=== PATIENT | female | born 1940 | race Caucasian/White ===

== ENCOUNTER 2019-06-17 09:17 | Outpatient (CLI) | payer MEDICARE, OTHER, SELFPAY ==
--- NOTE | 2019-06-17 09:37 | XR_ITS ---
WS: [id number] Mandible 4 views. HISTORY: Localized pain and swelling. Left-sided abscess. No soft tissue mass or air is identified adjacent to the LEFT mandible. No destruction of the cortex. No osteomyelitis is appreciated. No calcifications. XR/XR mandible min 4V [id number] IMPRESSION: No air collection or osteomyelitis.
[2019-06-17 10:10] LABS: Basophils % 0.6 %; Eosinophils # 0.4 10^3/uL (0.0-0.8); Eosinophils % 5.6 %; Hematocrit 41.9 % (37.0-47.0); Hemoglobin 13.8 g/dL (11.5-15.3); Lymphocytes # 0.9 10^3/uL (0.8-4.8); Lymphocytes % 12.4 %; Mean Corpuscular HGB Conc 32.9 g/dL (30.0-36.0); Mean Corpuscular Hemoglobin 28.7 pg (28.0-34.0); Mean Corpuscular Volume 87.1 fL (81-99); Mean Platelet Volume 9.2 fL (7.4-10.4); Monocytes # 0.7 10^3/uL (0.2-0.9); Neutrophils # 5.2 10^3/uL (1.8-7.7); Neutrophils % 72.1 %; Nucleated Red Blood Cells % 0 %; Platelet Count 313 10^3/cmm (130-400); Red Blood Count 4.81 10^6/uL (4.1-5.3); Red Cell Distribution Width 12.7 % (12.1-15.1); White Blood Count 7.2 10^3/uL (4.0-10.0)
[2019-06-17 10:57] LABS: Erythrocyte Sedimentation Rate 25 mm/hr (0-15)
== END 2019-06-17 09:18 | disposition home or self-care (01) ==
PROVIDERS: Family Provider Family Medicine; PCP Family Medicine; Visit Provider Specialist
DX: R68.84 Jaw pain (principal)
CPT/HCPCS: 36415; 70110; 85025; 85651; 87040

== ENCOUNTER 2019-06-22 08:48 | Outpatient (CLI) | payer MEDICARE, OTHER, SELFPAY ==
--- NOTE | 2019-06-22 08:55 | CT_ITS ---
WS: [id number] CT NECK TECHNIQUE: Contrast-enhanced CT of the neck with coronal and sagittal reformatted images. CLINICAL INFORMATION: LOCALIZED SWELLING, MASS, LUMP,NECK COMPARISON: None. DLP: 578.[address] scans at [facility] use at least one of these dose optimization techniques: automat ed exposure control; mA and/or kV adjustment per patient size (includes targeted exams where dose is matched to clinical indication); or iterative reconstruction. FINDINGS: Parotid glands are normal in appearance. Heterogeneously enhancing mass in the submandibular space ab utting the anterior aspect of the left submandibular gland. Submandibular space mass measures 2.2 x 2 .4 x 2.5 CM. This corresponds to the palpable marker. Associated mass effect on the anterior submandi bular gland. Findings are most consistent with malignancy. Consider primary salivary gland neoplasm v ersus metastatic disease. No evidence of supraglottic or glottic mass. Normal epiglottis. Subglottic airway is patent. Normal t hyroid gland. No other evidence of cervical lymphadenopathy. Right submandibular space is normal. Par anasal sinuses and mastoid air cells are well aerated. Advanced spondylitic changes cervical spine wi th grade 1 anterolisthesis C4 on C5 and C7 on T1. CT/CT neck w con* [id number] IMPRESSION: 1. Heterogeneously enhancing mass with central necrosis low-attenuation change corresponds to the palpable marker. This involves the left submandibular space with mass effect on the anterior aspect of the submandibular gland. Findings a re most consistent with neoplasm and consider primary salivary gland neoplasm v ersus metastatic disease. 2. Right submandibular gland and parotid glands are normal in appearance. 3. No evidence of supraglottic or glottic mass. 4. Tongue base appears normal. 5. Advanced spondylitic changes cervical spine. 6. Moderate calcified atheromatous disease both carotid bulbs left [place] right. Carotid arteries could be further evaluated with CTA or ultrasound.
[2019-06-22 09:59] LABS: Blood Urea Nitrogen 14 mg/dL (8-23)
[2019-06-22] MEDS: iohexol 300 mg/mL 100 mL Btl IV (10:09)
== END 2019-06-22 08:49 | disposition home or self-care (01) ==
LOC: CT 08:50
PROVIDERS: Family Provider Family Medicine; PCP Family Medicine; Visit Provider Specialist
DX: R22.1 Localized swelling, mass and lump, neck (principal); I67.2 Cerebral atherosclerosis
CPT/HCPCS: 36415; 70491; 82565; 84520

== ENCOUNTER 2019-11-13 11:39 | Inpatient (IN) | payer MEDICARE, OTHER, SELFPAY ==
[2019-11-13] VITALS (20 sets, daily range): BP systolic 103–122; BP diastolic 48–70; PULSE 64–83; RESP 14–20; TEMP 36.6–37; O2SAT 90–99; BMI 20.6
--- NOTE | 2019-11-13 11:48 | ECG_ITS ---
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 Measurements Intervals [place] Rate: 75 P: 38 [place]: 194 QRS: 15 QRSD: 94 T: 53 QT: 382 QTc: 428 Interpretive Statements SINUS RHYTHM WITH SINUS ARRHYTHMIA No previous ECG available for comparison Electronically Signed On 11-13-2019 13:55:25 CDT by Jg Morgan M.D. [id number]
--- NOTE | 2019-11-13 11:48 | XRR_ITS ---
PROCEDURE INFORMATION: Exam: XR Right Hip with Pelvis when Performed Exam date and time: 11/13/2019 11:49 AM Age: 78 years old Clinical indication: Injury or trauma; Fall; Initial encounter; Blunt trauma (contusions or hematomas); Right; Hip TECHNIQUE: Imaging protocol: XR Right hip with pelvis when performed. Views: 1 view. COMPARISON: CT Chest/Abdomen/Pelvis o 07/26/2014 2:52 PM FINDINGS: Bones/joints: There is a fracture of the right femoral neck. There is also a fracture of the right inferior pubic ramus. There is osteopenia. No dislocation. Soft tissues: Unremarkable. XR/XR hip RT 2-3V wo/w pel* [id number] IMPRESSION: There is a fracture of the right femoral neck and right inferior pubic ramus. If there is desire for further evaluation, a CT scan could be performed.
--- NOTE | 2019-11-13 12:13 | PC.NURSE ---
Lab at bedside to draw blood
[2019-11-13 12:19] LABS: Basophils % 0.3 %; Eosinophils # 0.2 10^3/uL (0.0-0.8); Eosinophils % 2.1 %; Hemoglobin 7.1 g/dL (11.5-15.3); Lymphocytes # 0.9 10^3/uL (0.8-4.8); Lymphocytes % 9.8 %; Mean Corpuscular HGB Conc 30.9 g/dL (30.0-36.0); Mean Corpuscular Hemoglobin 30.3 pg (28.0-34.0); Mean Corpuscular Volume 98.3 fL (81-99); Mean Platelet Volume 9.3 fL (7.4-10.4); Monocytes # 0.8 10^3/uL (0.2-0.9); Monocytes % 9.2 %; Neutrophils # 6.7 10^3/uL (1.8-7.7); Neutrophils % 77.2 %; Nucleated Red Blood Cells % 0 %; Platelet Count 348 10^3/cmm (130-400); Red Blood Count 2.34 10^6/uL (4.1-5.3); Red Cell Distribution Width 15.7 % (12.1-15.1); White Blood Count 8.7 10^3/uL (4.0-10.0)
[2019-11-13 12:27] LABS: INR 0.96 (0.8-1.2)
[2019-11-13] MEDS: ondansetron 2 mg/ML SDV 2 mL 4 MG IVP (12:28)
[2019-11-13] MEDS: fentaNYL 50 mcg/mL INJ 2mL 25 MCG IVP ×2 (12:28→13:51)
[2019-11-13 12:33] LABS: Alanine Aminotransferase 21 U/L (0-33); Albumin Level 3.5 g/dL (3.5-5.2); Alkaline Phosphatase 93 IU/L (35-105); Aspartate Amino Transferase 25 U/L (0-32); Blood Urea Nitrogen 16 mg/dL (8-23); Calcium 9.3 mg/dL (8.5-10.5); Carbon Dioxide 30 mmol/L (22-29); Chloride 98 mmol/L (98-107); Globulin 3.1 g/dL (1.3-4.6); Glucose 142 mg/dL (65-115); Osmolality Calculated 279 mOsm/kg (285-295); Sodium 135 mmol/L (136-145); Total Bilirubin 0.3 mg/dL (0.15-1.2); Total Protein 6.6 g/dL (6.6-8.7)
--- NOTE | 2019-11-13 12:41 | PC.NURSE ---
XR performed at bedside
--- NOTE | 2019-11-13 12:51 | PC.NURSE ---
Pt provided with warm blanket, no other needs at this time. Call light in reach, visitor at bedside. Pt placed on mitering machine operator
--- NOTE | 2019-11-13 13:01 | XRR_ITS ---
PROCEDURE INFORMATION: Exam: XR Chest, 1 View Exam date and time: 11/13/2019 1:03 PM Age: 78 years old Clinical indication: Pain; Patient HX: Pro op for hip SX; Additional info: Dyspnea/cough TECHNIQUE: Imaging protocol: XR of the chest Views: 1 view. COMPARISON: CR Chest 2 views* [id number] 03/10/2019 1:11 PM FINDINGS: Lungs: There is chronic lung change. No acute pneumonia or edema. Pleural space: Unremarkable. No pleural effusion. No pneumothorax. Heart/Mediastinum: Unremarkable. No cardiomegaly. Bones/joints: Unremarkable. XR/XR chest 1V portable [id number] IMPRESSION: There are no acute concerning abnormalities.
--- NOTE | 2019-11-13 13:02 | ECG_ITS ---
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 Measurements Intervals [place] Rate: 81 P: 258 ND: 170 QRS: 17 QRSD: 101 T: 58 QT: 412 QTc: 479 Interpretive Statements SINUS RHYTHM NONSPECIFIC T-WAVE ABNORMALITY Compared to ECG 11/13/2019 12:23:23 T-wave abnormality now present Sinus arrhythmia no longer present Electronically Signed On 11-14-2019 19:56:27 CDT by Jg Morgan M.D. [id number]
--- NOTE | 2019-11-13 13:08 | W.ED.FALL ---
HPI - Fall General: Chief Complaint: Fall Stated Complaint: RIGHT HIP AND FEMUR PAIN /P FALL Time Seen by Provider: 11/13/19 11:42 History of Present Illness: HPI Narrative: 78-year-old female brought in by EMS after a fall at home she tripped over a patch she has right hip pain holding in a flexed position unable to express extended she also has an abrasion on her right hand. 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 She is also become profoundly anemic she has been being worked up by Dr. Murphy for that and is still anemic today. She denies any other injuries when she fell today and she is not denies any respiratory illness or exposure to anyone with COVID that she is aware of. MD complaint: fall Onset (ago): minute(s) Fall from: standing Fall witnessed: yes, by family Place fall occurred: home Loss of consciousness: None Prolonged down time: no Symptoms prior to fall: none Context: tripped/slipped Location of injury: pelvis Severity: severe Quality: sharp Associated symptoms-after fall: Reports no associated symptoms; Denies abdominal pain or chest pain Review of Systems Const: Denies: fever(s), chills, body aches, change in appetite, fatigue or malaise ENMT: Denies: throat pain, ear or mastoid pain, nasal discharge or nasal congestion Card: Denies: chest pain, edema, dyspnea on exertion or orthopnea Resp: Denies: dyspnea, productive cough or non-productive cough GI: Denies: abdominal pain, nausea, vomiting, hematemesis, coffee ground emesis, diarrhea, constipation, bloating, hematochezia or melena : Denies: flank pain, difficulty voiding, dysuria, urinary frequency or urinary urgency Musc: Reports: extremity pain (Right hip pain held in a flexed position. She also has some abrasions on the knuckles of her right hand) Skin/Breast: Denies: rash or pruritus PFSH ED PFSH: Medical History (Updated 11/13/19 @ 14:52 by Papito Laureano DO) CAD (coronary artery disease) DVT (deep venous thrombosis) History of atrial fibrillation History of cancer Hypertension Squamous cell carcinoma of pharynx Surgical History (Updated 11/13/19 @ 13:12 by Papito Laureano DO) History of mandibular surgery S/P percutaneous endoscopic gastrostomy (PEG) tube placement Physical Exam Const: COMMON NORMALS: no acute distress GENERAL APPEARANCE: cooperative and comfortable ORIENTATION/CONSCIOUSNESS: Yes awake, Yes oriented to person, Yes oriented to place and Yes oriented to time HENMT: COMMON NORMALS: hearing grossly normal bilaterally, external ears normal, EAC's normal, TM's normal bilaterally, Normal nasal mucous membranes and turbinates present, moist oral mucous membranes and oropharynx normal NOSE: Normal nasal mucous membranes and turbinates present EXTERNAL EAR: Yes external ears normal EXTERNAL AUDITORY CANAL: EAC's normal TYMPANIC MEMBRANE: TM's normal bilaterally OTHER: Obvious deformity of the mandible with portions missing on the right side. There is also deformity of the tongue secondary to resection. Eye: COMMON NORMALS: Equal, round and reactive pupils present, EOMs intact bilaterally, conjunctivae normal and no scleral icterus CONJUNCTIVA: Yes conjunctivae normal PUPIL: Yes Equal, round and reactive pupils present Neck/C-Spine: COMMON NORMALS: full ROM, no lymphadenopathy, supple and no JVD Lymph: LYMPHATIC: no lymphadenopathy noted and no lymphedema noted Resp: COMMON NORMALS: normal respiratory effort, No retractions, No use of accessory muscles and clear to auscultation bilaterally AUSCULTATION: clear to auscultation bilaterally Cardio: COMMON NORMALS: no JVD, regular rate, regular rhythm and No murmurs present (Cardio) RATE: regular rate RHYTHM: regular rhythm GI: COMMON NORMALS: Soft to palpation and No hepatosplenomegaly present AUSCULTATION: Yes normoactive bowel sounds PALPATION: Yes Soft to palpation, No Tenderness to palpation present (GI), No Guarding due to palpation present (GI) and Yes No hepatosplenomegaly present Extremity: NARRATIVE EXTREMITY EXAM: Hip held in the flexed position on the right due to pain. When she was able to extend it after a time there is some shortening and external rotation Neuro: SENSORIUM/ORIENTATION: Yes oriented to person, Yes oriented to place and Yes oriented to time Skin: COMMON NORMALS: no rashes or lesions noted GENERAL SKIN EXAM: no rashes or lesions noted Course Vital Signs: Vital signs: Vital Signs Temperature 97.8 F 11/13/19 12:08 Pulse Rate 80 11/13/19 14:48 Respiratory Rate 14 11/13/19 14:48 Blood Pressure 115/56 11/13/19 14:48 Pulse Oximetry 98 11/13/19 14:48 MDM - Fall MDM Narrative: Medical decision making narrative: Impacted femoral neck fracture looks like she also has inferior pubic ramus fracture as well. Her hemoglobin is low she will need to be transfused prior to going to the operating room to units packed red blood cells have been ordered discussed Dr. Levine waiting on a call back from Dr. Dale. Lab Data: Labs: Lab Results 11/13/19 11/13/19 11/13/19 Range/Units 12:12 12:12 12:12 WBC 8.7 (4.0-10.0) 10^3/ uL RBC 2.34 L (4.1-5.3) 10^6/u L Hgb 7.1 L (11.5-15.3) g/dL Hct 23.0 L (37.0-47.0) % MCV 98.3 (81-99) fL MCH 30.3 (28.0-34.0) pg MCHC 30.9 (30.0-36.0) g/dL RDW 15.7 H (12.1-15.1) % Plt Count 348 (130-400) 10^3/c mm MPV 9.3 (7.4-10.4) fL Neut % (Auto) 77.2 % Lymph % (Auto) 9.8 % Prentiss % (Auto) 9.2 % Eos % (Auto) 2.1 % Baso % (Auto) 0.3 % Neut # (Auto) 6.7 (1.8-7.7) 10^3/u L Lymph # (Auto) 0.9 (0.8-4.8) 10^3/u L Prentiss # (Auto) 0.8 (0.2-0.9) 10^3/u L Eos # (Auto) 0.2 (0.0-0.8) 10^3/u L Baso # (Auto) 0.0 (0.0-0.1) 10^3/u L Nucleated RBC % (a uto) 0 % Nucleated RBCs # 0.0 /100WBC PT 13.10 (10.5-13.3) SECO NDS INR 0.96 (0.8-1.2) Sodium 135 L (136-145) mmol/L Potassium 4.0 (3.5-5.1) mmol/L Chloride 98 (98-107) mmol/L Carbon Dioxide 30 H (22-29) mmol/L Anion Gap 11.0 (5-19) BUN 16 (8-23) mg/dL Creatinine 0.5 (0.5-0.9) mg/dL Glucose 142 H (65-115) mg/dL Calculated Osmolal ity 279 L (285-295) mOsm/k g Calcium 9.3 (8.5-10.5) mg/dL Total Bilirubin 0.3 (0.15-1.2) mg/dL AST 25 (0-32) U/L ALT 21 (0-33) U/L Alkaline Phosphata se 93 (35-105) IU/L Total Protein 6.6 (6.6-8.7) g/dL Albumin 3.5 (3.5-5.2) g/dL Globulin 3.1 (1.3-4.6) g/dL Urine Color (Yellow) Urine Appearance (CLEAR) Urine pH (5-7) Ur Specific Gravit y (1.005-1.030) Urine Protein (Negative) Urine Glucose (UA) (Normal) Urine Ketones (Negative) Urine Blood (Negative) Urine Nitrate (Negative) Urine Bilirubin (NEGATIVE) Prot Sulfosalicyli c Acd (Negative) Urine Urobilinogen (Negative) mg/dL Ur Leukocyte Melvi ase (Negative) Urine RBC (0-2) /hpf Urine WBC (0-5) /hpf Ur Squamous Epith Cells (0-5) Amorphous Sediment Urine Bacteria (NONE) Urine Mucus Blood Type Rho(D) Type Crossmatch 11/13/19 11/13/19 Range/Units 13:23 13:31 WBC (4.0-10.0) 10^3/ uL RBC (4.1-5.3) 10^6/u L Hgb (11.5-15.3) g/dL Hct (37.0-47.0) % MCV (81-99) fL MCH (28.0-34.0) pg MCHC (30.0-36.0) g/dL RDW (12.1-15.1) % Plt Count (130-400) 10^3/c mm MPV (7.4-10.4) fL Neut % (Auto) % Lymph % (Auto) % Prentiss % (Auto) % Eos % (Auto) % Baso % (Auto) % Neut # (Auto) (1.8-7.7) 10^3/u L Lymph # (Auto) (0.8-4.8) 10^3/u L Prentiss # (Auto) (0.2-0.9) 10^3/u L Eos # (Auto) (0.0-0.8) 10^3/u L Baso # (Auto) (0.0-0.1) 10^3/u L Nucleated RBC % (a uto) % Nucleated RBCs # /100WBC PT (10.5-13.3) SECO NDS INR (0.8-1.2) Sodium (136-145) mmol/L Potassium (3.5-5.1) mmol/L Chloride (98-107) mmol/L Carbon Dioxide (22-29) mmol/L Anion Gap (5-19) BUN (8-23) mg/dL Creatinine (0.5-0.9) mg/dL Glucose (65-115) mg/dL Calculated Osmolal ity (285-295) mOsm/k g Calcium (8.5-10.5) mg/dL Total Bilirubin (0.15-1.2) mg/dL AST (0-32) U/L ALT (0-33) U/L Alkaline Phosphata se (35-105) IU/L Total Protein (6.6-8.7) g/dL Albumin (3.5-5.2) g/dL Globulin (1.3-4.6) g/dL Urine Color Yellow (Yellow) Urine Appearance Sl hazy (CLEAR) Urine pH 8 H (5-7) Ur Specific Gravit y 1.010 (1.005-1.030) Urine Protein Neg (Negative) Urine Glucose (UA) Norm (Normal) Urine Ketones Negative (Negative) Urine Blood Neg (Negative) Urine Nitrate Negative (Negative) Urine Bilirubin Neg (NEGATIVE) Prot Sulfosalicyli c Acd Negative (Negative) Urine Urobilinogen Norm (Negative) mg/dL Ur Leukocyte Melvi ase Negative (Negative) Urine RBC None (0-2) /hpf Urine WBC Rare (0-5) /hpf Ur Squamous Epith Cells Rare (0-5) Amorphous Sediment Trace Urine Bacteria Trace (NONE) Urine Mucus Trace Blood Type O Positive Rho(D) Type Positive Crossmatch See Detail Discharge Plan Discharge Patient Disposition: Admitted As Inpatient Admit Provider: Sneha Levine Clinical Impression: Closed fracture of neck of right femur, Squamous cell carcinoma of pharynx, Hypertension, DVT (deep venous thrombosis), Closed fracture of inferior pubic ramus Condition: Stable Interventions: ED Discharge Assessment Last Done: 11/13/19 14:48 ED Charges Last Done: 11/13/19 14:48 Coding Level of Care Code ED Armored Car Messenger for Chg Fwd Exam Comprehensive
--- NOTE | 2019-11-13 13:09 | XRR_ITS ---
PROCEDURE INFORMATION: Exam: XR Right Hand Exam date and time: 11/13/2019 1:20 PM Age: 78 years old Clinical indication: Injury or trauma; Fall; Initial encounter; Blunt trauma (contusions or hematomas; Hand; Right; Injury date: Today; Additional info: Fall pain TECHNIQUE: Imaging protocol: XR Right hand. Views: 3 or more views. COMPARISON: No relevant prior studies available. FINDINGS: Bones/joints: There is osteopenia. There is deformity of the right 4th proximal phalanx which appears old. No acute fracture. Soft tissues: There is soft tissue swelling of the right 2nd and 3rd digits. Positioning of the right hand is suboptimal. XR/XR hand RT min 3V* [id number] IMPRESSION: There is no evidence for acute fracture or malalignment.
[2019-11-13 13:48] LABS: Add Urine Microscopic? YES; Bilirubin Urine Neg (NEGATIVE); Blood Urine Neg (Negative); Glucose Urine UA Norm (Normal); Ketones Urine Negative (Negative); Leukocyte Esterase Urine Negative (Negative); Nitrate Urine Negative (Negative); Protein Urine Neg (Negative); Urine Appearance SL Hazy (CLEAR); Urine Color Yellow (Yellow); Urobilinogen Urine Norm (Negative); pH Urine 8 (5-7)
--- NOTE | 2019-11-13 13:57 | PC.NURSE ---
Pt given pain meds per dr order. Pt repositioned for comfort. Call light in reach, updated on pending admission.
[2019-11-13 14:15] LABS: Sulfosalicylic Acid Urine Negative (Negative)
[2019-11-13 14:16] LABS: Add Urine Culture? No; Amorphous Sediment Urine TRACE; Bacteria Urine TRACE; Mucus Urine TRACE; Squamous Epithelial Cell Urine RARE (0-5); WBC Urine RARE /hpf (0-5)
--- NOTE | 2019-11-13 15:25 | XRR_ITS ---
PROCEDURE INFORMATION: Exam: XR Right Hip with Pelvis when Performed Exam date and time: 11/13/2019 4:36 PM Age: 78 years old Clinical indication: Injury or trauma; Fall; Initial encounter; Blunt trauma (contusions or hematomas); Right; Injury details: Repeat hip xray; Additional info: Fall/fx TECHNIQUE: Imaging protocol: XR Right hip with pelvis when performed. Views: 1 view. COMPARISON: CR (PELVIS, ) 11/13/2019 12:36 PM FINDINGS: Bones/joints: There is a minimally displaced fracture of the right femoral neck. No dislocation. There is osteopenia. Soft tissues: Unremarkable. XR/XR hip RT 2-3V wo/w pel* [id number] IMPRESSION: There is a minimally displaced fracture of the right femoral neck.
[2019-11-13] MEDS: D5-NS 0.45% + KCL 20 mEq 20 MEQ/1,000 ML BAG 100 MEQ IV (16:00)
[2019-11-13] MEDS: sodium chloride 0.9% (100 ml) 100 ML 50 ML ×2 (17:33→22:38)
--- NOTE | 2019-11-13 18:24 | PM.HP ---
Providers/Chief Complaint Admitting Physician: Sneha Levine MD Primary Care Provider: Richy Murphy MD Chief Complaint: RIGHT HIP AND FEMUR PAIN /P FALL History of Present Illness Lian Posada is a 78 year old female with PMH what appears to be oropharyngeal ca s/p mandibular resection and flap reconstruction, did well post operatively, just returned to her home from son's home after extended rehab stay two days ago. She was bending over to pet her dog, lost balance and tripped over to fall on her concrete patio resulting in minimally displaced fractur of right femoral neck. C/o pain at site currently. Hb incidentally noted to be 7. Two units blood transfusion has been ordered from [facility] ER. Orthopedics has been consulted Review of Systems General: Reports: 10 or more systems reviewed and unremarkable except in HPI and below Const: Denies: fever(s), chills or body aches Eyes: Denies: change in vision, blurry vision or photophobia ENMT: Denies: throat pain, enlarged tonsils, odynophagia or nasal congestion Card: Denies: chest pain, palpitations, irregular heart rhythm, edema, swelling of feet/ankles, lightheadedness, pre-syncope, dyspnea on exertion or orthopnea Resp: Denies: dyspnea, productive cough, non-productive cough, wheezing, stridor, pain on inspiration, change in phlegm color, hemoptysis or chest congestion GI: Denies: abdominal pain, nausea, vomiting, hematemesis, coffee ground emesis, dysphagia, heartburn, diarrhea, constipation, GI cramping, change in stool character, hematochezia or melena : Denies: flank pain, difficulty voiding, dysuria, urinary frequency, urinary urgency, urinary hesitancy or hematuria Musc: Denies: neck pain, back pain, extremity pain, joint swelling, joint warmth or deformity Neuro: Denies: headache(s), numbness in extremities, weakness in extremities, sensory changes, difficulty walking, frequent falls, dizziness, vertigo, behavioral changes, Slurred speech present or seizure-like activity Psych: Denies: anxiety, depression, suicidal ideation or homicidal ideation Endo: Denies: polyuria, polydipsia, tired all the time, cold intolerance or hot flashes Donte/Lymph: Denies: easy bruising or easy bleeding Medications/Allergies Home Medications Medication Instructions Recorded Confirmed Last Taken Type carvedilol 6.25 mg PO BID 11/13/19 11/13/19 11/13/19 History clindamycin HCl 300 mg PO QID 11/13/19 11/13/19 11/13/19 History clopidogrel 75 mg PO DAILY 11/13/19 11/13/19 11/13/19 History diltiazem HCl 60 mg PO TID 11/13/19 11/13/19 11/13/19 History diphenhydramine HCl [Benadryl] 50 mg PO BEDTIME 11/13/19 11/13/19 11/12/19 History hydrochlorothiazide 12.5 mg PO DAILY 11/13/19 11/13/19 11/13/19 History sertraline 100 mg PO DAILY 11/13/19 11/13/19 11/13/19 History Allergies Allergy/AdvReac Type Severity Reaction Status Date / Time Penicillins Allergy Unknown Verified 11/13/19 12:09 Sulfa (Sulfonamide Allergy Unknown Verified 11/13/19 12:09 Antibiotics) PFSH Acute PFSH: Medical History CAD (coronary artery disease) DVT (deep venous thrombosis) History of atrial fibrillation History of cancer Hypertension Squamous cell carcinoma of pharynx Surgical History History of mandibular surgery S/P percutaneous endoscopic gastrostomy (PEG) tube placement Vitals/I&O/Wt Last Vital Signs Temp 98.4 F 11/13/19 17:42 Pulse 75 11/13/19 17:42 Resp 18 11/13/19 17:42 BP 118/62 11/13/19 17:42 Pulse Ox 93 11/13/19 17:42 11/13/19 11/13/19 11/13/19 06:59 14:59 22:59 Intake Total 337 / 337 Balance 337 / 337 Weight last 48 hrs Weight 56.245 kg Physical Exam Narrative: EXAM NARRATIVE: GEN: Awake, alert and oriented, no acute distress , chronically ill frail appearing lady HEENT: pallor+ Chest: small area of open incision over her left chest wall flap, patient states this is chronic CVS: S1S2 N RS: CTA B/L Abd: Soft, nt/nd , bs+ , Peg in place , no surrounding cellulitis DATABASE DBA: no focal neuro deficits Urinary Catheter Management^: : Cath Placed During This Visit: yes Urinary Catheter Date of Insertion: 11/13/19 Urinary Catheter Time of Insertion: 13:31 Data : 11/13/19 12:12 11/13/19 12:12 A&P Assessment and plan (1) Closed fracture of neck of right femur: Consult placed from ER with Dr. Dale, awaiting surgical plan Status: Acute (2) Closed fracture of inferior pubic ramus: Status: Acute (3) Squamous cell carcinoma of pharynx: s/p mandibular resection with flap surgery and PEG placement. Status: Acute (4) Hypertension: continue carvedilol Status: Acute (5) Anemia: transfuse 2 units of PRBC today Fe panle, b12 aand folate levels Status: Acute (6) H/O coronary atherosclerosis: Patient only on plavix , hole for now in anticiptaion of surgery Status: Acute (7) Atrial fibrillation: currently rate controlled on coreg and ca channel blockers at home, continue for now Status: Acute Attestations Medical Necessity Statement*: > 2 midnight anticiated for femur fracture and surgical repaair Coding Level of Care Code Acute Farm Planner for Chg Fwd Diagnoses Closed fracture of neck of right femur S72.001A Closed fracture of inferior pubic ramus S32.599A Squamous cell carcinoma of pharynx C14.0 Hypertension I10 Anemia D64.9 H/O coronary atherosclerosis Z86.79 Atrial fibrillation I48.91
[2019-11-13] MEDS: HYDROcodone-acetaminophen 5-325 mg Tablet 1 TAB PO (19:02)
[2019-11-13] MEDS: clindamycin 150 mg Capsule 300 MG PO (21:26)
[2019-11-13] MEDS: dilTIAZem 60 mg Tablet PO (21:27)
[2019-11-13] MEDS: morphine 4 mg/mL SDV 1 mL 2 MG IVP (22:37)
[2019-11-14] VITALS (12 sets, daily range): BP systolic 99–122; BP diastolic 51–63; PULSE 67–78; RESP 16–18; TEMP 36.4–37.2; O2SAT 91–95
[2019-11-14 00:45] LABS: Folate Level 14.2 ng/mL (4.8-37.3)
[2019-11-14] MEDS: HYDROcodone-acetaminophen 5-325 mg Tablet 1 TAB PO ×3 (01:19→21:20)
--- NOTE | 2019-11-14 01:27 | PC.NURSE ---
Pain med This nurse unable to scan Hydrocodone 5-325mg tab d/t barcode being torn. Medication double-checked and verified by Chicho Holguin LPN and witnessed administration.
[2019-11-14 01:37] LABS: Iron 53 ug/dL (37-145); Vitamin B12 920 pg/mL (232-1245)
--- NOTE | 2019-11-14 02:07 | PC.NURSE ---
Blood Transfusion 2nd unit prbc's ended at 0200. Transfusion was ran at 100mL/hr the first 2 hours after the first 15m at 50mL/hr and then at 125mL/hr for the remaining time.
[2019-11-14 05:21] LABS: Basophils % 0.4 %; Eosinophils # 0.2 10^3/uL (0.0-0.8); Eosinophils % 2.2 %; Hemoglobin 8.7 g/dL (11.5-15.3); Lymphocytes % 13.7 %; Mean Corpuscular HGB Conc 31.1 g/dL (30.0-36.0); Mean Corpuscular Hemoglobin 29.2 pg (28.0-34.0); Mean Platelet Volume 10.1 fL (7.4-10.4); Monocytes # 0.9 10^3/uL (0.2-0.9); Monocytes % 12.5 %; Neutrophils # 4.9 10^3/uL (1.8-7.7); Neutrophils % 70.8 %; Nucleated Red Blood Cells % 0 %; Platelet Count 292 10^3/cmm (130-400); Red Blood Count 2.98 10^6/uL (4.1-5.3); White Blood Count 6.9 10^3/uL (4.0-10.0)
[2019-11-14 05:45] LABS: Alanine Aminotransferase 15 U/L (0-33); Albumin Level 3.1 g/dL (3.5-5.2); Alkaline Phosphatase 86 IU/L (35-105); Anion Gap 14.8 (5-19); Aspartate Amino Transferase 21 U/L (0-32); Blood Urea Nitrogen 11 mg/dL (8-23); Calcium 8.6 mg/dL (8.5-10.5); Carbon Dioxide 27 mmol/L (22-29); Chloride 99 mmol/L (98-107); Globulin 3.1 g/dL (1.3-4.6); Glucose 105 mg/dL (65-115); Osmolality Calculated 280 mOsm/kg (285-295); Potassium 3.8 mmol/L (3.5-5.1); Sodium 137 mmol/L (136-145); Total Bilirubin 0.6 mg/dL (0.15-1.2); Total Protein 6.2 g/dL (6.6-8.7)
[2019-11-14] MEDS: D5-NS 0.45% + KCL 20 mEq 20 MEQ/1,000 ML BAG 100 MEQ IV ×2 (08:11→17:51)
[2019-11-14] MEDS: morphine 4 mg/mL SDV 1 mL 2 MG IVP ×2 (08:25→16:00)
[2019-11-14] MEDS: dilTIAZem 60 mg Tablet PO ×3 (09:54→21:20)
[2019-11-14] MEDS: sertraline 100 mg Tablet PO (09:54)
[2019-11-14] MEDS: clindamycin 150 mg Capsule 300 MG PO ×4 (09:54→21:20)
[2019-11-14] MEDS: carvedilol 6.25 mg Tablet PO ×2 (09:54→17:51)
--- NOTE | 2019-11-14 13:02 | PM.CONSULT ---
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 She did well and she states had approximately a 4-month stay in [place]. He apparently returned home and was staying with her daughters. Yesterday she bent over to pet her dog when she lost her balance falling injuring her right hip. She complains of moderate pain. She is been unable to bear weight. He received 2 units of packed red blood cells from the emergency room. Meds/Allergies Home Medications and Allergies Home Medications Medication Instructions Recorded Confirmed Last Taken Type carvedilol 6.25 mg PO BID 11/13/19 11/13/19 11/13/19 History clindamycin HCl 300 mg PO QID 11/13/19 11/13/19 11/13/19 History clopidogrel 75 mg PO DAILY 11/13/19 11/13/19 11/13/19 History diltiazem HCl 60 mg PO TID 11/13/19 11/13/19 11/13/19 History diphenhydramine HCl [Benadryl] 50 mg PO BEDTIME 11/13/19 11/13/19 11/12/19 History hydrochlorothiazide 12.5 mg PO DAILY 11/13/19 11/13/19 11/13/19 History sertraline 100 mg PO DAILY 11/13/19 11/13/19 11/13/19 History Allergies Allergy/AdvReac Type Severity Reaction Status Date / Time Penicillins Allergy Unknown Verified 11/13/19 12:09 Sulfa (Sulfonamide Allergy Unknown Verified 11/13/19 12:09 Antibiotics) Current Medications Current Medications Generic Name Dose Route Start Last Admin Trade Name Freq PRN Reason Stop Dose Admin Hydrocodone Bitart/Acetaminophen 1 tab 11/13/19 18:24 11/14/19 09:53 [place] 5-325 Mg PO 1 tab Q4H PRN Administration MODERATE TO SEVERE PAIN Carvedilol 6.25 mg 11/14/19 09:00 11/14/19 09:54 Coreg PO 6.25 mg BID FREDERIC Administration Clindamycin HCl 300 mg 11/13/19 21:00 11/14/19 09:54 Cleocin PO 300 mg QID FREDERIC Administration Diltiazem HCl 60 mg 11/13/19 21:00 11/14/19 09:54 Cardizem PO 60 mg TID FREDERIC Administration Potassium Chloride/Dextrose/Sod Cl 20 meq in 1,000 mls @ 100 mls/hr 11/13/19 15:25 11/14/19 08:11 D5-Ns 0.45% + Kcl 20 Meq IV 100 mls/hr .Q10H FREDERIC Administration Morphine Sulfate 2 mg 11/13/19 15:25 11/14/19 08:25 Morphine IVP 2 mg Q4H PRN Administration SEVERE PAIN Sertraline HCl 100 mg 11/14/19 09:00 11/14/19 09:54 Zoloft PO 100 mg DAILY FREDERIC Administration PFSH Acute PFSH: Medical History CAD (coronary artery disease) DVT (deep venous thrombosis) History of atrial fibrillation History of cancer Hypertension Squamous cell carcinoma of pharynx Surgical History History of mandibular surgery S/P percutaneous endoscopic gastrostomy (PEG) tube placement Vitals/I&O/Wt Last Vital Signs Temp 97.5 F L 11/14/19 11:22 Pulse 67 11/14/19 11:22 Resp 16 11/14/19 11:22 BP 99/58 11/14/19 11:22 Pulse Ox 93 11/14/19 11:22 11/13/19 11/14/19 11/14/19 22:59 06:59 14:59 Intake Total 687 / 687 1350 / 7 387 / 387 Output Total 0 / 0 Balance 687 / 687 1350 / 7 387 / 387 Weight last 48 hrs Weight 124 lb Physical Exam Narrative: EXAM NARRATIVE: Patient answers questions appropriately. She is not oriented to person place or time but cannot recall the specifics of her past hospitalization HEAD: Normocephalic/atraumatic. NECK: Soft supple nontender. HEART: Normal heart sounds, regular rhythm. CHEST: Clear to auscultation. ABDOMEN: Soft nontender nondistended. G-tube is Patient has exquisite pain with internal or external rotation of the right hip He has a palpable right dorsalis pedis pulse. She will flex extend her toes and react without a motor deficits. Urinary Catheter Management^: : Cath Placed During This Visit: yes Reason for Continuing Indwelling Catheter: Required Immobilization for Trauma or Surgery or Anesthesia Urinary Catheter Date of Insertion: 11/13/19 Urinary Catheter Time of Insertion: 13:31 Data Imaging^: Xray Ortho: My impression: I reviewed radiographs of the right hip revealing a displaced right femoral neck fracture A&P Assessment and plan (1) Closed fracture of neck of right femur: Discussed options with the patient. I discussed options with the patient and family. I told them possible treatments for displaced femoral neck fracture would include nonoperative treatment, open reduction internal fixation, or hemiarthroplasty. I told them without treatment the patient would experience ongoing of pain that would limit mobility. This would require pain medications and place her at medical risks due to prolonged periods of bed rest. I discussed the possibility of open reduction internal fixation with pins. I warned them that for displaced fractures of the risk of nonunion and malunion is exceptionally high. In addition there is a high likelihood that the blood applied to the femoral head has been disrupted and that even with successful stabilization of the fracture the femoral head will go on to . I finally discussed the possibility of hemiarthroplasty. I think this would give the patient the greatest chance of being immediately mobilized. I discussed risk of a bleeding and a possible need for blood products. I discussed risk of deep venous thromboses and pulmonary emboli and the need for anticoagulation. If she did indeed have a recent history of a deep venous thromboses she will need mechanical and medical prophylaxis. With her history of deep venous thromboses I will give TXA only topically. I discussed risk of component failure and loosening that could require revision. I discussed the risk of dislocation and a bipolar arthroplasty which is quite unlikely. After a long discussion of options they agree to hemiarthroplasty of the hip. I told him ultimately the patient will likely require custodial placement. 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
--- NOTE | 2019-11-14 17:39 | PM.PN ---
Subjective Subjective: Interval history: No acute overnight events, s/p 2 units PRBC transfusion Hb today at 8.7. Medications: Reviewed: Yes Vitals/I&O/Wt Last Vital Signs Temp 97.8 F 11/14/19 15:18 Pulse 70 11/14/19 15:18 Resp 18 11/14/19 16:00 BP 118/63 11/14/19 15:18 Pulse Ox 95 11/14/19 15:18 11/14/19 11/14/19 11/14/19 06:59 14:59 22:59 Intake Total 1352036 744 / 744 Balance 1352036 744 / 744 Weight last 48 hrs Weight 56.245 kg Physical Exam Narrative: EXAM NARRATIVE: GEN: Awake, alert and oriented, no acute distress , chronically ill frail appearing lady HEENT: pallor+ Chest: small area of open incision over her left chest wall flap, no signs of active infection. 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 Planned for hip arthroplasty tomorrow morning. Plavix on hold since Friday Confirmed with daughter that patient was not on any anticoagulation Status: Acute (2) Closed fracture of inferior pubic ramus: Status: Acute (3) Squamous cell carcinoma of pharynx: s/p mandibular resection with flap surgery and PEG placement in August 2019 Post op recovered well except for small area of flap breakdown over left chest wall. healing well. was on clindamycin as outpatient given PCN allergies. Will change to cefazolin perioperatively. Check MRSA nasal PCR , in case colonized, will need to change alejandra op ppx to vancomycin. Per discussion with daughter she appears to have tolerated cephalosporins during recent surgery in [place]. Status: Acute (4) Hypertension: continue carvedilol Status: Acute (5) Anemia: s/p 2 units of PRBC today Iron B12 and folate B12 aand folate levels within range. Occult blood pending. Status: Acute (6) H/O coronary atherosclerosis: Patient only on plavix , hold for now in anticiptaion of surgery. Patient also has a history of carotid artery stenosis greater than 80% which was corrected by placement of a stent prior to her recent surgery. Plavix continuing for the same. She was additionally also on aspirin which was discontinued due to concern for GI bleeding presenting as black tarry stools. 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
[2019-11-14] MEDS: lanolin oint 7 gm 1 APPLIC TOPICAL (17:50)
--- NOTE | 2019-11-14 21:51 | PC.NURSE ---
pt received 240 ml of jevity per peg tube, no residual noted Meds per tube tolerated well flushed with h2o without difficulty.
[2019-11-15] VITALS (19 sets, daily range): BP systolic 115–146; BP diastolic 52–86; PULSE 62–86; RESP 12–25; TEMP 36.4–36.9; O2SAT 92–100
[2019-11-15] MEDS: morphine 4 mg/mL SDV 1 mL 2 MG IVP ×5 (03:08→20:03)
[2019-11-15] MEDS: D5-NS 0.45% + KCL 20 mEq 20 MEQ/1,000 ML BAG 100 MEQ IV (03:09)
[2019-11-15 05:54] LABS: Basophils % 0.4 %; Eosinophils # 0.2 10^3/uL (0.0-0.8); Eosinophils % 3.7 %; Hematocrit 29.1 % (37.0-47.0); Hemoglobin 8.8 g/dL (11.5-15.3); Lymphocytes # 0.6 10^3/uL (0.8-4.8); Mean Corpuscular HGB Conc 30.2 g/dL (30.0-36.0); Mean Corpuscular Hemoglobin 29.4 pg (28.0-34.0); Mean Corpuscular Volume 97.3 fL (81-99); Mean Platelet Volume 10.6 fL (7.4-10.4); Monocytes # 0.7 10^3/uL (0.2-0.9); Neutrophils % 71.5 %; Nucleated Red Blood Cells % 0 %; Platelet Count 251 10^3/cmm (130-400); Red Blood Count 2.99 10^6/uL (4.1-5.3); Red Cell Distribution Width 16.1 % (12.1-15.1); White Blood Count 5.6 10^3/uL (4.0-10.0)
[2019-11-15 06:28] LABS: Slide Review Slide Review Perform
--- NOTE | 2019-11-15 11:01 | PC.NUTR ---
NUTR TF RECOMMENDATIONS: Jevity with goal rate of 45 ml/hr providing 1296 kcal (97%), 59 g PRO (105%), and 872 ml fluid (66%)(%NEEDS). Suggest starting TF at 25 ml/hr and increase by 10 ml Q6H as tolerated till goal rate is met. Suggest H2O flushes of 50 ml Q4H to approach fluid needs or per physician. BOLUS: 5 cans daily total with 1/2 cup H2O flush after each feeding, 3 x per day
--- NOTE | 2019-11-15 11:57 | PM.PN ---
Subjective Subjective: Interval history: Patient's continue to have some mild pain with her hip. No chest pain or shortness of breath. No fevers or chills. Overall seems to be in good spirits. Vitals/I&O/Wt Last Vital Signs Temp 98.4 F 11/15/19 08:00 Pulse 68 11/15/19 08:00 Resp 18 11/15/19 11:37 BP 132/68 11/15/19 08:00 Pulse Ox 92 11/15/19 08:00 11/14/19 11/15/19 11/15/19 22:59 06:59 14:59 Intake Total 1246.667 / 2920.667 930 / 2920.667 Output Total 800 / 1775 975 / 1775 Balance 446.667 / 1145.667 -45 / 1145.667 Weight last 48 hrs Weight 124 lb Physical Exam Narrative: EXAM NARRATIVE: General: No acute distress, Alert. Well nourished. Heart: Regular rate and rhythm. No murmurs, rubs or gallops. Normal capillary refill. Lungs: Clear to auscultation. No wheezes, rhonchi or rales. Abdomen: Positive bowel sounds. Non-tender, non-distended. No hepatosplenomegaly. No gaurding. Extremities: No clubbing, cyanosis, or edema. Negative Eddie's Urinary Catheter Management^: : Cath Placed During This Visit: yes Reason for Continuing Indwelling Catheter: Other Urinary Catheter Date of Insertion: 11/13/19 Urinary Catheter Time of Insertion: 13:31 Data : 11/15/19 05:05 11/14/19 03:50 A&P Assessment and plan (1) Closed fracture of neck of right femur: -Patient is cleared for surgery today. Appreciate orthopedics consultation and treatment. Status: Acute (2) Atrial fibrillation: Stable. She is in sinus rhythm at this time. Status: Acute (3) Anemia: This is from previous GI bleeds. Overall stable. 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 She has been set up as an outpatient with oncology for radiation therapy. Status: Acute Attestations Medical Necessity Statement*: Patient is a 78-year-old female with hip fracture requiring surgical intervention and continued inpatient monitoring and treatment. 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
--- NOTE | 2019-11-15 13:15 | P.ANESASSM_ITS ---
Pre-Anesthetic Assessment Pre-Anesthetic Assessment: Height/Weight: Height 1.65 m Weight 56.245 kg Temp Pulse Resp BP Pulse Ox 98.5 F 86 18 145/72 92 11/15/19 12:59 11/15/19 12:59 11/15/19 12:59 11/15/19 12:59 11/15/19 12:59 Preop Diagnosis: Right femoral neck fracture Proposed Procedure: Operation Date: 11/15/19 12:25 Proposed Procedures p Hemiarthroplasty Hip(Right) - Wlado Dale MD Last intake: Intake Last Liquid Date 11/13/19 Last Liquid Time 20:00 Last Solid Date 11/13/19 Last Solid Time 10:00 Social: Social History: No alcohol and No tobacco Exam: Pre-Anes Outpt Exam: alert, oriented x 3 and clear to auscultation bi laterally Additional Exam Findings (including area of procedure): A fib Airway: Submandibular: WNL Cervical ROM: WNL MP: 2 Dentition: Other (poor dentation. S/P neck disection.) History/ROS: No significant history except as noted Pulmonary: Pulmonary: None reported CV/HEM: CV/HEM: Afib, CAD, DVT and HTN : : None reported Hepatic: Hepatic: None reported GI: GI: None reported Metabolic: Metabolic: None reported Musc/skel: Musc/skel: OA/DJD Neuropsych: Comments: left side face numbness Anesthetic Plan: ASA status: 3 Anesthesia: Anesthesia Evaluation and General Other: need to use glidescope Risk of > 500 ml blood loss (7ml/kg in children): Yes, adequate IV access and fluids planned Meds/Allergies Current Medications: Current Medications Generic Name Dose Route Start Last Admin Trade Name Freq PRN Reason Stop Dose Admin Hydrocodone Bitart /Acetaminophen 1 tab 11/13/19 18:24 11/14/19 21:20 [place] 5-325 Mg PO 1 tab Q4H PRN Administration MODERATE TO SEVER E PAIN Carvedilol 6.25 mg 11/14/19 09:00 11/15/19 11:02 Coreg PO Not Given BID FREDERIC Clindamycin HCl 300 mg 11/13/19 21:00 11/15/19 11:02 Cleocin PO Not Given QID FREDERIC Diltiazem HCl 60 mg 11/13/19 21:00 11/15/19 11:02 Cardizem PO Not Given TID FREDERIC Potassium Chloride /Dextrose/Sod Cl 20 meq in 1,000 m ls @ 100 mls/hr 11/13/19 15:25 11/15/19 03:09 D5-Ns 0.45% + Kit l 20 Meq IV 100 mls/hr .Q10H FREDERIC Administration Lanolin 1 applic 11/14/19 17:14 11/14/19 17:50 Lanolin Oint TOPICAL 1 applic PRN PRN Administration DRYNESS Morphine Sulfate 2 mg 11/13/19 15:25 11/15/19 11:37 Morphine IVP 2 mg Q4H PRN Administration SEVERE PAIN Sertraline HCl 100 mg 11/14/19 09:00 11/15/19 11:08 Zoloft PO Not Given DAILY FREDERIC PFSH Anesthesia PFSH: Medical History CAD (coronary artery disease) DVT (deep venous thrombosis) History of atrial fibrillation History of cancer Hypertension Squamous cell carcinoma of pharynx Surgical History History of mandibular surgery S/P percutaneous endoscopic gastrostomy (PEG) tube placement Data Anesthesia CBC & Chem 7: 11/15/19 05:05 11/14/19 03:50 Other Labs: Laboratory Results - last 48 hr 11/13/19 11/13/19 11/13/19 12:12 12:12 13:23 WBC RBC Hgb Hct MCV MCH MCHC RDW Plt Count MPV Neut % (Auto) Lymph % (Auto) Mcintosh % (Auto) Eos % (Auto) Baso % (Auto) Neut # (Auto) Lymph # (Auto) Mcintosh # (Auto) Eos # (Auto) Baso # (Auto) Nucleated RBC % (auto) Nucleated RBCs # Sodium Potassium Chloride Carbon Dioxide Anion Gap BUN Creatinine Glucose Calculated Osmolality Calcium Iron 53 Total Bilirubin AST ALT Alkaline Phosphatase Total Protein Albumin Globulin Vitamin B12 920 Folate 14.2 Urine Color Yellow Urine Appearance Sl hazy Urine pH 8 H Ur Specific [place] 1.010 Urine Protein Neg Urine Glucose (UA) Norm Urine Ketones Negative Urine Blood Neg Urine Nitrate Negative Urine Bilirubin Neg Prot Sulfosalicylic Acd Negative Urine Urobilinogen Norm Ur Leukocyte Esterase Negative Urine RBC None Urine WBC Rare Ur Squamous Epith Cells Rare Amorphous Sediment Trace Urine Bacteria Trace Urine Mucus Trace Blood Type Rho(D) Type Antibody Screen Crossmatch 11/13/19 11/14/19 11/14/19 13:31 03:50 03:50 WBC 6.9 RBC 2.98 L Hgb 8.7 L Hct 28.0 L MCV 94.0 MCH 29.2 MCHC 31.1 RDW 16.0 H Plt Count 292 MPV 10.1 Neut % (Auto) 70.8 Lymph % (Auto) 13.7 [place]intosh % (Auto) 12.5 Eos % (Auto) 2.2 Baso % (Auto) 0.4 Neut # (Auto) 4.9 Lymph # (Auto) 1.0 [place]intosh # (Auto) 0.9 Eos # (Auto) 0.2 Baso # (Auto) 0.0 Nucleated RBC % (auto) 0 Nucleated RBCs # 0.0 Sodium 137 Potassium 3.8 Chloride 99 Carbon Dioxide 27 Anion Gap 14.8 BUN 11 Creatinine 0.4 L Glucose 105 Calculated Osmolality 280 L Calcium 8.6 Iron Total Bilirubin 0.6 AST 21 ALT 15 Alkaline Phosphatase 86 Total Protein 6.2 L Albumin 3.1 L Globulin 3.1 Vitamin B12 Folate Urine Color Urine Appearance Urine pH Ur Specific [place] Urine Protein Urine Glucose (UA) Urine Ketones Urine Blood Urine Nitrate Urine Bilirubin Prot Sulfosalicylic Acd Urine Urobilinogen Ur Leukocyte Esterase Urine RBC Urine WBC Ur Squamous Epith Cells Amorphous Sediment Urine Bacteria Urine Mucus Blood Type O Positive Rho(D) Type Positive Antibody Screen Negative Crossmatch See Detail 11/15/19 05:05 WBC 5.6 RBC 2.99 L Hgb 8.8 L Hct 29.1 L MCV 97.3 MCH 29.4 MCHC 30.2 RDW 16.1 H Plt Count 251 MPV 10.6 H Neut % (Auto) 71.5 Lymph % (Auto) 11.0 Mcintosh % (Auto) 13.0 Eos % (Auto) 3.7 Baso % (Auto) 0.4 Neut # (Auto) 4.0 Lymph # (Auto) 0.6 L Mcintosh # (Auto) 0.7 Eos # (Auto) 0.2 Baso # (Auto) 0.0 Nucleated RBC % (auto) 0 Nucleated RBCs # 0.0 Sodium Potassium Chloride Carbon Dioxide Anion Gap BUN Creatinine Glucose Calculated Osmolality Calcium Iron Total Bilirubin AST ALT Alkaline Phosphatase Total Protein Albumin Globulin Vitamin B12 Folate Urine Color Urine Appearance Urine pH Ur Specific [place] Urine Protein Urine Glucose (UA) Urine Ketones Urine Blood Urine Nitrate Urine Bilirubin Prot Sulfosalicylic Acd Urine Urobilinogen Ur Leukocyte Esterase Urine RBC Urine WBC Ur Squamous Epith Cells Amorphous Sediment Urine Bacteria Urine Mucus Blood Type Rho(D) Type Antibody Screen Crossmatch Cardiac Studies: No Data to Display
--- NOTE | 2019-11-15 13:43 | P.HPUD_ITS ---
Surgery/Procedure H&P Update DATE OF PROCEDURE: November 15, 2019 DATE H&P PERFORMED: 11/14/19 H&P UPDATE INFORMATION: Changes to prior documentation as noted here (I discussed the patient's alleged history of deep venous thromboses with the daughter. It sounds as if this was more likely superficial phlebitis. No long- term anticoagulation was rendered. Patient states as well as the daughter that she was never on anticoagulation other than Plavix.) PREOP DIAGNOSIS: Right femoral neck fracture PLANNED PROCEDURE: Operation Date: 11/15/19 12:25 Proposed Procedures p Hemiarthroplasty Hip(Right) - Waldo Dale MD
--- NOTE | 2019-11-15 13:43 | PC.NURSE ---
Patient in surgery at this time.
[2019-11-15] MEDS: fentaNYL 50 mcg/mL INJ 2mL IVP (14:43)
[2019-11-15] MEDS: sodium chloride 0.9% 1,000 ML 30 ML IV (16:02)
[2019-11-15] MEDS: clindamycin 600 MG/50 ML PREMIX 100 MG IV (16:20)
[2019-11-15] MEDS: tranexamic acid 1,000 mg/10mL SDV 1000 MG IRRIGATION (17:03)
--- NOTE | 2019-11-15 17:32 | PC.NURSE ---
spoke with family and gave update (loyda)
--- NOTE | 2019-11-15 17:58 | P.OP_ITS ---
Operative Report Date of procedure: November 15, 2019 Pre-op Diagnosis: Right femoral neck fracture Post-op diagnosis: same Post-op Findings: Displaced fracture right femoral neck Procedure Done: Right bipolar arthroplasty Pathology: none sent Surgeon: Waldo Dale Anesthesia: General Estimated blood loss (mL): 300 Complications: None Findings: Displaced fracture right femoral neck Condition: stable Disposition: PACU Procedure: The patient was taken to the operating room and a general l anesthesia was provided by the anesthesia service. They were given 600 mg of clindamycin. and positioned in the lateral position with the hip exposed. A 10 cm long incision was made over the greater trochanter with a scalpel blade. Dissection was carried down through the fascia leticia to the greater trochanter. The anterior two thirds of gluteus medius and minimus were elevated off the greater trochanter with electrocautery. The capsule was divided T like fashion. The hip was externally rotated and the neck brought up into the wound. An oscillating saw was really used to resect the neck just above the level of the lesser trochanter. The femoral head was removed and the acetabulumt sized to a 44 mm bipolar head. Sequential reaming of the canal was accomplished up to a size 7. The canal was broached to a size 7 and a size 7 Gerald [employer] DIETRICH stem was press fit into place. A trial reduction with a -3 mm neck provided excellent stability. The final head and neck were placed and the hip reduced. The anterior capsule were reapproximated with 1 Ethibond. The gluteus medius and minimus were repaired through the greater trochanter with 5 Ethibond and reinforced with 1 Ethibond. The fascia leticia was closed with 1 Ethibond. The subcutaneous tissues were closed with 2-0 Vicryl. The skin was closed with skin lamont. Sterile dressings were applied. The patient was placed in abduction p illow and taken recovery room in stable condition.
--- NOTE | 2019-11-15 18:01 | SUR.PHASEI ---
8252 PATIENT TO PACU FROM OR. RR EVEN AND UNLABORED. NO DISTRESS. SPO2 100% ON SIMPLE MASK AT 8L. DRESSING TO RIGHT HIP, CDI. ABD PILLOW IN PLACE. RIGHT PEDAL PULSE, MARKED AND STRONG. SNEED CATH DRAINING.
--- NOTE | 2019-11-15 18:08 | XRR_ITS ---
PROCEDURE INFORMATION: Exam: XR Right Hip with Pelvis when Performed Exam date and time: 11/15/2019 6:27 PM Age: 78 years old Clinical indication: Device placement; Other: Right bipolar arthroplasty; Prior surgery; Surgery date: Post-operative (0-2 days) TECHNIQUE: Imaging protocol: XR Right hip with pelvis when performed. Views: 1 view. COMPARISON: CR XR hip RT 2-3V wo/w pel* [id number] 11/13/2019 4:12 PM FINDINGS: Bones/joints: Osteopenia. Right hip arthroplasty with acetabular and femoral components. Soft tissues: Soft tissue gas laterally likely postoperative with superficial skin. Vasculature: Soft tissue vascular calcification. XR/XR hip RT 1V wo/w pel [id number] IMPRESSION: Right hip arthroplasty.
--- NOTE | 2019-11-15 18:35 | SUR.PHASEI ---
1825 PATIENT TO MED SURG. RR EVEN AND UNLABORED. PWD. DRESSING TO RIGHT HIP, SMALL AMOUNT OF DRAINAGE CIRCLED. ABD PILLOW IN PLACE WITH FIRST ICE.
[2019-11-15] MEDS: sodium chloride 0.9% 1,000 ML 75 ML IV (18:45)
[2019-11-15] MEDS: HYDROcodone-acetaminophen 5-325 mg Tablet 1 TAB PO (20:06)
[2019-11-15] MEDS: diphenhydrAMINE 25 mg Capsule 50 MG PO (21:41)
[2019-11-15] MEDS: dilTIAZem 60 mg Tablet PO (21:41)
[2019-11-15] MEDS: chlorhexidine gluconate 0.12% Btl 473 mL 30 ML MUCOUS MEM (21:41)
[2019-11-16] VITALS (8 sets, daily range): BP systolic 102–147; BP diastolic 55–71; PULSE 64–93; RESP 16–19; TEMP 36.5–37.9; O2SAT 90–97
[2019-11-16] MEDS: clindamycin 900 MG/50 ML PREMIX 100 MG IV ×2 (00:56→07:59)
[2019-11-16] MEDS: sodium chloride 0.9% 1,000 ML 75 ML IV ×2 (00:56→21:09)
[2019-11-16] MEDS: morphine 4 mg/mL SDV 1 mL 2 MG IVP ×2 (03:16→16:19)
[2019-11-16 04:27] LABS: Basophils % 0.3 %; Eosinophils # 0.1 10^3/uL (0.0-0.8); Eosinophils % 1.4 %; Hematocrit 24.9 % (37.0-47.0); Hemoglobin 7.7 g/dL (11.5-15.3); Lymphocytes # 0.7 10^3/uL (0.8-4.8); Lymphocytes % 10.2 %; Mean Corpuscular HGB Conc 30.9 g/dL (30.0-36.0); Mean Corpuscular Volume 96.9 fL (81-99); Mean Platelet Volume 10.1 fL (7.4-10.4); Monocytes # 0.8 10^3/uL (0.2-0.9); Monocytes % 10.8 %; Neutrophils # 5.5 10^3/uL (1.8-7.7); Neutrophils % 76.6 %; Nucleated Red Blood Cells % 0 %; Platelet Count 269 10^3/cmm (130-400); Red Blood Count 2.57 10^6/uL (4.1-5.3); Red Cell Distribution Width 15.6 % (12.1-15.1); White Blood Count 7.2 10^3/uL (4.0-10.0)
[2019-11-16 05:11] LABS: Anion Gap 11.1 (5-19); Blood Urea Nitrogen 7 mg/dL (8-23); Carbon Dioxide 23 mmol/L (22-29); Chloride 103 mmol/L (98-107); Glucose 113 mg/dL (65-115); Osmolality Calculated 273 mOsm/kg (285-295); Potassium 4.1 mmol/L (3.5-5.1); Sodium 133 mmol/L (136-145)
--- NOTE | 2019-11-16 07:01 | PM.PN ---
Subjective Subjective: Interval history: Overall she seems to be doing well. Done well postoperatively. No chest pain or shortness of breath. No fevers. Pain seems well controlled at this time. Medications: Reviewed: Yes Vitals/I&O/Wt Last Vital Signs Temp 98.8 F 11/16/19 04:54 Pulse 75 11/16/19 04:54 Resp 18 11/16/19 04:54 BP 134/71 11/16/19 04:54 Pulse Ox 97 11/16/19 04:54 11/15/19 11/16/19 11/16/19 22:59 06:59 14:59 Intake Total 1160 / 1623.75 463.75 / 1623.75 Output Total 800 / 800 Balance 360 / 823.75 463.75 / 823.75 Physical Exam Narrative: EXAM NARRATIVE: General: No acute distress, Alert. Well nourished. Heart: Regular rate and rhythm. No murmurs, rubs or gallops. Normal capillary refill. Lungs: Clear to auscultation. No wheezes, rhonchi or rales. Abdomen: Positive bowel sounds. Non-tender, non-distended. No hepatosplenomegaly. No gaurding. Extremities: No clubbing, cyanosis, or edema. Negative Eddie's Urinary Catheter Management^: : Cath Placed During This Visit: yes Reason for Continuing Indwelling Catheter: Chronic Indwelling Urinary Catheter on Admission Urinary Catheter Date of Insertion: 11/13/19 Urinary Catheter Time of Insertion: 13:31 Data : 11/16/19 03:05 11/16/19 03:05 A&P Assessment and plan (1) Closed fracture of neck of right femur: -Patient is doing well postop right bipolar arthroplasty on 11/15/2019 -Appreciate orthopedics consultation and continued care and management.. Status: Acute (2) Atrial fibrillation: Stable. She is in sinus rhythm at this time. Status: Acute (3) Anemia: This is from previous GI bleeds. Overall stable. Continue to monitor. 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 She has been set up as an outpatient with oncology for radiation therapy. -She currently has a PEG tube for feeding we will have dietary help manage this. Status: Acute Attestations Medical Necessity Statement*: Patient is a 78-year-old female status post right hip arthroplasty after a fall and fracture requiring continued inpatient monitoring and treatment. 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
[2019-11-16] MEDS: HYDROcodone-acetaminophen 5-325 mg Tablet 1 TAB PO ×3 (07:53→21:07)
[2019-11-16] MEDS: dilTIAZem 60 mg Tablet PO ×3 (09:32→21:11)
[2019-11-16] MEDS: iron polysaccharide complex 150 mg Capsule PO ×2 (09:32→15:55)
[2019-11-16] MEDS: cholecalciferol (vitamin D3) 1,000 unit Tablet 1000 UNIT PO (09:32)
[2019-11-16] MEDS: hydroCHLOROthiazide 25 mg Tablet 12.5 MG PO (09:32)
[2019-11-16] MEDS: calcium carbonate 500 mg Chew Tablet 1000 MG PO ×2 (09:32→15:55)
[2019-11-16] MEDS: sennosides-docusate Tablet 2 TAB PO ×2 (09:33→15:55)
[2019-11-16] MEDS: clopidogrel 75 mg Tablet PO (09:33)
[2019-11-16] MEDS: multivitamin therapeutic Tablet 1 TAB PO (09:33)
[2019-11-16] MEDS: sertraline 100 mg Tablet PO (09:33)
[2019-11-16] MEDS: carvedilol 6.25 mg Tablet PO ×2 (09:33→15:55)
[2019-11-16] MEDS: chlorhexidine gluconate 0.12% Btl 473 mL 30 ML MUCOUS MEM ×4 (09:34→21:09)
--- NOTE | 2019-11-16 10:31 | PC.SOCIAL ---
IM follow up explained, initialed dated and timed. copy provided to patient. She verbalized understanding no questions.
--- NOTE | 2019-11-16 17:54 | PM.PN ---
Subjective Subjective: Interval history: Patient awake in bed. Complains of right hip pain requesting pain medication Vitals/I&O/Wt Last Vital Signs Temp 97.7 F 11/16/19 15:42 Pulse 86 11/16/19 15:42 Resp 16 11/16/19 15:42 BP 124/56 11/16/19 15:42 Pulse Ox 92 11/16/19 15:42 11/16/19 11/16/19 11/16/19 06:59 14:59 22:59 Intake Total 513.75 / 1673.75 1100 / 1100 Balance 513.75 / 873.75 1100 / 1100 Physical Exam Narrative: EXAM NARRATIVE: Right hip dressing clean and dry. Minimal swelling right thigh Urinary Catheter Management^: : Cath Placed During This Visit: yes Reason for Continuing Indwelling Catheter: Chronic Indwelling Urinary Catheter on Admission Urinary Catheter Date of Insertion: 11/13/19 Urinary Catheter Time of Insertion: 13:31 Data : 11/16/19 03:05 11/16/19 03:05 A&P Assessment and plan (1) Postoperative state: We will begin to mobilize patient as tolerated. Daughter would like a discharge home but I am not certain this will be possible. We will continue to follow with admitting team Status: Acute Attestations Medical Necessity Statement*: As per medicine Coding Level of Care Code Acute Director Of Environmental Services for Surya Gonzalez Diagnoses Postoperative state Z98.890
[2019-11-16] MEDS: diphenhydrAMINE 25 mg Capsule 50 MG PO (21:07)
[2019-11-16] MEDS: enoxaparin 30 mg/0.3 mL Syringe SUBCUT (21:08)
[2019-11-17] VITALS (8 sets, daily range): BP systolic 107–137; BP diastolic 50–72; PULSE 71–77; RESP 13–20; TEMP 36.1–37.3; O2SAT 90–98
[2019-11-17] MEDS: clindamycin 150 mg Capsule 300 MG PO ×5 (01:50→20:20)
[2019-11-17 05:25] LABS: Basophils % 0.1 %; Eosinophils % 0.4 %; Hematocrit 21.5 % (37.0-47.0); Hemoglobin 6.9 g/dL (11.5-15.3); Lymphocytes # 0.8 10^3/uL (0.8-4.8); Lymphocytes % 10.8 %; Mean Corpuscular HGB Conc 32.1 g/dL (30.0-36.0); Mean Corpuscular Hemoglobin 30.1 pg (28.0-34.0); Mean Corpuscular Volume 93.9 fL (81-99); Mean Platelet Volume 10.5 fL (7.4-10.4); Monocytes # 1.1 10^3/uL (0.2-0.9); Monocytes % 14.5 %; Neutrophils # 5.6 10^3/uL (1.8-7.7); Neutrophils % 73.8 %; Nucleated Red Blood Cells % 0 %; Platelet Count 216 10^3/cmm (130-400); Red Blood Count 2.29 10^6/uL (4.1-5.3); Red Cell Distribution Width 14.7 % (12.1-15.1); White Blood Count 7.5 10^3/uL (4.0-10.0)
[2019-11-17] MEDS: HYDROcodone-acetaminophen 5-325 mg Tablet 1 TAB PO ×3 (05:35→23:41)
[2019-11-17 05:50] LABS: Alanine Aminotransferase 13 U/L (0-33); Albumin Level 2.7 g/dL (3.5-5.2); Alkaline Phosphatase 83 IU/L (35-105); Aspartate Amino Transferase 20 U/L (0-32); Blood Urea Nitrogen 9 mg/dL (8-23); Calcium 8.2 mg/dL (8.5-10.5); Carbon Dioxide 24 mmol/L (22-29); Chloride 97 mmol/L (98-107); Globulin 2.6 g/dL (1.3-4.6); Glucose 107 mg/dL (65-115); Osmolality Calculated 266 mOsm/kg (285-295); Sodium 130 mmol/L (136-145); Total Bilirubin 0.6 mg/dL (0.15-1.2); Total Protein 5.3 g/dL (6.6-8.7)
[2019-11-17] MEDS: iron polysaccharide complex 150 mg Capsule PO ×2 (07:57→19:25)
[2019-11-17] MEDS: dilTIAZem 60 mg Tablet PO ×3 (07:57→20:16)
[2019-11-17] MEDS: cholecalciferol (vitamin D3) 1,000 unit Tablet 1000 UNIT PO (07:57)
[2019-11-17] MEDS: sennosides-docusate Tablet 2 TAB PO ×2 (07:57→19:25)
[2019-11-17] MEDS: calcium carbonate 500 mg Chew Tablet 1000 MG PO ×2 (07:57→19:25)
[2019-11-17] MEDS: multivitamin therapeutic Tablet 1 TAB PO (07:58)
[2019-11-17] MEDS: hydroCHLOROthiazide 25 mg Tablet 12.5 MG PO (07:58)
[2019-11-17] MEDS: clopidogrel 75 mg Tablet PO (07:58)
[2019-11-17] MEDS: carvedilol 6.25 mg Tablet PO ×2 (07:58→19:26)
[2019-11-17] MEDS: sertraline 100 mg Tablet PO (07:58)
[2019-11-17] MEDS: chlorhexidine gluconate 0.12% Btl 473 mL 30 ML MUCOUS MEM ×4 (07:59→20:30)
[2019-11-17] MEDS: potassium chloride premix 40 MEQ/100 ML PREMIX 25 MEQ IV (11:50)
[2019-11-17] MEDS: sodium chloride 0.9% 1,000 ML 75 ML IV ×2 (11:58→22:56)
--- NOTE | 2019-11-17 19:03 | PC.OT ---
OT note: Hold due to low hemoglobin. Will attempt as able.
--- NOTE | 2019-11-17 19:14 | PM.PN ---
Subjective Subjective: Interval history: Patient is doing well this morning. She is up to the commode this morning. Overall pain is doing well. Hemoglobin is down requiring a transfusion today. No fevers or chills. No chest pain or shortness of breath. Medications: Reviewed: Yes Vitals/I&O/Wt Last Vital Signs Temp 97.6 F 11/17/19 15:37 Pulse 71 11/17/19 15:37 Resp 18 11/17/19 15:37 BP 113/54 11/17/19 15:37 Pulse Ox 98 11/17/19 15:37 11/17/19 11/17/19 11/17/19 06:59 14:59 22:59 Intake Total 1620 / 1620 0 / 1620 Balance 1620 / 1620 0 / 1620 Physical Exam Narrative: EXAM NARRATIVE: General: No acute distress, Alert. Well nourished. Heart: Regular rate and rhythm. No murmurs, rubs or gallops. Normal capillary refill. Lungs: Clear to auscultation. No wheezes, rhonchi or rales. Abdomen: Positive bowel sounds. Non-tender, non-distended. No hepatosplenomegaly. No gaurding. Extremities: No clubbing, cyanosis, or edema. Negative Eddie's Urinary Catheter Management^: : Cath Placed During This Visit: yes, but has since been removed by the nurse Reason for Continuing Indwelling Catheter: Decision to DC Catheter Urinary Catheter Date of Insertion: 11/13/19 Urinary Catheter Time of Insertion: 13:31 Date Urinary Catheter Removed: 11/16/19 Time Urinary Catheter Discontinued: 06:30 Data : 11/18/19 03:46 11/18/19 03:46 A&P Assessment and plan (1) Closed fracture of neck of right femur: -Patient is doing well postop right bipolar arthroplasty on 11/15/2019 -Appreciate orthopedics consultation and continued care and management.. Status: Acute (2) Atrial fibrillation: Stable. She is in sinus rhythm at this time. Status: Acute (3) Anemia: This is from previous GI bleeds. This is dropped as expected from surgery. Will transfuse 1 unit today. Overall stable. Continue to monitor. 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 She has been set up as an outpatient with oncology for radiation therapy. -She currently has a PEG tube for feeding we will have dietary help manage this. Status: Acute (5) Hypokalemia: Will replace today. Status: Acute Attestations Medical Necessity Statement*: Patient is 70-year-old female with status post hip replacement requiring normal postoperative care. Coding Level of Care Code Acute Dispensing Audiologist for [facility] Fwd Diagnoses Closed fracture of neck of right femur S72.001A Atrial fibrillation I48.91 Anemia D64.9 Squamous cell carcinoma of pharynx C14.0 Hypokalemia E87.6
--- NOTE | 2019-11-17 19:22 | P.PN_ITS ---
Subjective Subjective: Interval history: Patient states pain is much better. Nursing describes some bleeding in dressing. Vitals/I&O/Wt Last Vital Signs Temp 97.6 F 11/17/19 15:37 Pulse 71 11/17/19 15:37 Resp 18 11/17/19 15:37 BP 113/54 11/17/19 15:37 Pulse Ox 98 11/17/19 15:37 11/17/19 11/17/19 11/17/19 06:59 14:59 22:59 Intake Total 1620 / 1620 0 / 1620 Balance 1620 / 1620 0 / 1620 Physical Exam Narrative: EXAM NARRATIVE: Right hip dressing changed by nursing and now clean and dry. Minimal swelling right thigh Urinary Catheter Management^: : Cath Placed During This Visit: yes, but has since been removed by the nurse Reason for Continuing Indwelling Catheter: Decision to DC Catheter Urinary Catheter Date of Insertion: 11/13/19 Urinary Catheter Time of Insertion: 13:31 Date Urinary Catheter Removed: 11/16/19 Time Urinary Catheter Discontinued: 06:30 Data : 11/17/19 04:20 11/17/19 04:20 A&P Assessment and plan (1) Postoperative state: Patient doing well after surgery. Pain adequately controlled. Okay for discharge to half-way. Will be weightbearing as tolerated. We will keep on Lovenox for DVT prophylaxis for 10 days. We will follow-up in my clinic in 2 weeks Status: Acute Attestations Medical Necessity Statement*: As per medicine Coding Level of Care Code Acute Frozen Food Department Manager for [facility] Gonzalez Diagnoses Postoperative state Z98.890
[2019-11-17] MEDS: mupirocin oint 22 gm 1 APPLIC NASAL (19:26)
[2019-11-17] MEDS: diphenhydrAMINE 25 mg Capsule 50 MG PO (20:20)
[2019-11-18 04:00] VITALS: BP 131/62; PULSE 66; RESP 14; TEMP 36.1; O2SAT 99
[2019-11-18 04:08] LABS: Basophils % 0.1 %; Eosinophils # 0.1 10^3/uL (0.0-0.8); Eosinophils % 0.9 %; Hematocrit 23.9 % (37.0-47.0); Hemoglobin 7.6 g/dL (11.5-15.3); Lymphocytes # 0.9 10^3/uL (0.8-4.8); Lymphocytes % 12.4 %; Mean Corpuscular HGB Conc 31.8 g/dL (30.0-36.0); Mean Corpuscular Hemoglobin 29.3 pg (28.0-34.0); Mean Corpuscular Volume 92.3 fL (81-99); Mean Platelet Volume 10.2 fL (7.4-10.4); Monocytes # 0.9 10^3/uL (0.2-0.9); Monocytes % 13.3 %; Neutrophils # 4.97 10^3/uL (1.8-7.7); Neutrophils % 72.9 %; Nucleated Red Blood Cells % 0 %; Platelet Count 233 10^3/cmm (130-400); Red Blood Count 2.59 10^6/uL (4.1-5.3); Red Cell Distribution Width 15.2 % (12.1-15.1); White Blood Count 6.8 10^3/uL (4.0-10.0)
[2019-11-18 04:35] LABS: Alanine Aminotransferase 12 U/L (0-33); Albumin Level 2.5 g/dL (3.5-5.2); Alkaline Phosphatase 77 IU/L (35-105); Anion Gap 11.3 (5-19); Aspartate Amino Transferase 17 U/L (0-32); Blood Urea Nitrogen 9 mg/dL (8-23); Calcium 8.3 mg/dL (8.5-10.5); Carbon Dioxide 25 mmol/L (22-29); Chloride 98 mmol/L (98-107); Globulin 2.9 g/dL (1.3-4.6); Glucose 104 mg/dL (65-115); Osmolality Calculated 268 mOsm/kg (285-295); Potassium 3.3 mmol/L (3.5-5.1); Sodium 131 mmol/L (136-145); Total Bilirubin 0.5 mg/dL (0.15-1.2); Total Protein 5.4 g/dL (6.6-8.7)
[2019-11-18 08:00] VITALS: BP 134/60; PULSE 72; RESP 17; TEMP 36.2; O2SAT 92
[2019-11-18] MEDS: carvedilol 6.25 mg Tablet PO (08:24)
[2019-11-18] MEDS: multivitamin therapeutic Tablet 1 TAB PO (08:24)
[2019-11-18] MEDS: iron polysaccharide complex 150 mg Capsule PO (08:24)
[2019-11-18] MEDS: sennosides-docusate Tablet 2 TAB PO (08:25)
[2019-11-18] MEDS: cholecalciferol (vitamin D3) 1,000 unit Tablet 1000 UNIT PO (08:25)
[2019-11-18] MEDS: clindamycin 150 mg Capsule 300 MG PO ×2 (08:25→13:02)
[2019-11-18] MEDS: hydroCHLOROthiazide 25 mg Tablet 12.5 MG PO (08:25)
[2019-11-18] MEDS: calcium carbonate 500 mg Chew Tablet 1000 MG PO (08:25)
[2019-11-18] MEDS: clopidogrel 75 mg Tablet PO (08:25)
[2019-11-18] MEDS: dilTIAZem 60 mg Tablet PO ×2 (08:29→14:26)
[2019-11-18] MEDS: sertraline 100 mg Tablet PO (08:29)
[2019-11-18] MEDS: mupirocin oint 22 gm 1 APPLIC NASAL (08:29)
[2019-11-18] MEDS: chlorhexidine gluconate 0.12% Btl 473 mL 30 ML MUCOUS MEM (08:30)
--- NOTE | 2019-11-18 09:09 | P.PN_ITS ---
Subjective Subjective: Interval history: Patient up in chair eating breakfast. States pain is better. Planning discharge to SNF today. Vitals/I&O/Wt Last Vital Signs Temp 97.2 F L 11/18/19 08:00 Pulse 72 11/18/19 08:00 Resp 17 11/18/19 08:00 BP 134/60 11/18/19 08:00 Pulse Ox 92 11/18/19 08:00 11/17/19 11/18/19 11/18/19 22:59 06:59 14:59 Intake Total 1542.5 / 3162.5 480 / 3642.5 120 / 120 Output Total 1100 / 1100 Balance 1542.5 / 3162.5 -620 / 2542.5 120 / 120 Physical Exam Narrative: EXAM NARRATIVE: Left hip dressing clean and dry Urinary Catheter Management^: : Cath Placed During This Visit: yes, but has since been removed by the nurse Reason for Continuing Indwelling Catheter: Other Urinary Catheter Date of Insertion: 11/13/19 Urinary Catheter Time of Insertion: 13:31 Date Urinary Catheter Removed: 11/16/19 Time Urinary Catheter Discontinued: 06:30 Data : 11/18/19 03:46 11/18/19 03:46 Micro: Microbiology 11/17/19 18:04 Occult Blood (FIT) - Final Stool Coding Level of Care Code Acute Lay Out Machine Operator for [facility] Gonzalez
--- NOTE | 2019-11-18 09:50 | PC.CHAP ---
Pastoral Care Encounter/Spiritual Assessment Type of Contact [] Declined ambulatory technologist visit [] Patient/Family/Request visit [] Outpatient visit [] Follow-up visit [] Physician referral [] Code/Alert [x] Routine visit [] Staff referral [] Actively dying [] Patient sleeping [] Family support [] [] Out of room [] Palliative care [] [] Receiving care in room [] Pre-surgical visit [] Trauma [] Long length of stay [] ICU visit [] Other: Relational/Emotional Strength [x] Patient feels connected with others/family/visitors/staff [] Distress [] Loneliness/isolation [] Abandonment Spirituality of Patient [x] Person of Joyce [x] Attends Jew of their Joyce [x] Believes in Prayer [x] Reads Bible or Gnosticism materials [] There are Spiritual issues to be addressed Roller Mill Tender Interventions [x] Prayer [x] Active listening [x] Non-anxious presence [x] Spiritual/emotional support [] Crisis/trauma care [] Spiritual counseling [] Bereavement support [] Provided bereavement packet [] Provided Bible/devotional materials [] Provided toy/stuffed animal, coloring book to patient or family member [] Provided Communion [] Anointing/[place] [] Salvation [x] Completed spiritual assessment [] Other: Impact on Illness or Injury [] Angry [] Fearful [] Anxious [] Often cries [] Exhaustion [] Unable to work [] Unable to attend advent [] Unable to walk/stand [] Unable to read [] Unable to drive [] Unable to eat/drink [] Unable to sleep [] Unable to be with family [] Patient intubated [x] Other: Summary Patient is strong in her joyce in [place]. Attends the local [employer] [facility] and is set for short term rehab. Time spent with patient 10 minutes
[2019-11-18] MEDS: HYDROcodone-acetaminophen 5-325 mg Tablet 1 TAB PO (10:40)
--- NOTE | 2019-11-18 11:09 | PC.SOCIAL ---
IMM Update Pg 2 of IMM given and explained to patient who verbalized understanding. Initialed, dated, and timed and placed in chart. Copy left with patient.
[2019-11-18 11:22] VITALS: BP 144/68; PULSE 70; RESP 17; TEMP 36.1; O2SAT 92
--- NOTE | 2019-11-18 13:59 | P.DS_ITS ---
Discharge Providers Date of Admission: 11/13/19 13:32 Date of Discharge: November 18, 2019 Attending Provider at Admission: Sneha Levine MD Attending Provider at Discharge: Richy Murphy MD Primary Care Provider: Richy Murphy MD Diagnoses at Discharge Discharge Diagnosis (1) Closed fracture of neck of right femur: Status: Acute (2) Atrial fibrillation: Status: Acute (3) Anemia: Status: Acute (4) Squamous cell carcinoma of pharynx: Status: Acute (5) Hypokalemia: Status: Acute Reason for Visit Reason for Visit: RIGHT HIP AND FEMUR PAIN /P FALL Hospital Course Discharge Summary: Patient is very nice 70-year-old female who has been hospitalized recently in [place] for a squamous cell in her mouth that required extensive surgery and reconstruction. She had just gotten home from rehab when she fell and fractured her right hip. Patient came to the emergency room had surgical repair of this. She done very well with this postoperatively. Her pain is been well controlled. She had some chronic anemia and did require 1 unit packed red blood cells which brought her hemoglobin back up to 7.7. She is actually feeling quite good. Getting up with physical therapy. We felt she benefit from rehab and patient is being discharged to rehab today. Physical Exam Narrative: EXAM NARRATIVE: General: No acute distress, Alert. Well nourished. Heart: Regular rate and rhythm. No murmurs, rubs or gallops. Normal capillary refill. Lungs: Clear to auscultation. No wheezes, rhonchi or rales. Abdomen: Positive bowel sounds. Non-tender, non-distended. No hepatosplenomegaly. No gaurding. Extremities: No clubbing, cyanosis, or edema. Negative Eddie's Urinary Catheter Management^: : Cath Placed During This Visit: yes, but has since been removed by the nurse Reason for Continuing Indwelling Catheter: Other Urinary Catheter Date of Insertion: 11/13/19 Urinary Catheter Time of Insertion: 13:31 Date Urinary Catheter Removed: 11/16/19 Time Urinary Catheter Discontinued: 06:30 Discharge Data Data Completed and Pending: Completed Studies During Hospitalization Category Date Time Status XR chest 1V damian ble 13120 Stat Exams 11/13/19 13:01 Completed XR hand RT min 3V * [id number] Stat Exams 11/13/19 13:09 Completed XR hip RT 1V wo/w pel [id number] Routine Exams 11/15/19 18:08 Completed XR hip RT 2-3V wo /w pel* [id number] Stat Exams 11/13/19 11:48 Completed XR hip RT 2-3V wo /w pel* [id number] Stat Exams 11/13/19 15:25 Completed Labs from last 24 hours 11/18/19 11/18/19 11/17/19 03:46 03:46 10:09 WBC 6.8 RBC 2.59 L Hgb 7.6 L Hct 23.9 L MCV 92.3 MCH 29.3 MCHC 31.8 RDW 15.2 H Plt Count 233 MPV 10.2 Neut % (Auto) 72.9 Lymph % (Auto) 12.4 [place] % (Auto) 13.3 Eos % (Auto) 0.9 Baso % (Auto) 0.1 Neut # (Auto) 4.97 Lymph # (Auto) 0.9 [place] # (Auto) 0.9 Eos # (Auto) 0.1 Baso # (Auto) 0.0 Nucleated RBC % (a uto) 0 Nucleated RBCs # 0.0 Sodium 131 L Potassium 3.3 L Chloride 98 Carbon Dioxide 25 Anion Gap 11.3 BUN 9 Creatinine 0.3 L Glucose 104 Calculated Osmolal ity 268 L Calcium 8.3 L Total Bilirubin 0.5 AST 17 ALT 12 Alkaline Phosphata se 77 Total Protein 5.4 L Albumin 2.5 L Globulin 2.9 Blood Type O Positive Rho(D) Type Positive Antibody Screen Negative Crossmatch See Detail Vitals: Last Vital Signs Temp 97.0 F L 11/18/19 11:22 Pulse 70 11/18/19 11:22 Resp 17 11/18/19 11:22 BP 144/68 11/18/19 11:22 Pulse Ox 92 11/18/19 11:22 Discharge Plan Discharge Patient Disposition: Xfer SNF Condition: Stable Prescriptions: New Lovenox 40 mg/0.4 mL Syringe 40 mg SUBCUT Q24H 10 Days Qty: 4 RF: 0 hydrocodone-acetaminophen 5-325 mg Tablet 1 tab PO Q4H PRN (Reason: Moderate To Severe Pain) Qty: 30 RF: 0 Continued carvedilol 6.25 mg tablet 6.25 mg PO BID RF: 0 sertraline 100 mg tablet 100 mg PO DAILY RF: 0 clopidogrel 75 mg tablet 75 mg PO DAILY RF: 0 diltiazem HCl 60 mg tablet 60 mg PO TID RF: 0 hydrochlorothiazide 12.5 mg tablet 12.5 mg PO DAILY RF: 0 Benadryl 25 mg Capsule 50 mg PO BEDTIME RF: 0 Discontinued clindamycin HCl 300 mg capsule 300 mg PO QID RF: 0 Discharge Orders: Discharge Order (Routine); Ordered 11/18/19 Ordered By: Richy Murphy Referrals: [facility] [place] [Outside] Waldo Dale MD [Physician] - 1 month Richy Murphy MD [Primary Care Provider] - Discharge Diet: Resume prior tube feeds Discharge Activity: Increase activity as tolerated Activity Restrictions/Additional Instructions: Discontinue lamont on 11/29/2019 right hip May weight-bear as tolerated on right lower extremity -Physical therapy and Occupational Therapy to assess and treat -Discharged to rehab with medical technician assistant as attending physician -Wound care consult for incisional wound under left breast. -Continue tube feeds as she was doing prior to hospitalization. Discharge Attestations Time Spent in Discharge Care*: greater than 30 min Quality Metrics Clinical Quality Measures During this hospital stay, did patient experience: None Coding Level of Care Code Acute Skilled Nursing Facilities Professional for [facility] Fwd Diagnoses Closed fracture of neck of right femur S72.001A Atrial fibrillation I48.91 Anemia D64.9 Squamous cell carcinoma of pharynx C14.0 Hypokalemia E87.6
[2019-11-18 14:02] VITALS: BP 144/68; PULSE 70; RESP 17; TEMP 36.1; O2SAT 92
[2019-11-18 15:48] VITALS: BP 130/60; PULSE 68; RESP 16; TEMP 36.9; O2SAT 94
== END 2019-11-18 16:59 | disposition skilled nursing facility (03) | DRG 956 ==
LOC: ER 13:14 → MEDSURG 14:39
PROVIDERS: Family Medicine; Orthopaedic Surgery; Admitting Provider Student in an Organized Health Care Education/Training Program; PCP Family Medicine; Visit Provider Family Medicine
PROC: 0SRR0JA Replacement of Right Hip Joint, Femoral Surface with Synthetic Substitute, Uncemented, Open Approach (ICD-10-PCS; CPT 27125; principal; 2019-11-15 14:30)
DX: S72.041A Displaced fracture of base of neck of right femur, initial encounter for closed fracture (principal); S32.599A Other specified fracture of unspecified pubis, initial encounter for closed fracture; E87.6 Hypokalemia; I48.91 Unspecified atrial fibrillation; C14.0 Malignant neoplasm of pharynx, unspecified; D64.9 Anemia, unspecified; W19.XXXA Unspecified fall, initial encounter; Z79.02 Long term (current) use of antithrombotics/antiplatelets; Y92.009 Unspecified place in unspecified non-institutional (private) residence as the place of occurrence of the external cause; I25.10 Atherosclerotic heart disease of native coronary artery without angina pectoris; Z86.718 Personal history of other venous thrombosis and embolism; I10 Essential (primary) hypertension
CPT/HCPCS: 12345; 36415; 36430; 51702; 71045; 73130; 73501; 73502; 80048; 80053; 81001; 81003; 82274; 82607; 82746; 83540; 85025; 85610; 86850; 86900; 86920; 93005; 96365; 96372; 96375; 97110; 97116; 97161; 97167; 97530; 97535; 99284; C1776; J0330; J1580; J1650; J2001; J2250; J2270; J2405; J2704; J3010; J3480; J3490; J7030; P9016

== ENCOUNTER 2019-11-25 09:57 | Outpatient (CLI) | payer MEDICARE, OTHER, SELFPAY | END 2019-11-25 09:58 | disposition home or self-care (01) | LOC: WOUND 10:00 | PROVIDERS: PCP Family Medicine; Visit Provider Emergency Medicine | DX: L98.492 Non-pressure chronic ulcer of skin of other sites with fat layer exposed (principal); L53.9 Erythematous condition, unspecified; R52 Pain, unspecified | CPT/HCPCS: 11043; 71260; 87070; 87077; 87176; 87186; 87205; A6446; G0463; Q9967 ==

== ENCOUNTER 2019-11-25 11:30 | Outpatient (CLI) | payer MEDICARE, OTHER, SELFPAY ==
--- NOTE | 2019-11-25 | CT_ITS ---
WS: [id number] CT scan of the chest with IV contrast, additional two-dimensional coronal and sagittal reconstruction was performed. 11/25/2019 Clinical Data: R/O ULCER, PAIN, REDNESS, NON HEALING ULCER Comparison: CT chest, 07/17/2015. DLP: 665.[address] scans at [facility] use at least one of these dose optimization techniques: automat ed exposure control; mA and/or kV adjustment per patient size (includes targeted exams where dose is matched to clinical indication); or iterative reconstruction. Findings: There is a subcutaneous lesion in the left anterior chest wall which contains air and debris and it m easures 0.8 x 8.6 x 14.0 cm in oblique AP, oblique transverse and oblique superior-inferior dimension respectively. No communication with the lung parenchyma is noted. No nodules, masses or effusions are seen. The heart size is enlarged with no pericardial effusion. Th e pulmonary arterial system and thoracic aorta demonstrate no abnormalities or dilatations. No pneumo jameson or pneumothorax is seen. The trachea bifurcates normally into the bronchi. There is no axillary o r significant mediastinal adenopathy. The upper abdomen demonstrates no change from before. Degenerative change of the thoracic vertebral b odies is moderate. CT/CT chest w con* [id number] Impression: 1. Subcutaneous lesion of the left anterior chest wall containing air and debri s which may represent a sterile fluid collection. No definite evidence of absce ss is seen. 2. No acute cardiopulmonary disease is noted, and the subcutaneous lesion does not communicate with the lung parenchyma.
[2019-11-25] MEDS: iohexol 300 mg/mL 100 mL Btl IV (11:53)
== END 2019-11-25 11:31 | disposition home or self-care (01) ==
LOC: RADWPI 11:35
PROVIDERS: Family Provider Family Medicine; PCP Family Medicine; Visit Provider Emergency Medicine
DX: L53.9 Erythematous condition, unspecified (principal); R52 Pain, unspecified
CPT/HCPCS: 71260; Q9967

== ENCOUNTER 2019-12-03 13:24 | Outpatient (CLI) | payer MEDICARE, OTHER, SELFPAY | END 2019-12-03 13:25 | disposition home or self-care (01) | LOC: WOUND 13:25 | PROVIDERS: Family Provider Family Medicine; PCP Family Medicine; Visit Provider Surgery | DX: I96 Gangrene, not elsewhere classified (principal); L98.492 Non-pressure chronic ulcer of skin of other sites with fat layer exposed | CPT/HCPCS: 11042 ==

== ENCOUNTER 2019-12-09 05:12 | Outpatient (CLI) | payer OTHER, SELFPAY ==
[2019-12-09 05:41] LABS: Basophils % 0.4 %; Eosinophils # 0.3 10^3/uL (0.0-0.8); Eosinophils % 5.3 %; Hematocrit 23.7 % (37.0-47.0); Hemoglobin 7.1 g/dL (11.5-15.3); Lymphocytes # 0.9 10^3/uL (0.8-4.8); Lymphocytes % 17.5 %; Mean Corpuscular Hemoglobin 26.7 pg (28.0-34.0); Mean Corpuscular Volume 89.1 fL (81-99); Mean Platelet Volume 9.8 fL (7.4-10.4); Monocytes # 0.8 10^3/uL (0.2-0.9); Monocytes % 14.8 %; Neutrophils # 3.13 10^3/uL (1.8-7.7); Neutrophils % 61.6 %; Nucleated Red Blood Cells % 0 %; Platelet Count 367 10^3/cmm (130-400); Red Blood Count 2.66 10^6/uL (4.1-5.3); Red Cell Distribution Width 15.6 % (12.1-15.1); White Blood Count 5.1 10^3/uL (4.0-10.0)
== END 2019-12-09 05:13 | disposition home or self-care (01) ==
LOC: LAB 05:15
PROVIDERS: Family Provider Family Medicine; PCP Family Medicine; Visit Provider Family Medicine
DX: D64.9 Anemia, unspecified (principal)
CPT/HCPCS: 85025

== ENCOUNTER 2019-12-09 15:11 | Outpatient (CLI) | payer MEDICARE, OTHER, SELFPAY | END 2019-12-09 15:12 | disposition home or self-care (01) | LOC: WOUND 15:16 | PROVIDERS: Family Provider Family Medicine; PCP Family Medicine; Visit Provider Emergency Medicine | DX: T81.89XA Other complications of procedures, not elsewhere classified, initial encounter (principal) | CPT/HCPCS: 11043 ==

== ENCOUNTER → 2019-12-10 06:52 | Day surgery (SDC) | payer OTHER, MEDICARE, SELFPAY ==
[2019-12-10] VITALS (11 sets, daily range): BP systolic 106–136; BP diastolic 35–72; PULSE 67–77; RESP 18–20; TEMP 36.4–36.9; O2SAT 93–97; BMI 20.7
== END ==
PROVIDERS: PCP Family Medicine; Visit Provider Family Medicine
DX: D64.9 Anemia, unspecified (principal)
CPT/HCPCS: 36430; 86850; 86900; 86920; P9016

== ENCOUNTER 2019-12-13 12:16 | Outpatient (CLI) | payer MEDICARE, OTHER, SELFPAY ==
[2019-12-13 12:59] LABS: Basophils % 0.6 %; Eosinophils # 0.2 10^3/uL (0.0-0.8); Eosinophils % 3.3 %; Hematocrit 36.8 % (37.0-47.0); Hemoglobin 11.2 g/dL (11.5-15.3); Lymphocytes # 0.9 10^3/uL (0.8-4.8); Lymphocytes % 14.8 %; Mean Corpuscular HGB Conc 30.4 g/dL (30.0-36.0); Mean Corpuscular Hemoglobin 26.7 pg (28.0-34.0); Mean Corpuscular Volume 87.8 fL (81-99); Mean Platelet Volume 9.4 fL (7.4-10.4); Monocytes # 0.8 10^3/uL (0.2-0.9); Monocytes % 11.9 %; Neutrophils # 4.39 10^3/uL (1.8-7.7); Neutrophils % 69.1 %; Nucleated Red Blood Cells % 0 %; Platelet Count 465 10^3/cmm (130-400); Red Blood Count 4.19 10^6/uL (4.1-5.3); Red Cell Distribution Width 15.4 % (12.1-15.1); White Blood Count 6.4 10^3/uL (4.0-10.0)
== END 2019-12-13 12:17 | disposition home or self-care (01) ==
LOC: LAB 12:20
PROVIDERS: PCP Family Medicine; Visit Provider Family Medicine
DX: D64.9 Anemia, unspecified (principal)
CPT/HCPCS: 85025

== ENCOUNTER → 2019-12-16 10:16 | Outpatient (BNVA) | payer MEDICARE, OTHER, SELFPAY | PROVIDERS: PCP Family Medicine; Visit Provider Orthopaedic Surgery | DX: Z48.89 Encounter for other specified surgical aftercare (principal) | CPT/HCPCS: 73502 ==

== ENCOUNTER 2019-12-20 14:15 | Outpatient (CLI) | payer MEDICARE, OTHER, SELFPAY | END 2019-12-20 14:16 | disposition home or self-care (01) | LOC: WOUND 14:16 | PROVIDERS: PCP Family Medicine; Visit Provider Emergency Medicine | DX: T81.89XA Other complications of procedures, not elsewhere classified, initial encounter (principal) | CPT/HCPCS: 11042 ==

== ENCOUNTER 2019-12-23 13:13 | Outpatient (CLI) | payer MEDICARE, OTHER, SELFPAY ==
--- NOTE | 2019-12-24 15:15 | ONC CON_ITS ---
Dr. Coley New Patient Note Patient: Lian Posada Unit #: [id number]: 1940 Dicatated By: Joao Coley M.D.Date of Visit: Dec 23, 2019 Onc MED New Patient/Consult Referring Physician: Dr. Richy Murphy M.D. Chief Complaint: Gingival cancer. 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 She has previously been treated here for sarcoidosis. She had then presented with pain in the left mandible following a dental extraction in January 2019. It had continued to worsen despite several rounds of antibiotic therapy. By June 2019 she had developed a mass on the left side of the neck. She was seen by Dr. Tobias, and she was noted to have a lesion involving the left lower gingiva. CT of the neck showed a heterogeneously enhancing mass with central necrosis involving the left submandibular space with mass-effect in the anterior aspect of the submandibular gland. Atherosclerotic changes were noted in the carotid bulb bilaterally. FNA biopsy of the gingival lesion showed keratosis with moderate atypia and foci suspicious for well-differentiated invasive squamous cell carcinoma. FNA biopsy of the left neck mass showed necroinflammatory changes with rare cells suspicious for metastatic carcinoma. She was then seen for further management by Dr. Sherry Chaocn in [facility], and she was recommended to undergo definitive surgery. However, her further evaluation with CT angiogram of the neck on 07/14/2019 showed severe stenosis involving the left internal carotid artery, estimated at 80%. Staging PET/CT on 07/23/2019 showed intense uptake at the left floor of the mouth with the osseous involvement of the mandible. There was left submandibular adenopathy with extracapsular extension into the submandibular gland. There was borderline upper abdominal adenopathy without F DG uptake, presumed to be reactive. There was no evidence of distant metastatic disease. She then underwent stenting of the left carotid artery, causing a delay in her definitive surgery. As such, it was opted to give her neoadjuvant chemotherapy with weekly carboplatin and paclitaxel in combination with Erbitux. She was not able to complete the Erbitux because of a hypersensitivity reaction to the test dose, but she did complete 1 cycle of treatment with carboplatin/paclitaxel on 08/12/2019. On 09/01/2019 she underwent segmental mandibulectomy, floor of mouth resection, neck dissection, tracheostomy, and pectoralis flap reconstruction. She also had a PEG tube placed. She tolerated the surgery well. Pathology showed grade 2 squamous cell carcinoma involving the left lower gingiva. The tumor measured 2.5 cm with a 3 mm depth of invasion. There was superficial direct invasion through the cortex of the mandible. There was evidence of cystic metastatic squamous cell carcinoma involving submandibular soft tissue measuring 4.5 cm, presumed to be extranodal. The closest surgical margin was 3 mm. There was involvement in 3/12 lymph nodes, the largest measuring 0.5 cm. Extranodal extension was not identified. Pathologic staging was pT4a, pN2b, M1. Her postoperative course was complicated by delayed healing of her pectoralis wound and by a fall at home resulting in a right femoral neck fracture. She underwent bipolar arthroplasty of the right hip on 11/15/2019. At discharge she initially went to [facility] for further rehabilitation, but she was able to return to her own home last week. At this point she is getting physical therapy at home and she is still getting treatment at wound care. She also will be getting occupational therapy and speech therapy. She is seen for further management of the oral cancer. She is still feeling very fatigued, and at this point she still has very limited activity. Her ECOG score is 3. She also still has limited oral intake, and she is still restricted to liquids and pur???ed foods. She is trying to get by without using the PEG tube, though. Her weight is down 14 pounds compared to her preop weight. She has not had any fever. She has had a few episodes of sweating. She still has some discomfort in her mouth, but she is getting better with swallowing. She does not complain of shortness of breath, cough, or chest pain. She has not been having nausea. She was having constipation with pain medication, but that is better now. She has no complaints with bladder function. She is sometimes achy, but she otherwise is not having joint or bone pain. She does not complain of headache. She does have difficulty with balance. She has had some numbness in her toes. She also has some mild residual neuropathy associated with sarcoidosis. Past Medical History: Her medical history includes anxiety/depression, atrial fibrillation, carotid stenosis, history of diverticulitis, hyperlipidemia, hypertension, peripheral neuropathy, and sarcoidosis. Past Surgical History: She underwent left carotid stent placement on 07/30/2019. She underwent left carlin-mandibulectomy, floor of mouth resection, left neck dissection, tracheostomy, and pectoralis flap reconstruction on 09/01/2019. She also underwent placement of PEG tube. She underwent bipolar right hip arthroplasty on 11/15/2019. Her other surgical/procedural history includes bladder tuck, hysterectomy/bilateral salpingectomy-oophorectomy, left breast biopsy for benign disease, tonsillectomy, and colonoscopy in 2010. Medications: Benadryl Allergy 1 Tablet (of 25 mg) Oral daily, Carvedilol 1 Tablet (of 6.25 mg) Oral daily, Clopidogrel Bisulfate 1 Tablet (of 75 mg) Oral daily, Hydrochlorothiazide 1 (12.5 mg) Tablet Oral daily, Iron 1 Tablet (of 325 (65 fe) mg) Oral daily, Nystatin Suspension Mouth/throat PRN, Pro-Stat 15 mL Liquid Oral b.i.d., Zoloft 1 (100 mg) Tablet Oral daily Allergies: PCN-Anaphylaxsis and Sulfa. Social History: Ms. Posada is and she is retired. She is a non-smoker. She has just occasional alcohol use. Family History: Father with heart disease at age 75. Mother of colon cancer at age 75. A brother had Parkinson's disease. Review Of Symptoms: Constitutional - She is generally feeling okay. She does have activity restrictions related to her recent hip fracture. She can ambulate very short distance with a walker. She has been in a care home from rehab and is now home with her daughter, who is her primary foster care therapist. Her appetite is fair. She can only do pureed foods. Her weight is down 14 lbs. No fever, night sweats, or hot flashes. ECOG score is 3, Eyes - No change in vision, ENMT - She has sinus congestion/drainage. Her mouth still feels very sore from surgeries. She is having some difficulty with eating, but she is able to swallow OK, Hematologic/Lymphatic - She bruises easily, Respiratory - No shortness of breath. No cough. No pleuritic pain or hemoptysis, Cardiovascular - No angina pain. No palpitations, Gastrointestinal - No nausea or vomiting. No heartburn or acid reflux. No diarrhea. She had constipation with pain medication. No blood in the stool or black stools. She has a PEG tube in place, Genitourinary (F) - No dysuria or hematuria. No urinary frequency. No urgency or incontinence, Musculoskeletal - She is sometimes achy. No other joint or bone pain, Integumentary - She has an open wound from her pectoral muscle flap, Neurologic - No headache. She has problems with balance. She has neuropathy in her lower extremities. No other focal neurologic symptoms, Psychiatric - Her anxiety and depression symptoms are adequatley managed with sertraline. No insomnia. Vital Signs: Performed on Dec 23, 2019 14:04: 0, 21.43, 1.56 sq.m, 63.00 in, 96 %, 83 /min, 24 /min, 118/59 mm(hg), 98.6 F, 121.0 lbs (LOW), and Performed on Jul 29, 2014 11:09: 0. Physical Examination: Constitutional - She appears somewhat weak generally, Eyes - Sclerae nonicteric. Conjunctivae clear, ENMT - There is limited mobility of the mouth and tongue. There are no lesions noted in the oral cavity, Neck - There is surgical defect on the left side of the jaw and neck. There is no mass palpable, Hematologic/Lymphatic - No cervical, clavicular, or axillary adenopathy, Respiratory - Lungs are clear with good air movement bilaterally, Cardiovascular - Heart rhythm is regular. There is no murmur, gallop, or rub noted, Chest - There is an open wound in the left chest inferior to the breast, Abdomen - Soft and non-tender. The PEG tube site appears unremarkable. Liver and spleen are not enlarged. There is no abdominal mass or ascites noted and there is no inguinal adenopathy, Back/Spine - No spine or CVA tenderness noted, Extremities - No edema. Pedal pulses are palpable bilaterally, Integumentary - No rashes. No suspicious skin lesions noted, Neurologic - No focal neurologic deficits noted. Impression: 1. 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 2. She was found to have 80% stenosis of the left internal carotid artery requiring stenting of the left carotid artery. 3. Due to surgery being delayed, she began neoadjuvant chemotherapy with weekly Erbitux, carboplatin, and paclitaxel. Treatment was limited to 1 cycle of carboplatin/paclitaxel. Erbitux was not administered due to a hypersensitivity reaction to the test dose. 4. She then underwent segmental mandibulectomy, floor of mouth resection, neck dissection, tracheostomy, and pectoralis flap reconstruction on 09/01/2019. She also underwent placement of PEG tube. 5. Her postoperative course was complicated by traumatic right femoral neck fracture for which she underwent bipolar right hip arthroplasty on 11/15/2019. 6. She also has had delayed healing of her pectoralis incision. Her other medical illnesses include: 7. Hypertension. 8. Hyperlipidemia. 9. Atrial fibrillation. 10. Sarcoidosis. 11. Peripheral neuropathy. 12. History of diverticulitis. 13. Anxiety/depression. Plan: Pathology results were reviewed with the patient and her daughter. She has had a complete surgical resection of her disease, but due to lymph node involvement and metastatic involvement in the left submandibular soft tissue, she has at significant risk for both local and systemic recurrence. She would ordinarily be recommended to undergo chemoradiation. However, in view complicated postoperative recovery and marginal performance status, I think it would be better to avoid the potential toxicities associated with chemotherapy and limit her postoperative treatment to radiation only. I will arrange for her to see the radiation oncologist next week. Signed By: Joao Coley M.D. <<Signature on File>>
== END 2019-12-23 13:14 | disposition home or self-care (01) ==
LOC: ONCMED 13:20
PROVIDERS: PCP Family Medicine; Visit Provider Internal Medicine Medical Oncology
DX: C03.1 Malignant neoplasm of lower gum (principal); C79.89 Secondary malignant neoplasm of other specified sites; I65.22 Occlusion and stenosis of left carotid artery; I10 Essential (primary) hypertension; E78.5 Hyperlipidemia, unspecified; I48.91 Unspecified atrial fibrillation; D86.89 Sarcoidosis of other sites; K57.92 Diverticulitis of intestine, part unspecified, without perforation or abscess without bleeding; F41.8 Other specified anxiety disorders
CPT/HCPCS: 99205

== ENCOUNTER 2019-12-27 13:20 | Outpatient (CLI) | payer MEDICARE, OTHER, SELFPAY | END 2019-12-27 13:21 | disposition home or self-care (01) | LOC: WOUND 13:22 | PROVIDERS: PCP Family Medicine; Visit Provider Emergency Medicine | DX: T81.89XA Other complications of procedures, not elsewhere classified, initial encounter (principal) | CPT/HCPCS: 11042 ==

== ENCOUNTER 2019-12-28 09:09 | Outpatient (RCR) | payer MEDICARE, OTHER, SELFPAY | END 2020-01-10 23:59 | disposition home or self-care (01) | LOC: SST 09:09 | PROVIDERS: PCP Family Medicine; Referring Provider Family Medicine; Visit Provider Family Medicine | DX: C14.0 Malignant neoplasm of pharynx, unspecified (principal); R13.10 Dysphagia, unspecified; R47.1 Dysarthria and anarthria; Z93.1 Gastrostomy status | CPT/HCPCS: 92507; 92523; 92610 ==

== ENCOUNTER 2020-01-03 13:18 | Outpatient (CLI) | payer MEDICARE, OTHER, SELFPAY | END 2020-01-03 13:19 | disposition home or self-care (01) | PROVIDERS: PCP Family Medicine; Visit Provider Emergency Medicine | DX: T81.89XA Other complications of procedures, not elsewhere classified, initial encounter (principal) | CPT/HCPCS: 11042 ==

== ENCOUNTER 2020-01-03 14:32 | Outpatient (CLI) | payer MEDICARE, OTHER, SELFPAY ==
[2020-01-03 16:13] LABS: Basophils % 0.4 %; Eosinophils # 0.3 10^3/uL (0.0-0.8); Eosinophils % 4.6 %; Hematocrit 38.8 % (37.0-47.0); Hemoglobin 11.9 g/dL (11.5-15.3); Lymphocytes # 1.2 10^3/uL (0.8-4.8); Lymphocytes % 16.7 %; Mean Corpuscular HGB Conc 30.7 g/dL (30.0-36.0); Mean Corpuscular Hemoglobin 26.2 pg (28.0-34.0); Mean Corpuscular Volume 85.3 fL (81-99); Mean Platelet Volume 9.8 fL (7.4-10.4); Monocytes # 0.7 10^3/uL (0.2-0.9); Monocytes % 10.2 %; Neutrophils # 4.87 10^3/uL (1.8-7.7); Nucleated Red Blood Cells % 0 %; Platelet Count 373 10^3/cmm (130-400); Red Blood Count 4.55 10^6/uL (4.1-5.3); Red Cell Distribution Width 14.8 % (12.1-15.1); White Blood Count 7.2 10^3/uL (4.0-10.0)
[2020-01-03 16:50] LABS: Alanine Aminotransferase 20 U/L (0-33); Albumin Level 3.8 g/dL (3.5-5.2); Alkaline Phosphatase 158 IU/L (35-105); Anion Gap 14.3 (5-19); Aspartate Amino Transferase 24 U/L (0-32); Blood Urea Nitrogen 24 mg/dL (8-23); Calcium 9.3 mg/dL (8.5-10.5); Carbon Dioxide 28 mmol/L (22-29); Chloride 99 mmol/L (98-107); Globulin 3.9 g/dL (1.3-4.6); Glucose 102 mg/dL (65-115); Osmolality Calculated 281 mOsm/kg (285-295); Potassium 4.3 mmol/L (3.5-5.1); Prealbumin 14.9 mg/dL (20-40); Sodium 137 mmol/L (136-145); Total Bilirubin 0.4 mg/dL (0.15-1.2); Total Protein 7.7 g/dL (6.6-8.7)
--- NOTE | 2020-01-05 20:19 | N.ONRAD NP_ITS ---
Radiation Oncology New Patient Visit Patient: Lian Posada MR#: [id number] : 1940> Age: 79> Sex: Female> Dictated by: Dr. Zackary Hughes Date of Service: 01/03/2020 Referring Physician(s) : Dr. Coley Diagnosis: pT4a pN2b M1 squamous cell carcinoma of the left lower gingiva. History of Present Illness: The patient is a 78-year-old female who presented with progressive oral cavity pain despite several courses of antibiotics after dental extraction in January 2019. In June 2019, the patient presented with a left submandibular mass and a subsequent CT of the neck revealed an enhancing mass with central necrosis involving the left submandibular space with mass-effect on the left submandibular gland. A subsequent fine-needle aspiration of the left neck mass (06/25/[address] Tobias) revealed necroinflammatory changes with rare cells suspicious for metastatic carcinoma. The patient was initially scheduled for definitive surgery, yet after a CT angiogram of the neck revealed severe stenosis involving the left internal carotid artery, treatment plans were delayed to allow for stenting of the left carotid artery. A PET/CT (07/23/2019) revealed a 3.4 x 2.6 cm hypermetabolic focus in the left lower oral cavity with erosion of adjacent mandible, a hypermetabolic left level 1B lymph node with central necrosis measuring 3.3 cm with radiographic concern for probable extranodal invasion into the adjacent anterior belly of the digastric muscle and left submandibular gland, a smaller adjacent 6 mm node without definite FDG uptake, right paratracheal lymph nodes measuring 1.4 cm without FDG uptake (presumed to be reactive), portacaval nodes measuring 2.6 x 0.9 cm without FDG avidity, and retroperitoneal nodes measuring 1.3 cm without FDG avidity. Given the delay in her planned definitive surgery, she was given neoadjuvant chemotherapy with weekly carboplatin and paclitaxel in combination with Erbitux. The patient was unable to complete Erbitux secondary to a test dose hypersensitivity reaction, but she was able to complete 1 cycle of carbotaxol (08/12/2019). On 09/01/2019 she underwent left segmental mandibulectomy, left floor of mouth resection, left neck dissection of levels 1A, left II-IV, left myocutaneous pectoralis major pedicle flap to mandibulectomy and floor of mouth repair, complex tissue closure of the neck spanning a 10 x 12 area, and tracheostomy (Dr. Ashley at [facility] in [facility]). Pathology revealed a 2.5 cm unifocal mass of grade 2 squamous cell carcinoma of the left oral gingiva. The tumor invaded 3 mm deep, and there was superficial direct invasion through the cortex of the mandible. Furthermore, there was cystic metastatic squamous cell carcinoma of the submandibular soft tissue measuring 4.5 cm. There were no definite features to suggest origin in/replacement of a lymph node (extranodal). Margins were negative by 3 mm, 3 out of 12 lymph nodes were positive, the largest metastatic deposit measured 0.5 cm, the resected submandibular salivary gland was without pathologic abnormality, there was no lymphoid tissue in level 1A, and there was no evidence of malignancy in the left posterior floor of mouth mucosa, left anterior floor of mouth, left buccal mucosa, and left retromolar trigone. Pathologic staging was pT4a, pN2b, M1. Unfortunately, there were wound healing complications and on 09/10/2019, the patient underwent debridement and irrigation of intraoral wound and neck wound, removal of reconstructive plate, drain placement, closure of intraoral wound and complex closure of the neck (Dr. Razo). To complicate her postoperative course further, the patient experienced a fall at home resulting in a right femoral neck fracture and was thus subsequently treated with arthroplasty of the right hip (11/15/2019). This was followed by further rehabilitation. The patient is now seen in consultation to complete adjuvant radiation therapy for management of her oral cavity cancer. She continues to use her PEG tube, oral intake is limited to thick liquids and she reports no shortness of breath, oral cavity pain, or new lumps or bumps in her neck. Current Medications: Benadryl Allergy, carvedilol, clopidogrel Bisulfate, folic Acid, hydrochlorothiazide, iron, nystatin, omeprazole, predniSONE, pro-Stat, zoloft. Allergies: Sulfa and PCN-Anaphylaxsis. Medical History: - Anxiety/depression, - atrial fibrillation, - carotid stenosis, - history of diverticulitis, - hyperlipidemia, - hypertension, - peripheral neuropathy, - sarcoidosis. No history of collagen vascular disease. No previous radiation therapy. Surgical History: Bipolar right hip arthroplasty on 11/15/2019, bladder tuck, hysterectomy/bilateral salpingectomy-oophorectomy, left breast biopsy for benign disease, left carotid stent on 07/30/2019, left hemimandibulectomy, floor of mouth resection, neck dissection, and reconstruction on 09/01/2019, peg tube placement, tonsillectomy and tracheostomy on 09/01/2019. Family History: Father is at age 75 having experienced coronary artery disease. Mother is at age 75 having experienced Cancer history consists of cancer. Father with heart disease at age 75. Mother of colon cancer at age 75. A brother had Parkinson's disease. Social History: Never smoked. Drinks occasionally. Current Complaints / Review of Systems: Constitutional - Complains of moderate fatigue. Complains of night sweats which occur occasionally. Complains of change in weight in which she has lost about 20 lbs. since last year. Denies lack of appetite and fever. Eyes - Denies blurred vision. ENMT - Complains of dysphagia. Complains of ear pain on the left side. Denies mouth dryness, stomatitis and altered taste. Neck - Denies neck pain. Integumentary - Denies rash. Breasts - Denies pain. Cardiovascular - Complains of infrequent arrhythmias had 2 espisodes of A-Fib while in the hospital. Denies chest pain and edema. Respiratory - Complains of cough related to sinus drainage. Complains of dyspnea associated with normal activity. Denies hemoptysis, hiccoughs and wheezing. Gastrointestinal - Complains of occasional constipation. Denies abdominal pain, diarrhea, heartburn / dyspepsia, nausea and vomiting. Genitourinary (F) - Denies dysuria, frequency and urgency. Musculoskeletal - Complains of joint pain in the lower back / pelvic area. Neurologic - Complains of intermittent dizziness that occurs upon sitting to standing. Denies headaches. Endocrine - Denies diabetes and thyroid disease. Hematologic/Lymphatic - Denies tender or enlarged lymph nodes.. Vital Signs: Performed on 01/03/2020 3:58 PM BMI - 21.505 kg/m2, Height - 63.00 in, Weight - 121.4 lbs, Temperature - 98.8 f, Pulse - 81, Respiration - 20, O2 Sat - 96 %, Pain - 2 and BP - 123/ 71 mm(hg). Physical Exam: GENERAL:??? The patient is alert, and in no acute distress. HEENT:??? Head is normocephalic. The patient has an obvious defect along her left oral cavity, her tongue protrudes leftward, and there is no palpable abnormality in the oral cavity concerning for malignancy. External ocular movements are intact. Sclera and conjunctivae are non erythematous. NECK:??? Trachea is midline, and she has a well-healed tracheostomy scar.??? Thyroid is not enlarged by palpation.??? LYMPH NODES:??? There is no submandibular, cervical or supraclavicular lymphadenopathy bilaterally. LUNGS:??? Clear to auscultation bilaterally. Respiratory movement is unlabored. HEART:??? Regular rate and rhythm. EXTREMITIES:??? No deformities. NEUROLOGIC:??? Gait and station are normal.??? The patient is well coordinated and strength is equal bilaterally. LAW CLERK:??? Cranial nerves II-XII are intact and without focal deficits.??? Psych: Affect is normal. Skin: Cursory review of the skin reveals no obvious lesions concerning for malignancy. Performance Status: 2 - Ambulatory/capable of all self-care, unable to perform any work activities. Up and about more than 50% of waking hours. (ECOG) Pathology: Primary, c03.1 - malignant neoplasm of lower gum, Diagnosed 12/23/2019 (active) stage ivc, t4a, pn2b, m1, Primary, 135 - sarcoidosis, Diagnosed 05/13/2014 (active) and Primary, 275.42 - hypercalcemia, Diagnosed 04/01/2014 (active). Impression/plan: The patient is a 78-year-old female pT4a pN2b M1 with squamous cell carcinoma of the left lower gingiva. She was initially treated with 1 cycle of neoadjuvant chemotherapy consisting of carboplatin/paclitaxel due to an unplanned delay in definitive surgery from left carotid artery stenting, followed by surgical resection, left neck dissection, and reconstruction (09/01/2019). Her postoperative course was complicated with wound healing issues necessitating removal of her reconstructive plate (09/10/2019), followed by a right femoral neck fracture requiring right hip arthroplasty (11/15/2019), followed by rehabilitation. This caused significant delays in adjuvant radiation therapy. It is rare that a metastatic focus in the left level 1B would not be from an involved primary draining lymph node with extracapsular extension, yet pathology could not find any evidence of lymphoid tissue in the 4.5 cm mass in left level 1B. However, even if the left level 1B mass was indeed a lymph node with extracapsular extension, the patient could not tolerate chemotherapy. Furthermore, the patient reported that if she were offered concurrent chemoradiation therapy, she would decline the chemotherapy portion of her treatment. This patient has high risk for disease recurrence given the oral cavity primary and number of lymph nodes positive coupled with the time from initial surgical resection on 09/01/2019 to consideration for adjuvant radiation therapy 4 months later. I have requested a current postoperative CT of the neck for diagnostic purposes, as well as a current MRI of the neck for radiation treatment planning purposes. I plan to provide adjuvant radiation therapy to a total dose ranging from 60-70 Gy in 2 Gy fractions, depending upon results of current imaging. We will begin radiation therapy planning after the requested imaging has been completed. Signed by: Zackary Hughes MD 01/05/2020 8:18:26 PM <<Signature on File>> Time spent with patient: CPT Code: CPT Code:
== END 2020-01-03 14:33 | disposition home or self-care (01) ==
LOC: ONCMED 14:35
PROVIDERS: PCP Family Medicine; Visit Provider Radiology Radiation Oncology
DX: C03.1 Malignant neoplasm of lower gum (principal); Z93.1 Gastrostomy status; Z92.21 Personal history of antineoplastic chemotherapy; Z95.828 Presence of other vascular implants and grafts
CPT/HCPCS: 80053; 84134; 85025; 99215

== ENCOUNTER 2020-01-06 08:27 | Outpatient (CLI) | payer MEDICARE, OTHER, SELFPAY ==
--- NOTE | 2020-01-06 08:55 | CT_ITS ---
WS: [id number] CT NECK WITH CONTRAST HISTORY: GUM CANCER DOWES TECHNIQUE: Contiguous 5 mm axial images are performed through the neck with intravenous contrast. Sag ittal and coronal reformats are also submitted. All CT scans at [facility] use at least o ne of these dose optimization techniques: automated exposure control; mA and/or kV adjustment per pat ient size (includes targeted exams where dose is matched to clinical indication); or iterative recons truction. CONTRAST: CONTRAST: Omnipaque 300; 95 mL IV. DLP: 1805.75 mGycm COMPARISON: 06/22/2019. Prior PET CT 07/23/2019 Interval resection of the LEFT mandible. The large soft tissue tumor centered at the mandibular angle and LEFT submandibular gland has been resected. There is an new soft tissue predominantly of fatty d ensity at the site of the prior resection. Consistent with reconstruction surgery. There are numerous clips present. This reconstructive soft tissue extends from the level of the mandible inferiorly to the clavicle. No prior interval studies for comparison to evaluate for subtle changes. There is very mild thickening and prominence of the medial and lateral LEFT pterygoid muscles as compared to the RI GHT. No adenopathy is identified. No compromise of the airway. Pulmonary fibrosis is noted at the lung apices. Mild atherosclerosis aorta. No adenopathy in the uppe r mediastinum. No supraclavicular lymph nodes. Advanced degenerative changes with reversal of the nor mal cervical lordosis. No osteoblastic or osteolytic bone disease. C3 and C4 anterolisthesis by 3 mm. C7 anterolisthesis by 5 mm. Mild anterior wedging of T1 and T2. CT/CT neck w con* [id number] IMPRESSION: 1. Extensive postsurgical changes in the LEFT neck and face with reconstructio n. 2. Interval resection of the LEFT mandible and the neoplasm at the LEFT mandib ular angle. 3. Reconstructive soft tissue extends from the resected LEFT mandible to the c lavicle. Recommend close CT follow-up to evaluate for subtle interval changes o f report for recurrent neoplasm or adenopathy. 4. No significant adenopathy identified today.
[2020-01-06] MEDS: iohexol 300 mg/mL 100 mL Btl IV (09:32)
== END 2020-01-06 08:28 | disposition home or self-care (01) ==
LOC: RADWPI 08:32
PROVIDERS: Family Provider Family Medicine; PCP Family Medicine; Visit Provider Radiology Radiation Oncology
DX: C03.1 Malignant neoplasm of lower gum (principal)
CPT/HCPCS: 70491; Q9967

== ENCOUNTER 2020-01-10 13:16 | Outpatient (CLI) | payer MEDICARE, OTHER, SELFPAY | END 2020-01-10 13:17 | disposition home or self-care (01) | LOC: WOUND 13:17 | PROVIDERS: Family Provider Family Medicine; PCP Family Medicine; Visit Provider Emergency Medicine | DX: T81.89XA Other complications of procedures, not elsewhere classified, initial encounter (principal) | CPT/HCPCS: 11042 ==

== ENCOUNTER 2020-01-11 06:00 | Outpatient (RCR) | payer MEDICARE, OTHER, SELFPAY | END 2020-02-09 23:59 | disposition home or self-care (01) | LOC: SST 06:00 | PROVIDERS: PCP Family Medicine; Referring Provider Family Medicine; Visit Provider Family Medicine | DX: C06.9 Malignant neoplasm of mouth, unspecified (principal) | CPT/HCPCS: 92507 ==

== ENCOUNTER 2020-01-11 10:15 | Outpatient (CLI) | payer MEDICARE, OTHER, SELFPAY ==
--- NOTE | 2020-01-11 11:46 | XR_ITS ---
WS: [id number] ABDOMEN Supine view of the abdomen CLINICAL INFORMATION: MRI - PEG TUBE COMPARISON: None. FINDINGS: Gastrostomy tube in place. Radiopaque clamp distally in the stomach which may be metallic. Additional radiopaque wire within the tubing also appears metallic. Osteopenia. Partially visualized right [place]. Vascular calcification. Surgical clips left hilum. XR/XR abdomen 1V* [id number] IMPRESSION: Gastrostomy tube in place with a radiopaque clamp/tip in the stomach and radiop aque wiring within the tubing both of which may be metallic. Recommend correlat ion with specific gastrostomy device prior to MRI.
== END 2020-01-11 10:16 | disposition home or self-care (01) ==
PROVIDERS: Family Provider Family Medicine; PCP Family Medicine; Visit Provider Radiology Radiation Oncology
DX: Z93.1 Gastrostomy status (principal)
CPT/HCPCS: 74018

== ENCOUNTER 2020-01-24 13:21 | Outpatient (CLI) | payer MEDICARE, OTHER, SELFPAY | END 2020-01-24 13:22 | disposition home or self-care (01) | LOC: WOUND 13:22 | PROVIDERS: PCP Family Medicine; Visit Provider Emergency Medicine | DX: T81.89XA Other complications of procedures, not elsewhere classified, initial encounter (principal) | CPT/HCPCS: 11042 ==

== ENCOUNTER 2020-01-31 13:07 | Outpatient (CLI) | payer MEDICARE, OTHER, SELFPAY | END 2020-01-31 13:08 | disposition home or self-care (01) | LOC: WOUND 13:08 | PROVIDERS: PCP Family Medicine; Visit Provider Nurse Practitioner Family | DX: L98.492 Non-pressure chronic ulcer of skin of other sites with fat layer exposed (principal) | CPT/HCPCS: 11042; 97605 ==

== ENCOUNTER 2020-02-07 13:38 | Outpatient (CLI) | payer MEDICARE, OTHER, SELFPAY | END 2020-02-07 13:39 | disposition home or self-care (01) | LOC: WOUND 13:40 | PROVIDERS: PCP Family Medicine; Visit Provider Nurse Practitioner Family | DX: T81.89XA Other complications of procedures, not elsewhere classified, initial encounter (principal) | CPT/HCPCS: 97597 ==

== ENCOUNTER 2020-02-09 05:41 | Outpatient (RCR) | payer MEDICARE, OTHER, SELFPAY ==
--- NOTE | 2020-01-12 | CT_ITS ---
Radiation Therapy Planning CT images; total exam DLP: 995.60 mGy-cm MTDD
--- NOTE | 2020-01-26 16:26 | ONCRAD TMN_ITS ---
Radiation Oncology Weekly Treatment Management Patient: Lian Posada MR#: [id number] : 1940 Age: 79 Sex: Female Dictated by: Dr. Zackary Hughes Date of Service: 01/25/2020 Referring Physician(s) : Dr. 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 Her postoperative course was complicated with wound healing issues necessitating removal of her reconstructive plate (09/10/2019), followed by a right femoral neck fracture requiring right hip arthroplasty (11/15/2019), followed by rehabilitation. This caused significant delays in adjuvant radiation therapy. Plan: Adjuvant radiation therapy to a total dose of 60 Gy in 30 fractions. Radiotherapy to date: Course: 2019, Treatment Site: [facility] 30[facility], Ref. ID: [id number], Energy: 6X, Dose/Fx (cGy): 200, #Fx: , Dose Correction (cGy): 0, Total Dose (cGy): 200, Start Date: 01/25/2020, Elapsed Days: 0 Reason for visit: The patient is being seen today as part of their regularly scheduled weekly on treatment visits to assess for acute toxicities from radiotherapy. Interim History: Patient reports no acute side effects from treatment thus far. She does however complain of occasional left ear pain and episodic left-sided hearing loss. Current Medications: Benadryl Allergy, carvedilol, clopidogrel Bisulfate, folic Acid, hydrochlorothiazide, iron, nystatin, omeprazole, predniSONE, pro-Stat, zoloft. Allergies: Sulfa and PCN-Anaphylaxsis. Current Complaints/Review of Systems: Constitutional - Complains of mild fatigue. Denies lack of appetite, fever, night sweats and change in weight. ENMT - Complains of ear pain on the left side occasioanally. Complains of problems with hearing in the left ear. Denies dysphagia, stomatitis but had tenderess to the left upper jaw and altered taste. Neck - Complains of decreased range of motion. Denies neck pain. Vital Signs: Performed on 01/25/2020 2:03 PM BMI - 21.399 kg/m2, Height - 63.00 in, Weight - 120.8 lbs, Temperature - 97.8 f, Pulse - 91, Respiration - 20, O2 Sat - 95 % (low), Pain - 0 and BP - 117/ 61 mm(hg)(/low). Physical Exam: There were no abnormalities noted within the bilateral external auditory canals, and bilateral tympanic membranes were clear and without evidence of a brewing infection, or visual fluid behind the tympanic membrane. Performance Status: 2 - Ambulatory/capable of all self-care, unable to perform any work activities. Up and about more than 50% of waking hours. (ECOG) Lab: None pending in Radiation Oncology. Imaging: Radiation therapy imaging related to accurate target localization (i.e. KV, MV and CBCT) was reviewed. Appropriate changes, if any, were made to ensure treatment accuracy. Plan: The patient is tolerating therapy reasonably well. Radiotherapy will continue as planned. The patient was encouraged to consider an audiology test to address the patient's perceived left-sided hearing loss. CPT: 90393 Signed by: Dr. Zackary Hughes 01/26/2020 4:25:22 PM
--- NOTE | 2020-02-10 08:51 | ONCRAD TMN_ITS ---
Radiation Oncology Weekly Treatment Management Patient: Albino Beal MR#: [id number] : 1940 Age: 79 Sex: Female Dictated by: Dr. Zackary Hughes Date of Service: 02/08/2020 Referring Physician(s) : Dr. 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 Her postoperative course was complicated with wound healing issues necessitating removal of her reconstructive plate (09/10/2019), followed by a right femoral neck fracture requiring right hip arthroplasty (11/15/2019), followed by rehabilitation. This caused significant delays in adjuvant radiation therapy. Plan: Adjuvant radiation therapy to a total dose of 60 Gy in 30 fractions. Radiotherapy to date: Course: 2019, Treatment Site: [facility], Ref. ID: [id number], Energy: 6X, Dose/Fx (cGy): 200, #Fx: , Dose Correction (cGy): 0, Total Dose (cGy): 2,200, Start Date: 01/25/2020, Elapsed Days: 14 Reason for visit: The patient is being seen today as part of their regularly scheduled weekly on treatment visits to assess for acute toxicities from radiotherapy. Interim History: The patient reports mild to moderate oral cavity pain, and odynophagia. She declined offers for miracle mouthwash or opiate medication at this time. She also reports moderate fatigue. Current Medications: Benadryl Allergy, carvedilol, clopidogrel Bisulfate, folic Acid, hydrochlorothiazide, nystatin, omeprazole, predniSONE, pro-Stat, zoloft. Allergies: Sulfa and PCN-Anaphylaxsis. Current Complaints/Review of Systems: Constitutional - Complains of lack of appetite. Complains of moderate fatigue. Denies fever, night sweats and change in weight. ENMT - Complains of dysphagia and also has odynophagia.. Complains of ear pain on the left side. Complains of mouth dryness. Complains of stomatitis. Neck - Complains of decreased range of motion. Denies neck pain. Integumentary - Has slight redness to the neck. Respiratory - Complains of cough which is productive and the sputum is clear in color. In the morning there might be some yellow to it. Complains of hiccoughs. Denies dyspnea. Vital Signs: Performed on 02/08/2020 11:09 AM BMI - 21.186 kg/m2, Height - 63.00 in, Weight - 119.6 lbs, Temperature - 97.9 f, Pulse - 86, Respiration - 20, O2 Sat - 96 %, Pain - 5 and BP - 126/ 61 mm(hg)(/low). Physical Exam: Appears stable, no skin erythema or desquamation. Performance Status: 2 - Ambulatory/capable of all self-care, unable to perform any work activities. Up and about more than 50% of waking hours. (ECOG) Lab: None pending in Radiation Oncology. Imaging: Radiation therapy imaging related to accurate target localization (i.e. KV, MV and CBCT) was reviewed. Appropriate changes, if any, were made to ensure treatment accuracy. Plan: The patient is tolerating therapy reasonably well. Radiotherapy will continue as planned. CPT: 22953 Signed by: Dr. Zackary Hughes 02/10/2020 8:50:13 AM
== END 2020-02-09 23:59 | disposition home or self-care (01) ==
LOC: ONCMED 05:41
PROVIDERS: PCP Family Medicine; Visit Provider Radiology Radiation Oncology
DX: Z51.0 Encounter for antineoplastic radiation therapy (principal); C03.1 Malignant neoplasm of lower gum
CPT/HCPCS: 77300; 77301; 77334; 77336; 77338; 77386

== ENCOUNTER 2020-02-10 06:00 | Outpatient (RCR) | payer MEDICARE, OTHER, SELFPAY | END 2020-03-11 23:59 | disposition home or self-care (01) | LOC: SST 06:00 | PROVIDERS: PCP Family Medicine; Referring Provider Family Medicine; Visit Provider Family Medicine | DX: C06.9 Malignant neoplasm of mouth, unspecified (principal) | CPT/HCPCS: 92507 ==

== ENCOUNTER 2020-02-14 13:41 | Outpatient (CLI) | payer MEDICARE, OTHER, SELFPAY | END 2020-02-14 13:42 | disposition home or self-care (01) | LOC: WOUND 13:41 | PROVIDERS: PCP Family Medicine; Visit Provider Nurse Practitioner Family | DX: L98.492 Non-pressure chronic ulcer of skin of other sites with fat layer exposed (principal) | CPT/HCPCS: 97605 ==

== ENCOUNTER 2020-02-21 14:29 | Outpatient (CLI) | payer MEDICARE, OTHER, SELFPAY | END 2020-02-21 14:30 | disposition home or self-care (01) | LOC: WOUND 14:30 | PROVIDERS: PCP Family Medicine; Visit Provider Nurse Practitioner Family | DX: L98.492 Non-pressure chronic ulcer of skin of other sites with fat layer exposed (principal) | CPT/HCPCS: G0463 ==

== ENCOUNTER 2020-02-28 13:42 | Outpatient (CLI) | payer MEDICARE, OTHER, SELFPAY | END 2020-02-28 13:43 | disposition home or self-care (01) | LOC: WOUND 13:43 | PROVIDERS: PCP Family Medicine; Visit Provider Thoracic Surgery (Cardiothoracic Vascular Surgery) | DX: L98.492 Non-pressure chronic ulcer of skin of other sites with fat layer exposed (principal) | CPT/HCPCS: 11042 ==

== ENCOUNTER 2020-03-06 13:23 | Outpatient (CLI) | payer MEDICARE, OTHER, SELFPAY | END 2020-03-06 13:24 | disposition home or self-care (01) | LOC: WOUND 13:24 | PROVIDERS: PCP Family Medicine; Visit Provider Thoracic Surgery (Cardiothoracic Vascular Surgery) | DX: L98.492 Non-pressure chronic ulcer of skin of other sites with fat layer exposed (principal) | CPT/HCPCS: 11042 ==

== ENCOUNTER 2020-03-08 05:36 | Outpatient (RCR) | payer MEDICARE, OTHER, SELFPAY ==
--- NOTE | 2020-02-17 07:55 | ONCRAD TMN_ITS ---
Radiation Oncology Weekly Treatment Management Patient: Lian Posada MR#: [id number] : 1940 Age: 79 Sex: Female Dictated by: Dr. Zackary Hughes Date of Service: 02/15/2020 Referring Physician(s) : Dr. 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 Her postoperative course was complicated with wound healing issues necessitating removal of her reconstructive plate (09/10/2019), followed by a right femoral neck fracture requiring right hip arthroplasty (11/15/2019), followed by rehabilitation. This caused significant delays in adjuvant radiation therapy. Plan: Adjuvant radiation therapy to a total dose of 60 Gy in 30 fractions. Radiotherapy to date: Course: 2019, Treatment Site: [facility], Ref. ID: [id number], Energy: 6X, Dose/Fx (cGy): 200, #Fx: 16 / 30, Dose Correction (cGy): 0, Total Dose (cGy): 3,200, Start Date: 01/25/2020, Elapsed Days: 21 Reason for visit: The patient is being seen today as part of their regularly scheduled weekly on treatment visits to assess for acute toxicities from radiotherapy. Interim History: The patient reports odynophagia, oral cavity pain, and left-sided headaches. Current Medications: Benadryl Allergy, carvedilol, clopidogrel Bisulfate, folic Acid, hydrochlorothiazide, nystatin, omeprazole, predniSONE, pro-Stat, zoloft. Allergies: Sulfa and PCN-Anaphylaxsis. Current Complaints/Review of Systems: Constitutional - Complains of moderate fatigue. Denies lack of appetite but is having painful swallowing, fever, night sweats and change in weight. ENMT - Complains of dysphagia. Complains of ear pain on the left side. Complains of mouth dryness. Complains of stomatitis which is on the left corner of the mouth. Neck - Complains of neck pain to the left side and decreased range of motion. Integumentary - Has mild redness to the left side of the neck. Respiratory - Complains of hiccoughs. Neurologic - Complains of headaches which happens during Rad tx and sometimes at night on the left side of the head. Started over the weekend. Vital Signs: Performed on 02/15/2020 10:57 AM BMI - 21.08 kg/m2, Height - 63.00 in, Weight - 119.0 lbs, Temperature - 97.7 f, Pulse - 77, Respiration - 18, O2 Sat - 97 %, Pain - 5 and BP - 110/ 57 mm(hg)(/low). Physical Exam: Mucositis is appreciated within the oral cavity (left greater than right). Xerostomia is also appreciated. Performance Status: 2 - Ambulatory/capable of all self-care, unable to perform any work activities. Up and about more than 50% of waking hours. (ECOG) Lab: None pending in Radiation Oncology. Imaging: Radiation therapy imaging related to accurate target localization (i.e. KV, MV and CBCT) was reviewed. Appropriate changes, if any, were made to ensure treatment accuracy. Plan: The patient is tolerating therapy reasonably well. Radiotherapy will continue as planned. The patient was prescribed hydrocodone, and lactulose as a bowel regimen. CPT: 32257 Signed by: Dr. Zackary Hughes 02/17/2020 7:53:27 AM
--- NOTE | 2020-02-22 17:19 | ONCRAD TMN_ITS ---
[facility] Oncology Weekly Treatment Management Patient: Albino Beal MR#: [id number] : 1940 Age: 79 Sex: Female Dictated by: Dr. Zackary Hughes Date of Service: 02/22/2020 Referring Physician(s) : Dr. 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 Her postoperative course was complicated with wound healing issues necessitating removal of her reconstructive plate (09/10/2019), followed by a right femoral neck fracture requiring right hip arthroplasty (11/15/2019), followed by rehabilitation. This caused significant delays in adjuvant radiation therapy. Plan: Adjuvant radiation therapy to a total dose of 60 Gy in 30 fractions. Radiotherapy to date: Course: 2019, Treatment Site: [facility] 30[facility], Ref. ID: [id number], Energy: 6X, Dose/Fx (cGy): 200, #Fx: 30, Dose Correction (cGy): 0, Total Dose (cGy): 4,200, Start Date: 01/25/2020, Elapsed Days: 28 Reason for visit: The patient is being seen today as part of their regularly scheduled weekly on treatment visits to assess for acute toxicities from radiotherapy. Interim History: She reports thick ropey sputum, oral cavity pain, and odynophagia. Current Medications: Benadryl Allergy, carvedilol, clopidogrel Bisulfate, folic Acid, hydrochlorothiazide, nystatin, omeprazole, predniSONE, pro-Stat, zoloft. Allergies: Sulfa and PCN-Anaphylaxsis. Current Complaints/Review of Systems: Constitutional - Complains of moderate fatigue. Complains of change in weight in which she is up 1 lb. since last OTV. Denies lack of appetite and fever. ENMT - Complains of dysphagia, mouth dryness and stomatitis. Neck - Complains of neck pain and decreased range of motion. Integumentary - Has redness to the neck. Respiratory - Complains of cough which is productive and the sputum is thick and hard to cough up. Vital Signs: Performed on 02/22/2020 10:35 AM BMI - 21.257 kg/m2, Height - 63.00 in, Weight - 120.0 lbs, Temperature - 97.4 f, Pulse - 88, Respiration - 20, O2 Sat - 98 %, Pain - 4 and BP - 107/ 71 mm(hg). Physical Exam: Erythema of the neck is appreciated along with xerostomia, mucositis, and mild ulceration in the left oral commissure. Dry desquamation is appreciated within the left neck. Performance Status: 2 - Ambulatory/capable of all self-care, unable to perform any work activities. Up and about more than 50% of waking hours. (ECOG) Lab: None pending in Radiation Oncology. Imaging: Radiation therapy imaging related to accurate target localization (i.e. KV, MV and CBCT) was reviewed. Appropriate changes, if any, were made to ensure treatment accuracy. Plan: The patient is tolerating therapy reasonably well. Radiotherapy will continue as planned. The patient was advised to use pain medication as prescribed, increase the frequency of salt/baking soda oral rinses, and instructions were given for [place] soaks therapy. CPT: 63852 Signed by: Dr. Zackary Hughes 02/22/2020 5:17:10 PM
--- NOTE | 2020-02-29 17:11 | ONCRAD TMN_ITS ---
Radiation Oncology Weekly Treatment Management Patient: Albino Beal MR#: [id number] : 1940 Age: 79 Sex: Female Dictated by: Dr. Zackary Hughes Date of Service: 02/29/2020 Referring Physician(s) : Dr. 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 Her postoperative course was complicated with wound healing issues necessitating removal of her reconstructive plate (09/10/2019), followed by a right femoral neck fracture requiring right hip arthroplasty (11/15/2019), followed by rehabilitation. This caused significant delays in adjuvant radiation therapy. Plan: Adjuvant radiation therapy to a total dose of 66 Gy in 33 fractions. A 6 Gy/3 fx boost has been planned to be administered after 60 Gy, as tolerated by the patient. Radiotherapy to date: Course: 2019, Treatment Site: [facility] 30[facility], Ref. ID: [id number], Energy: 6X, Dose/Fx (cGy): 200, #Fx: 26 / 30, Dose Correction (cGy): 0, Total Dose (cGy): 5,200, Start Date: 01/25/2020, Elapsed Days: 35 Reason for visit: The patient is being seen today as part of their regularly scheduled weekly on treatment visits to assess for acute toxicities from radiotherapy. Interim History: The patient reports significant fatigue, and overall she is having a difficult time with radiation therapy. The patient tolerates opiate pain management poorly. Current Medications: Benadryl Allergy, carvedilol, clopidogrel Bisulfate, folic Acid, hydrochlorothiazide, nystatin, omeprazole, predniSONE, pro-Stat, zoloft. Allergies: Sulfa and PCN-Anaphylaxsis. Current Complaints/Review of Systems: Constitutional - Complains of lack of appetite. Complains of moderate fatigue. Complains of change in weight down 2.2 lbs. since last OTV. Been using the G-Tube and is putting in 3 to 4 bottles of Jevity. Denies fever and night sweats. ENMT - Complains of dysphagia. Complains of ear pain on the left side. Complains of mouth dryness. Complains of stomatitis and also has a sore on the left corner of the lip. Neck - Complains of neck pain. Integumentary - Has desquamation to the left side of the neck. Neurologic - Complains of headaches off and on that is in different parts of the head. Vital Signs: Performed on 02/29/2020 10:57 AM BMI - 20.867 kg/m2, Height - 63.00 in, Weight - 117.8 lbs, Temperature - 98.4 f, Pulse - 74, Respiration - 20, O2 Sat - 96 %, Pain - 4 and BP - 105/ 66 mm(hg). Physical Exam: Bright erythema on the bilateral neck is appreciated, along with dry desquamation, and blisters on the reconstruction flap. Oral cavity mouth ulcers and mucositis are appreciated along with xerostomia. Performance Status: 2 - Ambulatory/capable of all self-care, unable to perform any work activities. Up and about more than 50% of waking hours. (ECOG) Lab: None pending in Radiation Oncology. Imaging: Radiation therapy imaging related to accurate target localization (i.e. KV, MV and CBCT) was reviewed. Appropriate changes, if any, were made to ensure treatment accuracy. Plan: Radiotherapy will continue as planned. It is questionable if the patient will be able to tolerate the 3 fraction boost. The patient was instructed to continue treatments this week, take Friday off, and we will decide on Friday if the boost should be administered. CPT: 34618 Signed by: Dr. Zackary Hughes 02/29/2020 5:09:51 PM
--- NOTE | 2020-03-08 19:19 | ONCRAD TMN_ITS ---
Radiation Oncology Weekly Treatment Management Patient: Lian Posada MR#: [id number] : 1940 Age: 79 Sex: Female Dictated by: Dr. Zackary Hughes Date of Service: 03/07/2020 Referring Physician(s) : Dr. 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 Her postoperative course was complicated with wound healing issues necessitating removal of her reconstructive plate (09/10/2019), followed by a right femoral neck fracture requiring right hip arthroplasty (11/15/2019), followed by rehabilitation. This caused significant delays in adjuvant radiation therapy. Plan: Adjuvant radiation therapy to a total dose of 66 Gy in 33 fractions. A 6 Gy/3 fx boost has been planned to be administered after 60 Gy, as tolerated by the patient. Radiotherapy to date: Course: 2019, Treatment Site: [facility] 30[facility], Ref. ID: [id number], Energy: 6X, Dose/Fx (cGy): 200, #Fx: 30 / 30, Dose Correction (cGy): 0, Total Dose (cGy): 6,000, Start Date: 01/25/2020, End Date: 03/07/2020, Elapsed Days: 42 Reason for visit: The patient is being seen today as part of their regularly scheduled weekly on treatment visits to assess for acute toxicities from radiotherapy. Interim History: The patient reports significant oral cavity pain. She is tolerating therapy poorly. Current Medications: Benadryl Allergy, carvedilol, clopidogrel Bisulfate, folic Acid, hydrochlorothiazide, nystatin, omeprazole, predniSONE, pro-Stat, zoloft. Allergies: Sulfa and PCN-Anaphylaxsis. Current Complaints/Review of Systems: Constitutional - Complains of lack of appetite but is using her PEG Tube and is putting in 3 bottles of Jeviety per day plus will drink 1 bottle of Ensure, fatigue and change in weight in which she has gained 2.2 lbs. since last wekk. Denies fever and night sweats. ENMT - Complains of dysphagia. Complains of ear pain on the left side that comes and goes. Complains of mouth dryness. Complains of stomatitis. Complains of altered taste. Neck - Complains of neck pain. Integumentary - Has desquamation to the neck and left corner of the lip. Vital Signs: Physical Exam: Skin erythema and desquamation is appreciated in the neck. The patient also has ulceration in the left oral commissure, and left oral tongue. Performance Status: 2 - Ambulatory/capable of all self-care, unable to perform any work activities. Up and about more than 50% of waking hours. (ECOG) Lab: None pending in Radiation Oncology. Imaging: Radiation therapy imaging related to accurate target localization (i.e. KV, MV and CBCT) was reviewed. Appropriate changes, if any, were made to ensure treatment accuracy. Plan: The patient was advised that she could discontinue treatment after having received at least 60 Gy. CPT: 09212 Signed by: Dr. Zackary Hughes 03/08/2020 7:18:13 PM
== END 2020-03-11 23:59 | disposition home or self-care (01) ==
LOC: ONCMED 05:36
PROVIDERS: PCP Family Medicine; Visit Provider Radiology Radiation Oncology
DX: Z51.0 Encounter for antineoplastic radiation therapy (principal); C03.1 Malignant neoplasm of lower gum; K12.33 Oral mucositis (ulcerative) due to radiation; R13.10 Dysphagia, unspecified; K11.7 Disturbances of salivary secretion; L58.0 Acute radiodermatitis; Y84.2 Radiological procedure and radiotherapy as the cause of abnormal reaction of the patient, or of later complication, without mention of misadventure at the time of the procedure; Z92.21 Personal history of antineoplastic chemotherapy; Z93.1 Gastrostomy status; Z95.828 Presence of other vascular implants and grafts; Z79.891 Long term (current) use of opiate analgesic
CPT/HCPCS: 77300; 77336; 77338; 77386

== ENCOUNTER 2020-03-12 06:00 | Outpatient (RCR) | payer MEDICARE, OTHER, SELFPAY | END 2020-04-10 23:59 | disposition home or self-care (01) | LOC: SST 06:00 | PROVIDERS: PCP Family Medicine; Visit Provider Family Medicine | DX: C06.9 Malignant neoplasm of mouth, unspecified (principal) | CPT/HCPCS: 92507 ==

== ENCOUNTER 2020-03-13 13:34 | Outpatient (CLI) | payer MEDICARE, OTHER, SELFPAY | END 2020-03-13 13:35 | disposition home or self-care (01) | LOC: WOUND 13:35 | PROVIDERS: PCP Family Medicine; Visit Provider Nurse Practitioner Family | DX: L98.492 Non-pressure chronic ulcer of skin of other sites with fat layer exposed (principal) | CPT/HCPCS: 15271; Q4110 ==

== ENCOUNTER 2020-03-20 14:52 | Outpatient (CLI) | payer MEDICARE, OTHER, SELFPAY | END 2020-03-20 14:53 | disposition home or self-care (01) | LOC: WOUND 14:53 | PROVIDERS: PCP Family Medicine; Visit Provider Thoracic Surgery (Cardiothoracic Vascular Surgery) | DX: L98.492 Non-pressure chronic ulcer of skin of other sites with fat layer exposed (principal) | CPT/HCPCS: 11042 ==

== ENCOUNTER 2020-03-27 08:18 | Outpatient (CLI) | payer MEDICARE, OTHER, SELFPAY | END 2020-03-27 08:19 | disposition home or self-care (01) | LOC: WOUND 08:18 | PROVIDERS: PCP Family Medicine; Visit Provider Nurse Practitioner Family | DX: L98.492 Non-pressure chronic ulcer of skin of other sites with fat layer exposed (principal) | CPT/HCPCS: 11042 ==

== ENCOUNTER 2020-04-03 08:54 | Outpatient (CLI) | payer MEDICARE, OTHER, SELFPAY | END 2020-04-03 08:55 | disposition home or self-care (01) | LOC: WOUND 08:55 | PROVIDERS: PCP Family Medicine; Visit Provider Nurse Practitioner Family | DX: L98.492 Non-pressure chronic ulcer of skin of other sites with fat layer exposed (principal) | CPT/HCPCS: 11042 ==

== ENCOUNTER 2020-04-10 09:07 | Outpatient (CLI) | payer MEDICARE, OTHER, SELFPAY | END 2020-04-10 09:08 | disposition home or self-care (01) | LOC: WOUND 09:09 | PROVIDERS: PCP Family Medicine; Visit Provider Nurse Practitioner Family | DX: L98.492 Non-pressure chronic ulcer of skin of other sites with fat layer exposed (principal); I96 Gangrene, not elsewhere classified | CPT/HCPCS: 11042; 87070; 87075; 87205 ==

== ENCOUNTER 2020-04-17 09:09 | Outpatient (CLI) | payer MEDICARE, OTHER, SELFPAY | END 2020-04-17 09:10 | disposition home or self-care (01) | LOC: WOUND 09:10 | PROVIDERS: PCP Family Medicine; Visit Provider Nurse Practitioner Family | DX: L98.492 Non-pressure chronic ulcer of skin of other sites with fat layer exposed (principal) | CPT/HCPCS: 11042 ==

== ENCOUNTER 2020-04-24 09:14 | Outpatient (CLI) | payer MEDICARE, OTHER, SELFPAY | END 2020-04-24 09:15 | disposition home or self-care (01) | LOC: WOUND 09:15 | PROVIDERS: PCP Family Medicine; Visit Provider Nurse Practitioner Family | DX: L98.492 Non-pressure chronic ulcer of skin of other sites with fat layer exposed (principal) | CPT/HCPCS: 11042 ==

== ENCOUNTER 2020-05-01 09:04 | Outpatient (CLI) | payer MEDICARE, OTHER, SELFPAY | END 2020-05-01 09:05 | disposition home or self-care (01) | LOC: WOUND 09:05 | PROVIDERS: PCP Family Medicine; Visit Provider Nurse Practitioner Family | DX: I96 Gangrene, not elsewhere classified (principal); L98.492 Non-pressure chronic ulcer of skin of other sites with fat layer exposed | CPT/HCPCS: G0463 ==

== ENCOUNTER 2020-05-08 08:52 | Outpatient (CLI) | payer MEDICARE, OTHER, SELFPAY | END 2020-05-08 08:53 | disposition home or self-care (01) | LOC: WOUND 08:54 | PROVIDERS: PCP Family Medicine; Visit Provider Nurse Practitioner Family | DX: I96 Gangrene, not elsewhere classified (principal); L98.492 Non-pressure chronic ulcer of skin of other sites with fat layer exposed | CPT/HCPCS: 11042; 87070; 87077; 87176; 87186; 87205 ==

== ENCOUNTER 2020-05-09 08:57 | Outpatient (RCR) | payer MEDICARE, OTHER, SELFPAY ==
--- NOTE | 2020-04-28 11:56 | ONCRAD EPV_ITS ---
Radiation Oncology Established Patient Note Patient: Lian Posada MR#: [id number] : 1940 Attending Physician: Jamie Coffman M.D. Date of Service: 04/28/2020 Lian Posada returned to my office this morning for a unscheduled follow-up appointment. 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 A segmental mandibulectomy, floor of mouth resection, neck dissection with a tracheostomy and pectoral flap reconstruction was completed in August 2019. Neoadjuvant chemotherapy was administered (Carboplatin, Taxol - 1 cycle). Radiotherapy was administered between the dates of January 25, 2020 through March 07, 2020. A prescribed dose of 60 Gy was delivered in 30 fractions over 42 elapsed days. On review of systems, she described an area on her left cheek that had produced fluid drainage. She denied oral lesions and pain. On physical examination, the temperature is 97.6???F. Her blood pressure was 99/65 mmHg. The pulse was 96 bpm and the respiratory rate was 18 breaths per minute. Examination of the oral cavity failed to identify palpable or visible abnormalities. The left buccal mucosa was pink with subtle areas of pallor. A small punctate area was present on the skin of the left mandible. No drainage was present. I did not identify any cervical lymphadenopathy. Left-sided submandibular lymphedema was present. In summary, the Lian Posada returned for an unscheduled follow-up. A wound culture of the left neck wound collected on April 10, 2020 demonstrated superficial skin sun. I recommended completing the 10 day course of Muciprocin. I will also refer her to physical therapy for evaluation of the submandibular/submental edema. Signed by: Dr. Jamie Coffman 04/28/2020 11:54:36 AM
[2020-05-09 10:07] LABS: Blood Urea Nitrogen 13 mg/dL (8-23)
== END 2020-05-11 23:59 | disposition home or self-care (01) ==
LOC: ONCMED 08:57
PROVIDERS: Specialist; PCP Family Medicine; Visit Provider Radiology Radiation Oncology
DX: C41.1 Malignant neoplasm of mandible (principal)
CPT/HCPCS: 36415; 70491; 82565; 84520; Q9967

== ENCOUNTER 2020-05-09 10:13 | Outpatient (CLI) | payer MEDICARE, OTHER, SELFPAY ==
--- NOTE | 2020-05-09 10:15 | CT_ITS ---
WS: [id number] Exam: CT neck w con* [id number] Date/Time of Exam: 05/09/2020 10:22 AM Reason For Exam: MALIGNANT NEOPLASM OF MANDIBLE DLP: 1481.[address] scans at [facility] use at least one of these dose optimization techniques: automat ed exposure control; mA and/or kV adjustment per patient size (includes targeted exams where dose is matched to clinical indication); or iterative reconstruction. The neck is evaluated in the axial plan e with sagittal and coronal reformatted images. 100 mL of nonionic contrast administered intravenousl y. Comparison to the most recent exam 01/06/2020. Again noted are signs of partial resection of the left mandible and left neck dissection. There was n o evidence of recurrent mass or lymphadenopathy. The residual left mandible as now dislocated anterio rly. The airway is patent. The region of the tongue base is clear. Reconstructed soft tissue structu res of the left mandibular area now protrude along the left lateral aspect of the face and neck.. Nor mal thyroid tissue. Left carotid stent noted. Remaining vascular structures are unremarkable. Chronic changes noted in the visualized upper lung zones. No superior mediastinal lymphadenopathy. No destru ctive bone lesions. Moderately advanced degenerative changes of the cervical spine as previously desc ribed. Facial sinuses and mastoids are clear. CT/CT neck w con* [id number] IMPRESSION: 1. Postoperative changes of the partial resection of the left mandible and left neck stable in appearance. No recurrent mass or lymphadenopathy noted. 2. The body and condylar portion of the residual left mandible has now dislocat ed anteriorly along with reconstructed soft tissue structures. This creates a p rominent soft tissue bulge along the left face and neck region.
[2020-05-09] MEDS: iohexol 300 mg/mL 100 mL Btl IV (10:48)
== END 2020-05-09 10:14 | disposition home or self-care (01) ==
LOC: RADWPI 10:14
PROVIDERS: PCP Family Medicine; Visit Provider Specialist
DX: C41.1 Malignant neoplasm of mandible (principal)
CPT/HCPCS: 70491; Q9967

== ENCOUNTER 2020-05-15 08:56 | Outpatient (CLI) | payer MEDICARE, OTHER, SELFPAY | END 2020-05-15 08:57 | disposition home or self-care (01) | LOC: WOUND 08:57 | PROVIDERS: PCP Family Medicine; Visit Provider Nurse Practitioner Family | DX: T81.89XA Other complications of procedures, not elsewhere classified, initial encounter (principal); Y83.8 Other surgical procedures as the cause of abnormal reaction of the patient, or of later complication, without mention of misadventure at the time of the procedure | CPT/HCPCS: 11042 ==

== ENCOUNTER 2020-05-22 10:15 | Outpatient (CLI) | payer MEDICARE, OTHER, SELFPAY | END 2020-05-22 10:16 | disposition home or self-care (01) | LOC: WOUND 10:16 | PROVIDERS: PCP Family Medicine; Visit Provider Nurse Practitioner Family | DX: L98.492 Non-pressure chronic ulcer of skin of other sites with fat layer exposed (principal) | CPT/HCPCS: 11042 ==

== ENCOUNTER 2020-06-05 10:33 | Outpatient (CLI) | payer MEDICARE, OTHER, SELFPAY | END 2020-06-05 10:34 | disposition home or self-care (01) | LOC: WOUND 10:34 | PROVIDERS: PCP Family Medicine; Visit Provider Nurse Practitioner Family | DX: L98.492 Non-pressure chronic ulcer of skin of other sites with fat layer exposed (principal); T81.31XS Disruption of external operation (surgical) wound, not elsewhere classified, sequela; Y83.8 Other surgical procedures as the cause of abnormal reaction of the patient, or of later complication, without mention of misadventure at the time of the procedure | CPT/HCPCS: 11042 ==

== ENCOUNTER 2020-06-12 09:28 | Outpatient (CLI) | payer MEDICARE, OTHER, SELFPAY | END 2020-06-12 09:29 | disposition home or self-care (01) | LOC: WOUND 09:29 | PROVIDERS: PCP Family Medicine; Visit Provider Nurse Practitioner Family | DX: L98.492 Non-pressure chronic ulcer of skin of other sites with fat layer exposed (principal) | CPT/HCPCS: 11042 ==

== ENCOUNTER 2020-06-19 09:44 | Outpatient (CLI) | payer MEDICARE, OTHER, SELFPAY | END 2020-06-19 09:45 | disposition home or self-care (01) | LOC: WOUND 09:45 | PROVIDERS: PCP Family Medicine; Visit Provider Nurse Practitioner Family | DX: T81.89XA Other complications of procedures, not elsewhere classified, initial encounter (principal); Y83.8 Other surgical procedures as the cause of abnormal reaction of the patient, or of later complication, without mention of misadventure at the time of the procedure; L98.491 Non-pressure chronic ulcer of skin of other sites limited to breakdown of skin | CPT/HCPCS: 11042 ==

== ENCOUNTER 2020-07-10 09:19 | Outpatient (CLI) | payer MEDICARE, OTHER, SELFPAY | END 2020-07-10 09:20 | disposition home or self-care (01) | LOC: WOUND 09:21 | PROVIDERS: PCP Family Medicine; Visit Provider Nurse Practitioner Family | DX: T81.89XA Other complications of procedures, not elsewhere classified, initial encounter (principal); L98.491 Non-pressure chronic ulcer of skin of other sites limited to breakdown of skin | CPT/HCPCS: 11042; 87070; 87075; 87205 ==

== ENCOUNTER 2020-07-17 09:30 | Outpatient (CLI) | payer MEDICARE, OTHER, SELFPAY | END 2020-07-17 09:31 | disposition home or self-care (01) | LOC: WOUND 09:30 | PROVIDERS: PCP Family Medicine; Visit Provider Nurse Practitioner Family | DX: T81.89XA Other complications of procedures, not elsewhere classified, initial encounter (principal); L98.491 Non-pressure chronic ulcer of skin of other sites limited to breakdown of skin | CPT/HCPCS: 11042 ==

== ENCOUNTER 2020-07-31 10:14 | Outpatient (CLI) | payer MEDICARE, OTHER, SELFPAY | END 2020-07-31 10:15 | disposition home or self-care (01) | LOC: WOUND 10:19 | PROVIDERS: PCP Family Medicine; Visit Provider Nurse Practitioner Family | DX: L98.492 Non-pressure chronic ulcer of skin of other sites with fat layer exposed (principal) | CPT/HCPCS: 97597 ==

== ENCOUNTER 2020-08-07 10:06 | Outpatient (CLI) | payer MEDICARE, OTHER, SELFPAY | END 2020-08-07 10:07 | disposition home or self-care (01) | LOC: WOUND 10:07 | PROVIDERS: PCP Family Medicine; Visit Provider Nurse Practitioner Family | DX: L98.492 Non-pressure chronic ulcer of skin of other sites with fat layer exposed (principal) | CPT/HCPCS: G0463 ==

== ENCOUNTER 2020-08-21 10:13 | Outpatient (CLI) | payer MEDICARE, OTHER, SELFPAY | END 2020-08-21 10:14 | disposition home or self-care (01) | LOC: WOUND 10:15 | PROVIDERS: PCP Family Medicine; Visit Provider Nurse Practitioner Family | DX: T81.89XA Other complications of procedures, not elsewhere classified, initial encounter (principal) | CPT/HCPCS: 11042 ==

== ENCOUNTER 2020-09-04 09:49 | Outpatient (CLI) | payer MEDICARE, OTHER, SELFPAY | END 2020-09-04 09:50 | disposition home or self-care (01) | LOC: WOUND 09:52 | PROVIDERS: Visit Provider Nurse Practitioner Family | DX: T81.89XA Other complications of procedures, not elsewhere classified, initial encounter (principal) | CPT/HCPCS: 99212 ==

== ENCOUNTER 2020-09-06 12:49 | Outpatient (CLI) | payer MEDICARE, OTHER, SELFPAY ==
[2020-09-06 14:07] LABS: Basophils % 0.4 %; Eosinophils # 0.2 10^3/uL (0.0-0.8); Eosinophils % 2.8 %; Hematocrit 37.8 % (37.0-47.0); Hemoglobin 12.4 g/dL (11.5-15.3); Lymphocytes # 0.7 10^3/uL (0.8-4.8); Lymphocytes % 10.1 %; Mean Corpuscular HGB Conc 32.8 g/dL (30.0-36.0); Mean Corpuscular Hemoglobin 30.5 pg (28.0-34.0); Mean Corpuscular Volume 92.9 fL (81-99); Mean Platelet Volume 9.7 fL (7.4-10.4); Monocytes # 0.9 10^3/uL (0.2-0.9); Monocytes % 13.3 %; Neutrophils # 5.13 10^3/uL (1.8-7.7); Neutrophils % 72.8 %; Nucleated Red Blood Cells % 0 %; Platelet Count 281 10^3/cmm (130-400); Red Blood Count 4.07 10^6/uL (4.1-5.3); Red Cell Distribution Width 12.3 % (12.1-15.1); White Blood Count 7.1 10^3/uL (4.0-10.0)
[2020-09-06 14:34] LABS: Alanine Aminotransferase 20 U/L (0-33); Albumin Level 4.1 g/dL (3.5-5.2); Alkaline Phosphatase 145 IU/L (35-105); Anion Gap 11.8 (5-19); Aspartate Amino Transferase 23 U/L (0-32); Blood Urea Nitrogen 20 mg/dL (8-23); Calcium 9.1 mg/dL (8.5-10.5); Carbon Dioxide 32 mmol/L (22-29); Chloride 95 mmol/L (98-107); Globulin 3.3 g/dL (1.3-4.6); Glucose 106 mg/dL (65-115); Osmolality Calculated 283 mOsm/kg (285-295); Potassium 3.8 mmol/L (3.5-5.1); Sodium 135 mmol/L (136-145); Thyroid Stimulating Hormone 5.38 uIU/mL (0.27-4.20); Total Bilirubin 0.6 mg/dL (0.15-1.2); Total Protein 7.4 g/dL (6.6-8.7)
--- NOTE | 2020-09-08 19:41 | ONC FU_ITS ---
Dr. Coley Patient Follow-Up Note Patient: Lian Posada Unit #: [id number]: 1940 Dicatated By: Joao Coley M.D.Date of Visit:Sep 06, 2020 Onc Med Follow-up/Prog Note Chief Complaint: Gingival cancer. 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 She has previously been treated here for sarcoidosis. She had then presented with pain in the left mandible following a dental extraction in January 2019. It had continued to worsen despite several rounds of antibiotic therapy. By June 2019 she had developed a mass on the left side of the neck. She was seen by Dr. Tobias, and she was noted to have a lesion involving the left lower gingiva. CT of the neck showed a heterogeneously enhancing mass with central necrosis involving the left submandibular space with mass-effect in the anterior aspect of the submandibular gland. Atherosclerotic changes were noted in the carotid bulb bilaterally. FNA biopsy of the gingival lesion showed keratosis with moderate atypia and foci suspicious for well-differentiated invasive squamous cell carcinoma. FNA biopsy of the left neck mass showed necroinflammatory changes with rare cells suspicious for metastatic carcinoma. She was then seen for further management by Dr. Sherry Chacon in [place], [place], and she was recommended to undergo definitive surgery. However, her further evaluation with CT angiogram of the neck on 07/14/2019 showed severe stenosis involving the left internal carotid artery, estimated at 80%. Staging PET/CT on 07/23/2019 showed intense uptake at the left floor of the mouth with the osseous involvement of the mandible. There was left submandibular adenopathy with extracapsular extension into the submandibular gland. There was borderline upper abdominal adenopathy without F DG uptake, presumed to be reactive. There was no evidence of distant metastatic disease. She then underwent stenting of the left carotid artery, causing a delay in her definitive surgery. As such, it was opted to give her neoadjuvant chemotherapy with weekly carboplatin and paclitaxel in combination with Erbitux. She was not able to complete the Erbitux because of a hypersensitivity reaction to the test dose, but she did complete 1 cycle of treatment with carboplatin/paclitaxel on 08/12/2019. On 09/01/2019 she underwent segmental mandibulectomy, floor of mouth resection, neck dissection, tracheostomy, and pectoralis flap reconstruction. She also had a PEG tube placed. She tolerated the surgery well. Pathology showed grade 2 squamous cell carcinoma involving the left lower gingiva. The tumor measured 2.5 cm with a 3 mm depth of invasion. There was superficial direct invasion through the cortex of the mandible. There was evidence of cystic metastatic squamous cell carcinoma involving submandibular soft tissue measuring 4.5 cm, presumed to be extranodal. The closest surgical margin was 3 mm. There was involvement in 3/12 lymph nodes, the largest measuring 0.5 cm. Extranodal extension was not identified. Pathologic staging was pT4a, pN2b, M1. Her postoperative course was complicated by delayed healing of her pectoralis wound and by a fall at home resulting in a right femoral neck fracture. She underwent bipolar arthroplasty of the right hip on 11/15/2019. At discharge she initially went to [facility] for further rehabilitation, but she was then able to return to her own home. She was seen for follow-up here on 12/23/2019. Due to the lymph node involvement and the metastatic involvement in the left submandibular soft tissue, she was recommended to have postoperative adjuvant radiation. I recommended against concurrent chemotherapy due to her multiple comorbidities and marginal performance status. She completed radiation on 03/07/2020 to a total dose of 6000 cGy administered in 30 fractions. The treatment field included the oral cavity and both sides of the neck. A restaging PET/CT on 07/01/2020 showed activity in the left mandibular resection bed consistent with postsurgical inflammation. There also appeared to be inflammatory activity at the left hyoid. A region of discrete increased activity in the left cervical level IV soft tissue measuring 8 mm, SUV 5.0, was felt to be suspicious for recurrence. Also noted on that study were bilateral interstitial lung infiltrates or fibrosis. There were no other areas of significant FDG uptake. She had surgical oncology follow-up with [facility] on 07/21/2020. She underwent biopsy of the left cervical lymph node on 07/27/2020. Pathology showed moderately differentiated squamous cell carcinoma, focally necrotic. After further discussion with Dr. Chacon, it was recommended that she return here for consideration of systemic therapy, as it was felt that she was not medically suitable for an extensive surgical resection. Her other medical illnesses, in addition to the sarcoidosis, include hypertension, hyperlipidemia, atrial fibrillation and peripheral neuropathy. She has a history of diverticulitis, and she also has a history of anxiety/depression. She is a non-smoker. She is seen now for a follow-up visit. Following completion of her radiation, she had continued follow-up at wound care clinic for open wounds on her left cheek and at the pectoralis donor site in the left chest. These have been gradually healing. She continues to have limited activity. She is able to ambulate with a walker, she is still getting physical therapy at home. Her ECOG score is 2. Her appetite has been okay. She is able to swallow adequately. Her weight, though, is down 10 pounds since December. She does not have fever or night sweats. She has not complained of cough and she has not had shortness of breath or chest pain. She currently has no GI or complaints. She has been having pain in her other hip, but not real bad. She does not complain of headache. She sometimes has dizziness. She has no numbness/paresthesia or other focal neurologic symptoms. Her anxiety/depression is managed adequately with sertraline. Medications: Benadryl Allergy 1 Tablet (of 25 mg) Oral daily, Carvedilol 1 Tablet (of 6.25 mg) Oral daily, Clopidogrel Bisulfate 1 Tablet (of 75 mg) Oral daily, Hydrochlorothiazide 1 (12.5 mg) Tablet Oral daily, Nystatin Suspension Mouth/throat PRN, Salagen (5 mg) Tablet Oral t.i.d., Zoloft 1 (100 mg) Tablet Oral daily Allergies: PCN-Anaphylaxsis and Sulfa. Vital Signs: Performed on Sep 06, 2020 14:46 Height - 63.00 in Weight - 111.6 lbs (LOW) BSA - 1.51 sq.m BMI - 19.77 Temperature - 97.0 F (LOW) Pulse - 91 /min Respiration - 16 /min BP - 115/70 mm(hg) O2 Sat - 97 % Pain - 0 Physical Examination: Constitutional - She appears somewhat weak generally, Eyes - Sclerae nonicteric. Conjunctivae clear, ENMT - Mouth is dry. There are no lesions noted in the oral cavity. There is a small open wound on the left cheek, Neck - There is surgical deformity and there is induration on both sides of the neck. There is no discrete mass palpable, Hematologic/Lymphatic - No cervical, clavicular, or axillary adenopathy noted, Respiratory - Lungs are clear with good air movement bilaterally, Cardiovascular - Heart rhythm is regular. There is no murmur, gallop, or rub noted, Chest - There is an additional open wound at the donor site in the left chest , Abdomen - Soft. Liver and spleen are not enlarged. There is no abdominal mass or ascites noted and there is no inguinal adenopathy, Extremities - No edema, Neurologic - No focal neurologic deficits noted. Lab/Imaging: Test performed on Sep 06, 2020 13:02 Sodium 135 mmol/L TSH 5.38 uIU/mL Potassium 3.8 mmol/L Chloride 95 mmol/L CO2 32 mmol/L Anion Gap 11.8 BUN 20 mg/dL Creatinine 0.4 mg/dL Cr Clearance (Est) 91.14 mL/min Glucose 106 mg/dL Osmolality - Calculated 283 mOsm/kg Calcium 9.1 mg/dL Protein, Total 7.4 g/dL Albumin 4.1 g/dL Globulin 3.3 g/dL Bilirubin, Total 0.6 mg/dL ALT (SGPT) 20 U/L AST (SGOT) 23 U/L Alkaline Phosphatase 145 IU/L WBC 7.1 10 3/uL RBC 4.07 10 6/uL HGB 12.4 g/dL HCT 37.8 % MCV 92.9 fL MCH 30.5 pg MCHC 32.8 g/dL RDW 12.3 % Platelet Count 281 10 3/cmm MPV 9.7 fL Neutrophils 5.13 10 3/uL Lymphocytes 0.7 10 3/uL Monocytes 0.9 10 3/uL Eosinophils 0.2 10 3/uL Basophils 0.0 10 3/uL Neutrophil % 72.8 % Lymphocyte % 10.1 % Monocyte % 13.3 % Eosinophil % 2.8 % Basophils % 0.4 % NRBC % 0 % Problem List: 1. 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 She now has biopsy proven recurrence in a left level IV cervical lymph node. 2. Hypertension. 3. Hyperlipidemia. 4. Atrial fibrillation. 5. Carotid artery stenosis requiring stenting of the left carotid artery. 6. Sarcoidosis. 7. Peripheral neuropathy. 8. History of diverticulitis. 9. History of traumatic right femoral neck fracture requiring bipolar right hip arthroplasty on 11/15/2019. 10. Anxiety/depression. 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 Due to surgery being delayed for stenting of the left carotid artery, she began neoadjuvant chemotherapy with weekly Erbitux, carboplatin, and paclitaxel. Treatment was limited to 1 cycle of carboplatin/paclitaxel. Erbitux was not administered due to a hypersensitivity reaction to the test dose. She then underwent segmental mandibulectomy, floor of mouth resection, neck dissection, tracheostomy, and pectoralis flap reconstruction on 09/01/2019. She also underwent placement of PEG tube. Pathologic staging was pT4a, pN2b, M1. Her postoperative course was complicated by delayed healing of her pectoralis wound and by a fall at home resulting in a right femoral neck fracture. She underwent bipolar arthroplasty of the right hip on 11/15/2019. She was seen for follow-up here on 12/23/2019. Due to the lymph node involvement and the metastatic involvement in the left submandibular soft tissue, she was recommended to have postoperative adjuvant radiation. Concurrent chemotherapy was not recommended due to her multiple comorbidities and marginal performance status. She completed radiation on 03/07/2020 to a total dose of 6000 cGy administered in 30 fractions. The treatment field included the oral cavity and both sides of the neck. A restaging PET/CT on 07/01/2020 showed a region of discrete increased activity in the left cervical level IV soft tissue measuring 8 mm, SUV 5.0, was felt to be suspicious for recurrence. There were no other areas of suspicious FDG uptake. Biopsy of the left cervical lymph node on 07/27/2020 confirmed moderately differentiated squamous cell carcinoma, focally necrotic. After further discussion with Dr. Chacon, it was recommended that she return here for consideration of systemic therapy, as it was felt that she was not medically suitable for an extensive surgical resection. At this point she continues to have somewhat marginal performance status. She has had some weight loss since December, but she does appear to be maintaining adequate nutritional intake without the PEG tube. She has had ongoing issues with wound healing, for which she has continued follow-up at the wound care clinic. Again, with her underlying comorbidities and marginal performance status, she is not medically suitable for combination chemotherapy or chemotherapy/immunotherapy. However, a trial of immunotherapy with pembrolizumab as a single modality would be feasible, as I would expect it to be tolerable in her situation and there would be potential benefit in controlling her disease. I did review potential side effects, which tend to be immune mediated. The treatment will be administered peripherally, as in her situation I think it would be best to avoid using a central catheter. Prior to starting treatment, she will be scheduled for restaging CT scans of the neck and chest, as she has not had any imaging since the PET/CT in June. She will then return to begin treatment pending verification of insurance coverage. Signed By: Joao Coley M.D. <<Signature on File>>
== END 2020-09-06 12:50 | disposition home or self-care (01) ==
LOC: ONCMED 12:53
PROVIDERS: PCP Family Medicine; Visit Provider Internal Medicine Medical Oncology
DX: C03.1 Malignant neoplasm of lower gum (principal); C77.0 Secondary and unspecified malignant neoplasm of lymph nodes of head, face and neck; D86.9 Sarcoidosis, unspecified; E83.52 Hypercalcemia; I10 Essential (primary) hypertension; E78.5 Hyperlipidemia, unspecified; I48.20 Chronic atrial fibrillation, unspecified; I65.23 Occlusion and stenosis of bilateral carotid arteries; G62.9 Polyneuropathy, unspecified; K57.92 Diverticulitis of intestine, part unspecified, without perforation or abscess without bleeding; Z96.641 Presence of right artificial hip joint; F41.9 Anxiety disorder, unspecified; F32.9 Major depressive disorder, single episode, unspecified; Z79.899 Other long term (current) drug therapy
CPT/HCPCS: 80053; 84443; 85025; 99215

== ENCOUNTER 2020-09-08 08:35 | Outpatient (CLI) | payer MEDICARE, OTHER, SELFPAY ==
--- NOTE | 2020-09-08 08:42 | CT_ITS ---
WS: [id number] CT NECK TECHNIQUE: Contrast-enhanced CT of the neck with coronal and sagittal reformatted images. CLINICAL INFORMATION: GINGIVAL CANCER COMPARISON: PET/CT July 01, 2020. CT neck May 09, 2020 DLP: 1153.[address] scans at [facility] use at least one of these dose optimization techniques: automat ed exposure control; mA and/or kV adjustment per patient size (includes targeted exams where dose is matched to clinical indication); or iterative reconstruction. FINDINGS: Prior postoperative changes partial left mandibulectomy with left radical neck dissection. Extensive reconstruction flap left neck. Peripherally enhancing low-attenuation fluid collections are new since the prior examination involving the reconstructive flap and deep left neck soft tissues. Associated occlusion and peripheral enhancement involving the left internal jugular vein with thrombophlebitis o r tumor thrombus. Associated abscess or necrotic tumor with heterogeneous peripheral enhancement in the deep soft tissu es deep to the sternomastoid at the level of the thyroid cartilage measuring 2.1 x 1.6 x 2.6 cm. Larg er flap low-attenuation abscess measures 1.9 x 2.9 x 2.8 cm. Additional peripheral enhancing abscess or necrotic tumor abuts the left hyoid bone measuring 1.3 x 1.1 cm. The 2 smaller collections in part icular suspicious for necrotic tumor. Associated inflammatory stranding and edema involving the left flap reconstruction with left paraphar yngeal soft tissue edema. Mild left to right mass effect. No high-grade airway narrowing. Edema exten ds the level of the false vocal cords. Small amount of retropharyngeal edema.Left carotid stent. Images are degraded at the tongue base due to extensive beam hardening artifact from hardware. Normal glottis and subglottic airway. Right thyroid nodule measuring 8 mm. Mastoid air cells are well aerated. Paranasal sinuses are well aerated. Partially visualized intracra nial contents are unremarkable. Fibrosis the lung apices. Advanced spondylitic changes cervical spine with slight anterolisthesis C3 on C4, C4 on C5 and C5 on C6. Disc space narrowing worse at C6-7. CT/CT neck w con* [id number] IMPRESSION: 1. Extensive prior postoperative changes left partial mandibulectomy with exte nsive flap reconstruction and radical neck dissection. 2. New peripheral enhancing fluid collection consistent with abscess in the rea perficial flap reconstruction measuring 1.9 x 2.9 x 2.8 cm. 3. 2 smaller heterogeneous peripheral enhancing low-attenuation collections in the left lower neck and along the right hyoid bone. Associated occluded periph eral enhancing internal jugular vein. Findings likely represent necrotic tumor and/or abscess with tumor thrombus or thrombophlebitis. 4. Edema in the left neck soft tissues extending to the left pharynx. Soft tis valeri edema with left to right mass effect on the pharynx and hypopharynx. No hig h-grade narrowing. Small amount of retropharyngeal edema. 5. Normal vocal cords. Normal subglottic airway. 6. Small right thyroid nodule measuring 8 mm unchanged. Notified Joao Coley MD at 09/08/2020 10:20 AM.
[2020-09-08] MEDS: iohexol 300 mg/mL 100 mL Btl IV (09:11)
== END 2020-09-08 08:36 | disposition home or self-care (01) ==
PROVIDERS: PCP Family Medicine; Visit Provider Internal Medicine Medical Oncology
DX: C03.1 Malignant neoplasm of lower gum (principal); E04.1 Nontoxic single thyroid nodule; R60.0 Localized edema
CPT/HCPCS: 70491; Q9967

== ENCOUNTER 2020-09-11 08:18 | Outpatient (CLI) | payer MEDICARE, OTHER, SELFPAY ==
--- NOTE | 2020-09-11 08:24 | CT_ITS ---
WS: [id number] CT CHEST WITH INTRAVENOUS CONTRAST HISTORY: Recurrent gingival cancer. TECHNIQUE: Contiguous 5 mm axial imaging performed on the thorax. Coronal and sagittal reformats are submitted. All CT scans at [facility] use at least one of these dose optimization techniq ues: automated exposure control; mA and/or kV adjustment per patient size (includes targeted exams wh ere dose is matched to clinical indication); or iterative reconstruction. CONTRAST: Omnipaque 300; 95 mL IV. DLP: 539.9 mGycm COMPARISON: 11/25/2019, 07/17/2015 Lungs and central airway: Hyperexpanded lungs with chronic emphysematous peripheral interstitial thic kening with reticulations and fibrosis. Peripheral interstitial thickening is most consistent with pu lmonary fibrosis and chronic interstitial lung disease. No increasing area of consolidation or nodula rity. Pleura: Normal. No pleural effusion. Heart and pericardium: Normal size heart with no pericardial effusion. Mediastinum and litzy: Small benign-appearing and stable lymph nodes since 11/25/2019. Vessels: Mild atherosclerosis aorta. Pulmonary artery size is normal. Chest wall and lower neck: Peripherally enhancing low-attenuation mass centered in the LEFT lower nec k in the supraclavicular region measures 14 x 20 mm. Previously described on a recent neck CT is prob ably a necrotic lymph node. Postsurgical changes are noted within the soft tissues over the LEFT lowe r neck and chest wall. Prior LEFT mastectomy. Upper abdomen: Visualized liver and adrenal glands are negative. There are small celiac axis lymph no ashlie measuring up to 8 mm which were present on 11/25/2019 without increase in size or number. These we re negative on the PET/CT. Osseous structures: Degenerative changes in the thoracic spine. Loss of disc space with osteophytes. No osteoblastic lesions. There is extensive degeneration throughout the spine. CT/CT chest w con* [id number] IMPRESSION: 1. Chronic emphysema with pulmonary fibrosis and chronic interstitial lung dis ease. No increasing soft tissue nodules throughout the chest. No metastatic les ions identified. 2. Small stable lymph nodes in the mediastinum and at the celiac axis. 3. Necrotic peripherally enhancing mass which is probably a lymph node in the LEFT supraclavicular region was described also on the neck CT of 09/08/2020.
[2020-09-11] MEDS: iohexol 300 mg/mL 100 mL Btl IV (08:43)
== END 2020-09-11 08:19 | disposition home or self-care (01) ==
PROVIDERS: PCP Family Medicine; Visit Provider Internal Medicine Medical Oncology
DX: C03.1 Malignant neoplasm of lower gum (principal); J43.9 Emphysema, unspecified; J84.10 Pulmonary fibrosis, unspecified; R22.1 Localized swelling, mass and lump, neck
CPT/HCPCS: 71260; Q9967

== ENCOUNTER 2020-09-14 05:49 | Outpatient (CLI) | payer MEDICARE, OTHER, SELFPAY ==
[2020-09-14] MEDS: sodium chloride 0.9% 250 ML 125 ML IV (11:45)
--- NOTE | 2020-10-02 13:57 | ONC FU_ITS ---
[facility] Patient Note Patient: Lian Posada Unit #: [id number]: 1940 Dictated By: Audelia WalkerDate of Visit: September 14, 2020 Onc MED Follow-Up/Prog Note Chief Complaint: Gingival cancer. 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 She has previously been treated here for sarcoidosis. She had then presented with pain in the left mandible following a dental extraction in January 2019. It had continued to worsen despite several rounds of antibiotic therapy. By June 2019 she had developed a mass on the left side of the neck. She was seen by Dr. Tobias, and she was noted to have a lesion involving the left lower gingiva. CT of the neck showed a heterogeneously enhancing mass with central necrosis involving the left submandibular space with mass-effect in the anterior aspect of the submandibular gland. Atherosclerotic changes were noted in the carotid bulb bilaterally. FNA biopsy of the gingival lesion showed keratosis with moderate atypia and foci suspicious for well-differentiated invasive squamous cell carcinoma. FNA biopsy of the left neck mass showed necroinflammatory changes with rare cells suspicious for metastatic carcinoma. She was then seen for further management by Dr. Sherry Chacon in [place], [place], and she was recommended to undergo definitive surgery. However, her further evaluation with CT angiogram of the neck on 07/14/2019 showed severe stenosis involving the left internal carotid artery, estimated at 80%. Staging PET/CT on 07/23/2019 showed intense uptake at the left floor of the mouth with the osseous involvement of the mandible. There was left submandibular adenopathy with extracapsular extension into the submandibular gland. There was borderline upper abdominal adenopathy without F DG uptake, presumed to be reactive. There was no evidence of distant metastatic disease. She then underwent stenting of the left carotid artery, causing a delay in her definitive surgery. As such, it was opted to give her neoadjuvant chemotherapy with weekly carboplatin and paclitaxel in combination with Erbitux. She was not able to complete the Erbitux because of a hypersensitivity reaction to the test dose, but she did complete 1 cycle of treatment with carboplatin/paclitaxel on 08/12/2019. On 09/01/2019 she underwent segmental mandibulectomy, floor of mouth resection, neck dissection, tracheostomy, and pectoralis flap reconstruction. She also had a PEG tube placed. She tolerated the surgery well. Pathology showed grade 2 squamous cell carcinoma involving the left lower gingiva. The tumor measured 2.5 cm with a 3 mm depth of invasion. There was superficial direct invasion through the cortex of the mandible. There was evidence of cystic metastatic squamous cell carcinoma involving submandibular soft tissue measuring 4.5 cm, presumed to be extranodal. The closest surgical margin was 3 mm. There was involvement in 3/12 lymph nodes, the largest measuring 0.5 cm. Extranodal extension was not identified. Pathologic staging was pT4a, pN2b, M1. Her postoperative course was complicated by delayed healing of her pectoralis wound and by a fall at home resulting in a right femoral neck fracture. She underwent bipolar arthroplasty of the right hip on 11/15/2019. At discharge she initially went to [facility] for further rehabilitation, but she was then able to return to her own home. She was seen for follow-up here on 12/23/2019. Due to the lymph node involvement and the metastatic involvement in the left submandibular soft tissue, she was recommended to have postoperative adjuvant radiation. Dr Coley recommended against concurrent chemotherapy due to her multiple comorbidities and marginal performance status. She completed radiation on 03/07/2020 to a total dose of 6000 cGy administered in 30 fractions. The treatment field included the oral cavity and both sides of the neck. A restaging PET/CT on 07/01/2020 showed activity in the left mandibular resection bed consistent with postsurgical inflammation. There also appeared to be inflammatory activity at the left hyoid. A region of discrete increased activity in the left cervical level IV soft tissue measuring 8 mm, SUV 5.0, was felt to be suspicious for recurrence. Also noted on that study were bilateral interstitial lung infiltrates or fibrosis. There were no other areas of significant FDG uptake. She had surgical oncology follow-up with [facility] on 07/21/2020. She underwent biopsy of the left cervical lymph node on 07/27/2020. Pathology showed moderately differentiated squamous cell carcinoma, focally necrotic. After further discussion with Dr. Chacon, it was recommended that she return here for consideration of systemic therapy, as it was felt that she was not medically suitable for an extensive surgical resection. Her other medical illnesses, in addition to the sarcoidosis, include hypertension, hyperlipidemia, atrial fibrillation and peripheral neuropathy. She has a history of diverticulitis, and she also has a history of anxiety/depression. She is a non-smoker. Mrs Posada was seen for a follow-up visit by Dr Coley on September 06, 2020. Following completion of her radiation, she had continued follow-up at wound care clinic for open wounds on her left cheek and at the pectoralis donor site in the left chest. These have been gradually healing. Dr. Coley had recommended restaging as her last PET/CT was in June 2020. His current plan is single agent pembrolizumab as she is not medically suitable for combination chemotherapy or chemo/immunotherapy. Restaging CT of the neck with contrast from September 08, 2020 reported extensive prior postoperative changes in the left parietal mandibulectomy with extensive flap reconstruction and radical neck dissection. There was a new peripheral enhancing fluid collection consistent with an abscess in the superficial flap reconstruction measuring 1.9 x 2.9 x 2.8 cm. 2 smaller heterogeneous peripheral enhancing low-attenuation collections in the lower left jaw and along the right hyoid bone. Associated occluded peripheral enhancing internal jugular vein. Findings likely represent necrotic tissue and/or abscess with tumor thrombus or thrombophlebitis. Edema in the left neck soft tissues extending to the left pharynx. Soft tissue edema with left to right mass-effect on the pharynx and hypopharynx. No high-grade narrowing. Small amount of retropharyngeal edema. Normal vocal cords. Normal subglottic airway. Small right thyroid nodule measuring 8 mm which was unchanged. Her CT of the chest with contrast from September 11, 2020 reported chronic emphysema with pulmonary fibrosis and chronic interstitial lung disease. No increasing soft tissue nodules throughout the chest. No metastatic lesions identified. Stable small lymph nodes in the mediastinum and at the celiac axis. Necrotic peripherally enhancing mass which is probably a lymph node in the left supraclavicular region which is also described on the neck CT from 09/08/2020. Mrs. Posada is here today to begin her first cycle of single agent pembrolizumab. Her current plan is to receive treatment every 3 weeks. She is accompanied by her daughter today. Mrs. Gandhi denies any new concerns. She denies any fever or chills. She has had no mouth sores sore throat or new difficulty swallowing. She denies any skin rashes or lesions. She denies any cough or hemoptysis. She denies any urinary or bowel concerns. She denies any new pain. She states that her eating/nutrition is about the same for her. It has not declined any since her last visit here. She is following with wound care and last saw Lee Ann Suazo NP about 2 weeks ago . They state that she has been on clindamycin for the presumed abscess. Her bottle indicates is 300 mg 3 times a day. She states that she is using Salagen for dry mouth and this is helping some as well. Her ECOG is 1. Past Medical History: Anxiety/depression Atrial fibrillation Carotid stenosis History of diverticulitis Hyperlipidemia Hypertension Peripheral neuropathy Sarcoidosis Past Surgical History: Bladder tuck Hysterectomy/bilateral salpingectomy-oophorectomy Left breast biopsy for benign disease Peg tube placement Tonsillectomy Covid vaccine #2 in 2020 Covid vaccine #1 in 2019 Bipolar right hip arthroplasty in 2019 Left hemimandibulectomy, floor of mouth resection, neck dissection, and reconstruction in 2019 Tracheostomy in 2019 Left carotid stent in 2019 Allergies: PCN-Anaphylaxsis and Sulfa. Medications: Benadryl Allergy 1 Tablet (of 25 mg) Oral daily Carvedilol 1 Tablet (of 6.25 mg) Oral daily Clopidogrel Bisulfate 1 Tablet (of 75 mg) Oral daily Hydrochlorothiazide 1 (12.5 mg) Tablet Oral daily Nystatin Suspension Mouth/throat PRN Salagen (5 mg) Tablet Oral t.i.d. Zoloft 1 (100 mg) Tablet Oral daily Family History: Ms. Posada's mother at age 75: cancer history consists of cancer. Ms. Posada's father at age 75: coronary artery disease. Father with heart disease at age 75. Mother of colon cancer at age 75. A brother had Parkinson's disease. Social History: Ms. Posada is and she is retired. Ms. Posada has never smoked. She is a non-smoker. She has just occasional alcohol use. Review Of Symptoms: <See Above> Vital Signs: Performed on September 14, 2020 12:25 Height - 63.00 in Temperature - 98.8 F Pulse - 66 /min Respiration - 18 /min BP - 124/72 mm(hg) O2 Sat - 96 % Pain - 0 Performed on September 14, 2020 09:55 Height - 63.00 in Weight - 111.4 lbs (LOW) BSA - 1.51 sq.m BMI - 19.73 Temperature - 97.9 F (LOW) Pulse - 90 /min Respiration - 18 /min BP - 116/65 mm(hg) O2 Sat - 96 % Pain - 0 Fatigue - 5,2 - Ambulatory/capable of all self-care, unable to perform any work activities. Up and about more than 50% of waking hours. (ECOG) Physical Examination: Constitutional Alert, oriented, no acute distress. Skin pink, warm and dry. Head Normocephalic; atraumatic. Eyes Conjunctivae and sclerae are clear and without icterus. Pupils are reactive and equal. ENMT NO oral exudates but moderate redness noted in oral cavity-no lesions at present. Neck Left neck/jaw line noted to have mild-moderated Erythema. There is no current lesion or exudate. I see no oral lesions inside the mouth either. Hematologic/Lymphatic No petechiae or purpura. No tender or palpable lymph nodes in the cervical or supraclavicular areas. Respiratory Lungs are clear to auscultation without rhonchi or wheezing. Cardiovascular Regular rate and rhythm of heart without murmurs,clicks, gallops or rubs. Abdomen Non-tender, non-distended, no masses or ascites. Good bowel sounds noted in all quads. No guarding or rebound tenderness. No pulsatile masses. Back/Spine Non-tender to palpation. Extremities No visible deformities, no cyanosis, clubbing or edema. Musculoskeletal No tenderness or swelling, normal range of motion without obvious weakness. Integumentary No rashes or lesions. Neurologic No sensory or motor deficits, normal cerebellar function, normal gait. Psychiatric Alert and oriented times three. Coherent speech. Verbalizes understanding of our discussions today. Laboratory:Test performed on September 21, 2020 08:47 Sodium 133 mmol/L Potassium 3.6 mmol/L Chloride 96 mmol/L CO2 30 mmol/L Anion Gap 10.6 BUN 18 mg/dL Creatinine 0.4 mg/dL Cr Clearance (Est) 89.6700 mL/min Glucose 141 mg/dL Osmolality - Calculated 280 mOsm/kg Calcium 9.0 mg/dL Protein, Total 7.3 g/dL Albumin 3.7 g/dL Globulin 3.6 g/dL Bilirubin, Total 0.4 mg/dL ALT (SGPT) 16 U/L AST (SGOT) 22 U/L Alkaline Phosphatase 137 IU/L WBC 7.2 10 3/uL RBC 4.08 10 6/uL HGB 12.1 g/dL HCT 36.9 % MCV 90.4 fL MCH 29.7 pg MCHC 32.8 g/dL RDW 12.2 % Platelet Count 340 10 3/cmm MPV 9.0 fL Neutrophils 5.57 10 3/uL Lymphocytes 0.6 10 3/uL Monocytes 0.8 10 3/uL Eosinophils 0.2 10 3/uL Basophils 0.0 10 3/uL Neutrophil % 77.6 % Lymphocyte % 7.9 % Monocyte % 10.7 % Eosinophil % 3.1 % Basophils % 0.4 % NRBC % 0 % Test performed on Sep 06, 2020 13:02 TSH 5.38 uIU/mL Impression: 1. 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 She now has biopsy proven recurrence in a left level IV cervical lymph node. 2. Hypertension. 3. Hyperlipidemia. 4. Atrial fibrillation. 5. Carotid artery stenosis requiring stenting of the left carotid artery. 6. Sarcoidosis. 7. Peripheral neuropathy. 8. History of diverticulitis. 9. History of traumatic right femoral neck fracture requiring bipolar right hip arthroplasty on 11/15/2019. 10. Anxiety/depression. Plan/Problems Addressed at this Visit: 1. 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 Due to surgery being delayed for stenting of the left carotid artery, she began neoadjuvant chemotherapy with weekly Erbitux, carboplatin, and paclitaxel. Treatment was limited to 1 cycle of carboplatin/paclitaxel. Erbitux was not administered due to a hypersensitivity reaction to the test dose. She then underwent segmental mandibulectomy, floor of mouth resection, neck dissection, tracheostomy, and pectoralis flap reconstruction on 09/01/2019. She also underwent placement of PEG tube. Pathologic staging was pT4a, pN2b, M1. Her postoperative course was complicated by delayed healing of her pectoralis wound and by a fall at home resulting in a right femoral neck fracture. She underwent bipolar arthroplasty of the right hip on 11/15/2019. She was seen for follow-up here on 12/23/2019. Due to the lymph node involvement and the metastatic involvement in the left submandibular soft tissue, she was recommended to have postoperative adjuvant radiation. Concurrent chemotherapy was not recommended due to her multiple comorbidities and marginal performance status. She completed radiation on 03/07/2020 to a total dose of 6000 cGy administered in 30 fractions. The treatment field included the oral cavity and both sides of the neck. A restaging PET/CT on 07/01/2020 showed a region of discrete increased activity in the left cervical level IV soft tissue measuring 8 mm, SUV 5.0, was felt to be suspicious for recurrence. There were no other areas of suspicious FDG uptake. Biopsy of the left cervical lymph node on 07/27/2020 confirmed moderately differentiated squamous cell carcinoma, focally necrotic. After further discussion with Dr. Chacon, it was recommended that she return here for consideration of systemic therapy, as it was felt that she was not medically suitable for an extensive surgical resection. Restaging CT of the neck, chest abdomen pelvis was obtained on September 08, [address] of the chest abdomen pelvis was obtained on 09/11/2020. For details see above. A. Mrs. Posada will proceed with cycle 1 day 1 pembrolizumab 200 mg IV every 3 weeks. B. She may utilize Compazine and lorazepam as needed for antiemetics at home. C. Labs from September 06, 2020 were reviewed in detail and discussed with Ms. Posada and her daughter and a copy was given to her. WBC 7.1, hemoglobin 12.4, platelets 281,000, ANC is 5130. Potassium 3.8 random glucose 103 creatinine 0.4 LFTs are normal alk phos is 145 and her TSH is 5.238. Her weight is stable today at 111.4. D. We will call [facility] and ask to see if they could resume the lymph massage therapist. Mrs. Posada felt that this was significantly helping her in the past. 2. Follow-up plan A. She will return in 1 week for day follow-up with CBC CMP. B. She will have interim weekly labs. C. We will plan to see her back in 3 weeks for cycle 2 pembrolizumab at which times of a CBC CMP TSH. 3. Patient education Specific side effects of immunotherapy discussed included but not limited to: Infusion reactions such as anaphylaxis, hives, shortness of breath, difficulty swallowing, fever, chills, hypotension hypertension, tremors/shakes, and anxiety amongst others ??? pneumonitis: new or worsening cough; chest pain; and shortness of breath. ??? Colitis: diarrhea or more bowel movements than usual; blood in stools or dark, tarry, sticky stools; and severe stomach area (abdomen) pain or tenderness. ??? Encephalitis: confusion, headaches, mental status changes, disorientation * hepatitis: jaundice; severe nausea or vomiting; pain on the right side of the abdomen; drowsiness; dark urine; bleeding or bruise more easily than normal. ??? nephritis and kidney failure: including decrease in the amount of urine; hematuria; lower extremity edema; and loss of appetite. ??? thyroid and pituitary changes that may include: headaches that will not go away or unusual headaches; extreme tiredness, weight gain or weight loss; changes in mood or behavior, such as decreased sex drive, irritability, or forgetfulness; dizziness or fainting; hair loss; feeling cold; constipation; and voice gets deeper. ???rash; changes in eyesight; severe or persistent muscle or joint pains; and severe muscle weakness. The majority of this visit was time spent face to face in review of plan of care, side effect identification and where to call for questions or concerns. Total time spent on Ms. Posada's care today including reviewing her records prior to her visit; discussing treatment plan and discussion of side effects and management as well as answering questions regarding the plan and her disease and including post visit documentation was 60 minutes. Signed By: Audelia Walker-BRENDA, AOCNP Joao Coley MD <<Signature on File>>
== END 2020-09-14 05:50 | disposition home or self-care (01) ==
LOC: ONCMED 05:53
PROVIDERS: PCP Family Medicine; Visit Provider Nurse Practitioner
DX: Z51.12 Encounter for antineoplastic immunotherapy (principal); C03.1 Malignant neoplasm of lower gum; C77.0 Secondary and unspecified malignant neoplasm of lymph nodes of head, face and neck; D86.9 Sarcoidosis, unspecified; E83.52 Hypercalcemia; F41.9 Anxiety disorder, unspecified; F32.9 Major depressive disorder, single episode, unspecified; I48.20 Chronic atrial fibrillation, unspecified; I65.23 Occlusion and stenosis of bilateral carotid arteries; E78.5 Hyperlipidemia, unspecified; I10 Essential (primary) hypertension; G62.9 Polyneuropathy, unspecified; Z79.899 Other long term (current) drug therapy
CPT/HCPCS: 96413; 99215; J7050; J9271

== ENCOUNTER 2020-09-21 05:55 | Outpatient (CLI) | payer MEDICARE, OTHER, SELFPAY ==
[2020-09-21 10:01] LABS: Basophils % 0.4 %; Eosinophils # 0.2 10^3/uL (0.0-0.8); Eosinophils % 3.1 %; Hematocrit 36.9 % (37.0-47.0); Hemoglobin 12.1 g/dL (11.5-15.3); Lymphocytes # 0.6 10^3/uL (0.8-4.8); Lymphocytes % 7.9 %; Mean Corpuscular HGB Conc 32.8 g/dL (30.0-36.0); Mean Corpuscular Hemoglobin 29.7 pg (28.0-34.0); Mean Corpuscular Volume 90.4 fL (81-99); Monocytes # 0.8 10^3/uL (0.2-0.9); Monocytes % 10.7 %; Neutrophils # 5.57 10^3/uL (1.8-7.7); Neutrophils % 77.6 %; Nucleated Red Blood Cells % 0 %; Platelet Count 340 10^3/cmm (130-400); Red Blood Count 4.08 10^6/uL (4.1-5.3); Red Cell Distribution Width 12.2 % (12.1-15.1); White Blood Count 7.2 10^3/uL (4.0-10.0)
[2020-09-21 10:22] LABS: Alanine Aminotransferase 16 U/L (0-33); Albumin Level 3.7 g/dL (3.5-5.2); Alkaline Phosphatase 137 IU/L (35-105); Anion Gap 10.6 (5-19); Aspartate Amino Transferase 22 U/L (0-32); Blood Urea Nitrogen 18 mg/dL (8-23); Carbon Dioxide 30 mmol/L (22-29); Chloride 96 mmol/L (98-107); Globulin 3.6 g/dL (1.3-4.6); Glucose 141 mg/dL (65-115); Osmolality Calculated 280 mOsm/kg (285-295); Potassium 3.6 mmol/L (3.5-5.1); Sodium 133 mmol/L (136-145); Total Bilirubin 0.4 mg/dL (0.15-1.2); Total Protein 7.3 g/dL (6.6-8.7)
--- NOTE | 2020-10-02 14:17 | ONC FU_ITS ---
[facility] Patient Note Patient: Lian Posada Unit #: [id number]: 1940 Dictated By: Audelia WalkerDate of Visit: September 21, 2020 Onc MED Follow-Up/Prog Note Chief Complaint: Gingival cancer. 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 She has previously been treated here for sarcoidosis. She had then presented with pain in the left mandible following a dental extraction in January 2019. It had continued to worsen despite several rounds of antibiotic therapy. By June 2019 she had developed a mass on the left side of the neck. She was seen by Dr. Tobias, and she was noted to have a lesion involving the left lower gingiva. CT of the neck showed a heterogeneously enhancing mass with central necrosis involving the left submandibular space with mass-effect in the anterior aspect of the submandibular gland. Atherosclerotic changes were noted in the carotid bulb bilaterally. FNA biopsy of the gingival lesion showed keratosis with moderate atypia and foci suspicious for well-differentiated invasive squamous cell carcinoma. FNA biopsy of the left neck mass showed necroinflammatory changes with rare cells suspicious for metastatic carcinoma. She was then seen for further management by Dr. Sherry Chacon in [place], [place], and she was recommended to undergo definitive surgery. However, her further evaluation with CT angiogram of the neck on 07/14/2019 showed severe stenosis involving the left internal carotid artery, estimated at 80%. Staging PET/CT on 07/23/2019 showed intense uptake at the left floor of the mouth with the osseous involvement of the mandible. There was left submandibular adenopathy with extracapsular extension into the submandibular gland. There was borderline upper abdominal adenopathy without F DG uptake, presumed to be reactive. There was no evidence of distant metastatic disease. She then underwent stenting of the left carotid artery, causing a delay in her definitive surgery. As such, it was opted to give her neoadjuvant chemotherapy with weekly carboplatin and paclitaxel in combination with Erbitux. She was not able to complete the Erbitux because of a hypersensitivity reaction to the test dose, but she did complete 1 cycle of treatment with carboplatin/paclitaxel on 08/12/2019. On 09/01/2019 she underwent segmental mandibulectomy, floor of mouth resection, neck dissection, tracheostomy, and pectoralis flap reconstruction. She also had a PEG tube placed. She tolerated the surgery well. Pathology showed grade 2 squamous cell carcinoma involving the left lower gingiva. The tumor measured 2.5 cm with a 3 mm depth of invasion. There was superficial direct invasion through the cortex of the mandible. There was evidence of cystic metastatic squamous cell carcinoma involving submandibular soft tissue measuring 4.5 cm, presumed to be extranodal. The closest surgical margin was 3 mm. There was involvement in 3/12 lymph nodes, the largest measuring 0.5 cm. Extranodal extension was not identified. Pathologic staging was pT4a, pN2b, M1. Her postoperative course was complicated by delayed healing of her pectoralis wound and by a fall at home resulting in a right femoral neck fracture. She underwent bipolar arthroplasty of the right hip on 11/15/2019. At discharge she initially went to [facility] for further rehabilitation, but she was then able to return to her own home. She was seen for follow-up here on 12/23/2019. Due to the lymph node involvement and the metastatic involvement in the left submandibular soft tissue, she was recommended to have postoperative adjuvant radiation. Dr Coley recommended against concurrent chemotherapy due to her multiple comorbidities and marginal performance status. She completed radiation on 03/07/2020 to a total dose of 6000 cGy administered in 30 fractions. The treatment field included the oral cavity and both sides of the neck. A restaging PET/CT on 07/01/2020 showed activity in the left mandibular resection bed consistent with postsurgical inflammation. There also appeared to be inflammatory activity at the left hyoid. A region of discrete increased activity in the left cervical level IV soft tissue measuring 8 mm, SUV 5.0, was felt to be suspicious for recurrence. Also noted on that study were bilateral interstitial lung infiltrates or fibrosis. There were no other areas of significant FDG uptake. She had surgical oncology follow-up with [facility] on 07/21/2020. She underwent biopsy of the left cervical lymph node on 07/27/2020. Pathology showed moderately differentiated squamous cell carcinoma, focally necrotic. After further discussion with Dr. Chacon, it was recommended that she return here for consideration of systemic therapy, as it was felt that she was not medically suitable for an extensive surgical resection. Her other medical illnesses, in addition to the sarcoidosis, include hypertension, hyperlipidemia, atrial fibrillation and peripheral neuropathy. She has a history of diverticulitis, and she also has a history of anxiety/depression. She is a non-smoker. Mrs Posada was seen for a follow-up visit by Dr Coley on September 06, 2020. Following completion of her radiation, she had continued follow-up at wound care clinic for open wounds on her left cheek and at the pectoralis donor site in the left chest. These have been gradually healing. Dr. Coley had recommended restaging as her last PET/CT was in June 2020. His current plan is single agent pembrolizumab as she is not medically suitable for combination chemotherapy or chemo/immunotherapy. Restaging CT of the neck with contrast from September 08, 2020 reported extensive prior postoperative changes in the left parietal mandibulectomy with extensive flap reconstruction and radical neck dissection. There was a new peripheral enhancing fluid collection consistent with an abscess in the superficial flap reconstruction measuring 1.9 x 2.9 x 2.8 cm. 2 smaller heterogeneous peripheral enhancing low-attenuation collections in the lower left jaw and along the right hyoid bone. Associated occluded peripheral enhancing internal jugular vein. Findings likely represent necrotic tissue and/or abscess with tumor thrombus or thrombophlebitis. Edema in the left neck soft tissues extending to the left pharynx. Soft tissue edema with left to right mass-effect on the pharynx and hypopharynx. No high-grade narrowing. Small amount of retropharyngeal edema. Normal vocal cords. Normal subglottic airway. Small right thyroid nodule measuring 8 mm which was unchanged. Her CT of the chest with contrast from September 11, 2020 reported chronic emphysema with pulmonary fibrosis and chronic interstitial lung disease. No increasing soft tissue nodules throughout the chest. No metastatic lesions identified. Stable small lymph nodes in the mediastinum and at the celiac axis. Necrotic peripherally enhancing mass which is probably a lymph node in the left supraclavicular region which is also described on the neck CT from 09/08/2020. Mrs. Posada began her first cycle of single agent pembrolizumab on September 14, 2020. Her current plan is to receive treatment every 3 weeks. She is accompanied by her daughter today. Mrs. Posada denies any new concerns. She denies any fever or chills. She denies any hot flashes. She states her appetite is pretty good. Her energy count of comes and goes but is good for the most part . She denies any difficulty swallowing. She denies any shortness of breath orthopnea. She denies any chest discomfort or palpitations. She denies any cough or hemoptysis. She states she has not had any nausea or vomiting. She denies any lower extremity edema. States her bowels and bladder are normal for her. She has no new concerns today. She states she feels like she has tolerated the first treatment well. Her ECOG is 1. Past Medical History: Anxiety/depression Atrial fibrillation Carotid stenosis History of diverticulitis Hyperlipidemia Hypertension Peripheral neuropathy Sarcoidosis Past Surgical History: Bladder tuck Hysterectomy/bilateral salpingectomy-oophorectomy Left breast biopsy for benign disease Peg tube placement Tonsillectomy Covid vaccine #2 in 2020 Covid vaccine #1 in 2019 Bipolar right hip arthroplasty in 2019 Left hemimandibulectomy, floor of mouth resection, neck dissection, and reconstruction in 2019 Tracheostomy in 2019 Left carotid stent in 2019 Allergies: PCN-Anaphylaxsis and Sulfa. Medications: Benadryl Allergy 1 Tablet (of 25 mg) Oral daily Carvedilol 1 Tablet (of 6.25 mg) Oral daily Clopidogrel Bisulfate 1 Tablet (of 75 mg) Oral daily Hydrochlorothiazide 1 (12.5 mg) Tablet Oral daily Nystatin Suspension Mouth/throat PRN Salagen (5 mg) Tablet Oral t.i.d. Zoloft 1 (100 mg) Tablet Oral daily Family History: Ms. Posada's mother at age 75: cancer history consists of cancer. Ms. Posada's father at age 75: coronary artery disease. Father with heart disease at age 75. Mother of colon cancer at age 75. A brother had Parkinson's disease. Social History: Ms. Posada is and she is retired. Ms. Posada has never smoked. She is a non-smoker. She has just occasional alcohol use. Review Of Symptoms: <See Above> Vital Signs: Performed on September 21, 2020 12:26 Height - 63.00 in Weight - 109.8 lbs (LOW) BSA - 1.50 sq.m BMI - 19.45 Temperature - 98.9 F (HIGH) Pulse - 86 /min Respiration - 18 /min BP - 114/70 mm(hg) O2 Sat - 96 % Pain - 0,1 - No physically strenuous activity, but ambulatory and able to carry out light or sedentary work (e.g. office work, light house work). (ECOG) Physical Examination: Constitutional Alert, oriented, no acute distress. Skin pink, warm and dry. Head Normocephalic; atraumatic. Eyes Conjunctivae and sclerae are clear and without icterus. Pupils are reactive and equal. ENMT NO oral exudates but moderate redness noted in oral cavity-no lesions at present. Neck Left neck/jaw line noted to have moderated Erythema. There is no current lesion or exudate but oral hte lesion does sommen. I see no oral lesions inside the mouth either. Hematologic/Lymphatic No petechiae or purpura. No tender or palpable lymph nodes in the cervical or supraclavicular areas. Respiratory Lungs are clear to auscultation without rhonchi or wheezing. Cardiovascular Regular rate and rhythm of heart without murmurs,clicks, gallops or rubs. Abdomen Non-tender, non-distended, no masses or ascites. Good bowel sounds noted in all quads. No guarding or rebound tenderness. No pulsatile masses. Back/Spine Non-tender to palpation. Extremities No visible deformities, no cyanosis, clubbing or edema. Musculoskeletal No tenderness or swelling, normal range of motion without obvious weakness. Integumentary No rashes or lesions. Neurologic No sensory or motor deficits, normal cerebellar function, normal gait. Psychiatric Alert and oriented times three. Coherent speech. Verbalizes understanding of our discussions today. Laboratory:Test performed on September 21, 2020 08:47 Sodium 133 mmol/L Potassium 3.6 mmol/L Chloride 96 mmol/L CO2 30 mmol/L Anion Gap 10.6 BUN 18 mg/dL Creatinine 0.4 mg/dL Cr Clearance (Est) 89.6700 mL/min Glucose 141 mg/dL Osmolality - Calculated 280 mOsm/kg Calcium 9.0 mg/dL Protein, Total 7.3 g/dL Albumin 3.7 g/dL Globulin 3.6 g/dL Bilirubin, Total 0.4 mg/dL ALT (SGPT) 16 U/L AST (SGOT) 22 U/L Alkaline Phosphatase 137 IU/L WBC 7.2 10 3/uL RBC 4.08 10 6/uL HGB 12.1 g/dL HCT 36.9 % MCV 90.4 fL MCH 29.7 pg MCHC 32.8 g/dL RDW 12.2 % Platelet Count 340 10 3/cmm MPV 9.0 fL Neutrophils 5.57 10 3/uL Lymphocytes 0.6 10 3/uL Monocytes 0.8 10 3/uL Eosinophils 0.2 10 3/uL Basophils 0.0 10 3/uL Neutrophil % 77.6 % Lymphocyte % 7.9 % Monocyte % 10.7 % Eosinophil % 3.1 % Basophils % 0.4 % NRBC % 0 % Test performed on Sep 06, 2020 13:02 TSH 5.38 uIU/mL Impression: 1. 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 She now has biopsy proven recurrence in a left level IV cervical lymph node. 2. Hypertension. 3. Hyperlipidemia. 4. Atrial fibrillation. 5. Carotid artery stenosis requiring stenting of the left carotid artery. 6. Sarcoidosis. 7. Peripheral neuropathy. 8. History of diverticulitis. 9. History of traumatic right femoral neck fracture requiring bipolar right hip arthroplasty on 11/15/2019. 10. Anxiety/depression. Plan/Problems Addressed at this Visit: 1. 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 Due to surgery being delayed for stenting of the left carotid artery, she began neoadjuvant chemotherapy with weekly Erbitux, carboplatin, and paclitaxel. Treatment was limited to 1 cycle of carboplatin/paclitaxel. Erbitux was not administered due to a hypersensitivity reaction to the test dose. She then underwent segmental mandibulectomy, floor of mouth resection, neck dissection, tracheostomy, and pectoralis flap reconstruction on 09/01/2019. She also underwent placement of PEG tube. Pathologic staging was pT4a, pN2b, M1. Her postoperative course was complicated by delayed healing of her pectoralis wound and by a fall at home resulting in a right femoral neck fracture. She underwent bipolar arthroplasty of the right hip on 11/15/2019. She was seen for follow-up here on 12/23/2019. Due to the lymph node involvement and the metastatic involvement in the left submandibular soft tissue, she was recommended to have postoperative adjuvant radiation. Concurrent chemotherapy was not recommended due to her multiple comorbidities and marginal performance status. She completed radiation on 03/07/2020 to a total dose of 6000 cGy administered in 30 fractions. The treatment field included the oral cavity and both sides of the neck. A restaging PET/CT on 07/01/2020 showed a region of discrete increased activity in the left cervical level IV soft tissue measuring 8 mm, SUV 5.0, was felt to be suspicious for recurrence. There were no other areas of suspicious FDG uptake. Biopsy of the left cervical lymph node on 07/27/2020 confirmed moderately differentiated squamous cell carcinoma, focally necrotic. After further discussion with Dr. Chacon, it was recommended that she return here for consideration of systemic therapy, as it was felt that she was not medically suitable for an extensive surgical resection. Restaging CT of the neck, chest abdomen pelvis was obtained on September 08, [address] of the chest abdomen pelvis was obtained on 09/11/2020. For details see above. A. Mrs. Posada will proceed with cycle 1 day 8 pembrolizumab 200 mg IV every 3 weeks. She was treated on day 1 with single agent pembrolizumab 200 mg IV (September 14, 2020). B. She may utilize Compazine and lorazepam as needed for antiemetics at home. C. Labs from September 21, 2020 were reviewed in detail and discussed with Ms. Posada and her daughter and a copy was given to her. WBC 7.2, hemoglobin 12.1, platelets 340,000 ANC is 5600. Potassium 3.6, random glucose 141 creatinine 0.4 LFTs are normal. D. We will call [facility] and ask to see if they could resume the lymph massage and the speech pathologyist therapist. Mrs. Posada felt that this was significantly helping her in the past. 2. Follow-up plan A. She will return in 2 weeks for day follow-up with CBC CMP & TSH. She will be due for cycle 2 pembrolizumab at that time. B. She states she is leaving on a trip next week and will be gone for a few days. She is looking forward to this. She will be with her daughter. C. Mrs. Posada was encouraged to contact us in the interim if questions or problems arise. Signed By: Audelia Walker-, CNP Joao Coley MD <<Signature on File>>
--- NOTE | 2020-10-02 14:31 | ONC FU_ITS ---
[facility] Patient Note Patient: Lian Posada Unit #: [id number]: 1940 Dictated By: Audelia WalkerDate of Visit: September 21, 2020 Onc MED Follow-Up/Prog Note Chief Complaint: Gingival cancer. 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 She has previously been treated here for sarcoidosis. She had then presented with pain in the left mandible following a dental extraction in January 2019. It had continued to worsen despite several rounds of antibiotic therapy. By June 2019 she had developed a mass on the left side of the neck. She was seen by Dr. Tobias, and she was noted to have a lesion involving the left lower gingiva. CT of the neck showed a heterogeneously enhancing mass with central necrosis involving the left submandibular space with mass-effect in the anterior aspect of the submandibular gland. Atherosclerotic changes were noted in the carotid bulb bilaterally. FNA biopsy of the gingival lesion showed keratosis with moderate atypia and foci suspicious for well-differentiated invasive squamous cell carcinoma. FNA biopsy of the left neck mass showed necroinflammatory changes with rare cells suspicious for metastatic carcinoma. She was then seen for further management by Dr. Sherry Chacon in [place], [place], and she was recommended to undergo definitive surgery. However, her further evaluation with CT angiogram of the neck on 07/14/2019 showed severe stenosis involving the left internal carotid artery, estimated at 80%. Staging PET/CT on 07/23/2019 showed intense uptake at the left floor of the mouth with the osseous involvement of the mandible. There was left submandibular adenopathy with extracapsular extension into the submandibular gland. There was borderline upper abdominal adenopathy without F DG uptake, presumed to be reactive. There was no evidence of distant metastatic disease. She then underwent stenting of the left carotid artery, causing a delay in her definitive surgery. As such, it was opted to give her neoadjuvant chemotherapy with weekly carboplatin and paclitaxel in combination with Erbitux. She was not able to complete the Erbitux because of a hypersensitivity reaction to the test dose, but she did complete 1 cycle of treatment with carboplatin/paclitaxel on 08/12/2019. On 09/01/2019 she underwent segmental mandibulectomy, floor of mouth resection, neck dissection, tracheostomy, and pectoralis flap reconstruction. She also had a PEG tube placed. She tolerated the surgery well. Pathology showed grade 2 squamous cell carcinoma involving the left lower gingiva. The tumor measured 2.5 cm with a 3 mm depth of invasion. There was superficial direct invasion through the cortex of the mandible. There was evidence of cystic metastatic squamous cell carcinoma involving submandibular soft tissue measuring 4.5 cm, presumed to be extranodal. The closest surgical margin was 3 mm. There was involvement in 3/12 lymph nodes, the largest measuring 0.5 cm. Extranodal extension was not identified. Pathologic staging was pT4a, pN2b, M1. Her postoperative course was complicated by delayed healing of her pectoralis wound and by a fall at home resulting in a right femoral neck fracture. She underwent bipolar arthroplasty of the right hip on 11/15/2019. At discharge she initially went to [facility] for further rehabilitation, but she was then able to return to her own home. She was seen for follow-up here on 12/23/2019. Due to the lymph node involvement and the metastatic involvement in the left submandibular soft tissue, she was recommended to have postoperative adjuvant radiation. Dr Coley recommended against concurrent chemotherapy due to her multiple comorbidities and marginal performance status. She completed radiation on 03/07/2020 to a total dose of 6000 cGy administered in 30 fractions. The treatment field included the oral cavity and both sides of the neck. A restaging PET/CT on 07/01/2020 showed activity in the left mandibular resection bed consistent with postsurgical inflammation. There also appeared to be inflammatory activity at the left hyoid. A region of discrete increased activity in the left cervical level IV soft tissue measuring 8 mm, SUV 5.0, was felt to be suspicious for recurrence. Also noted on that study were bilateral interstitial lung infiltrates or fibrosis. There were no other areas of significant FDG uptake. She had surgical oncology follow-up with [facility] on 07/21/2020. She underwent biopsy of the left cervical lymph node on 07/27/2020. Pathology showed moderately differentiated squamous cell carcinoma, focally necrotic. After further discussion with Dr. Chacon, it was recommended that she return here for consideration of systemic therapy, as it was felt that she was not medically suitable for an extensive surgical resection. Her other medical illnesses, in addition to the sarcoidosis, include hypertension, hyperlipidemia, atrial fibrillation and peripheral neuropathy. She has a history of diverticulitis, and she also has a history of anxiety/depression. She is a non-smoker. Mrs Posada was seen for a follow-up visit by Dr Coley on September 06, 2020. Following completion of her radiation, she had continued follow-up at wound care clinic for open wounds on her left cheek and at the pectoralis donor site in the left chest. These have been gradually healing. Dr. Coley had recommended restaging as her last PET/CT was in June 2020. His current plan is single agent pembrolizumab as she is not medically suitable for combination chemotherapy or chemo/immunotherapy. Restaging CT of the neck with contrast from September 08, 2020 reported extensive prior postoperative changes in the left parietal mandibulectomy with extensive flap reconstruction and radical neck dissection. There was a new peripheral enhancing fluid collection consistent with an abscess in the superficial flap reconstruction measuring 1.9 x 2.9 x 2.8 cm. 2 smaller heterogeneous peripheral enhancing low-attenuation collections in the lower left jaw and along the right hyoid bone. Associated occluded peripheral enhancing internal jugular vein. Findings likely represent necrotic tissue and/or abscess with tumor thrombus or thrombophlebitis. Edema in the left neck soft tissues extending to the left pharynx. Soft tissue edema with left to right mass-effect on the pharynx and hypopharynx. No high-grade narrowing. Small amount of retropharyngeal edema. Normal vocal cords. Normal subglottic airway. Small right thyroid nodule measuring 8 mm which was unchanged. Her CT of the chest with contrast from September 11, 2020 reported chronic emphysema with pulmonary fibrosis and chronic interstitial lung disease. No increasing soft tissue nodules throughout the chest. No metastatic lesions identified. Stable small lymph nodes in the mediastinum and at the celiac axis. Necrotic peripherally enhancing mass which is probably a lymph node in the left supraclavicular region which is also described on the neck CT from 09/08/2020. Mrs. Posada began her first cycle of single agent pembrolizumab on September 14, 2020. Her current plan is to receive treatment every 3 weeks. She is accompanied by her daughter today. Mrs. Posada denies any new concerns. She denies any fever or chills. She denies any hot flashes. She states her appetite is pretty good. Her energy count of comes and goes but is good for the most part . She denies any difficulty swallowing. She denies any shortness of breath orthopnea. She denies any chest discomfort or palpitations. She denies any cough or hemoptysis. She states she has not had any nausea or vomiting. She denies any lower extremity edema. States her bowels and bladder are normal for her. She has no new concerns today. She states she feels like she has tolerated the first treatment well. Her ECOG is 1. Past Medical History: Anxiety/depression Atrial fibrillation Carotid stenosis History of diverticulitis Hyperlipidemia Hypertension Peripheral neuropathy Sarcoidosis Past Surgical History: Bladder tuck Hysterectomy/bilateral salpingectomy-oophorectomy Left breast biopsy for benign disease Peg tube placement Tonsillectomy Covid vaccine #2 in 2020 Covid vaccine #1 in 2019 Bipolar right hip arthroplasty in 2019 Left hemimandibulectomy, floor of mouth resection, neck dissection, and reconstruction in 2019 Tracheostomy in 2019 Left carotid stent in 2019 Allergies: PCN-Anaphylaxsis and Sulfa. Medications: Benadryl Allergy 1 Tablet (of 25 mg) Oral daily Carvedilol 1 Tablet (of 6.25 mg) Oral daily Clopidogrel Bisulfate 1 Tablet (of 75 mg) Oral daily Hydrochlorothiazide 1 (12.5 mg) Tablet Oral daily Nystatin Suspension Mouth/throat PRN Salagen (5 mg) Tablet Oral t.i.d. Zoloft 1 (100 mg) Tablet Oral daily Family History: Ms. Posada's mother at age 75: cancer history consists of cancer. Ms. Posada's father at age 75: coronary artery disease. Father with heart disease at age 75. Mother of colon cancer at age 75. A brother had Parkinson's disease. Social History: Ms. Posada is and she is retired. Ms. Posada has never smoked. She is a non-smoker. She has just occasional alcohol use. Review Of Symptoms: <See Above> Vital Signs: Performed on September 21, 2020 12:26 Height - 63.00 in Weight - 109.8 lbs (LOW) BSA - 1.50 sq.m BMI - 19.45 Temperature - 98.9 F (HIGH) Pulse - 86 /min Respiration - 18 /min BP - 114/70 mm(hg) O2 Sat - 96 % Pain - 0,1 - No physically strenuous activity, but ambulatory and able to carry out light or sedentary work (e.g. office work, light house work). (ECOG) Physical Examination: Constitutional Alert, oriented, no acute distress. Skin pink, warm and dry. Head Normocephalic; atraumatic. Eyes Conjunctivae and sclerae are clear and without icterus. Pupils are reactive and equal. ENMT NO oral exudates but moderate redness noted in oral cavity-no lesions at present. Neck Left neck/jaw line noted to have moderated Erythema. There is no current lesion or exudate but oral hte lesion does sommen. I see no oral lesions inside the mouth either. Hematologic/Lymphatic No petechiae or purpura. No tender or palpable lymph nodes in the cervical or supraclavicular areas. Respiratory Lungs are clear to auscultation without rhonchi or wheezing. Cardiovascular Regular rate and rhythm of heart without murmurs,clicks, gallops or rubs. Abdomen Non-tender, non-distended, no masses or ascites. Good bowel sounds noted in all quads. No guarding or rebound tenderness. No pulsatile masses. Back/Spine Non-tender to palpation. Extremities No visible deformities, no cyanosis, clubbing or edema. Musculoskeletal No tenderness or swelling, normal range of motion without obvious weakness. Integumentary No rashes or lesions. Neurologic No sensory or motor deficits, normal cerebellar function, normal gait. Psychiatric Alert and oriented times three. Coherent speech. Verbalizes understanding of our discussions today. Laboratory:Test performed on September 21, 2020 08:47 Sodium 133 mmol/L Potassium 3.6 mmol/L Chloride 96 mmol/L CO2 30 mmol/L Anion Gap 10.6 BUN 18 mg/dL Creatinine 0.4 mg/dL Cr Clearance (Est) 89.6700 mL/min Glucose 141 mg/dL Osmolality - Calculated 280 mOsm/kg Calcium 9.0 mg/dL Protein, Total 7.3 g/dL Albumin 3.7 g/dL Globulin 3.6 g/dL Bilirubin, Total 0.4 mg/dL ALT (SGPT) 16 U/L AST (SGOT) 22 U/L Alkaline Phosphatase 137 IU/L WBC 7.2 10 3/uL RBC 4.08 10 6/uL HGB 12.1 g/dL HCT 36.9 % MCV 90.4 fL MCH 29.7 pg MCHC 32.8 g/dL RDW 12.2 % Platelet Count 340 10 3/cmm MPV 9.0 fL Neutrophils 5.57 10 3/uL Lymphocytes 0.6 10 3/uL Monocytes 0.8 10 3/uL Eosinophils 0.2 10 3/uL Basophils 0.0 10 3/uL Neutrophil % 77.6 % Lymphocyte % 7.9 % Monocyte % 10.7 % Eosinophil % 3.1 % Basophils % 0.4 % NRBC % 0 % Test performed on Sep 06, 2020 13:02 TSH 5.38 uIU/mL Impression: 1. 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 She now has biopsy proven recurrence in a left level IV cervical lymph node. 2. Hypertension. 3. Hyperlipidemia. 4. Atrial fibrillation. 5. Carotid artery stenosis requiring stenting of the left carotid artery. 6. Sarcoidosis. 7. Peripheral neuropathy. 8. History of diverticulitis. 9. History of traumatic right femoral neck fracture requiring bipolar right hip arthroplasty on 11/15/2019. 10. Anxiety/depression. Plan/Problems Addressed at this Visit: 1. 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 Due to surgery being delayed for stenting of the left carotid artery, she began neoadjuvant chemotherapy with weekly Erbitux, carboplatin, and paclitaxel. Treatment was limited to 1 cycle of carboplatin/paclitaxel. Erbitux was not administered due to a hypersensitivity reaction to the test dose. She then underwent segmental mandibulectomy, floor of mouth resection, neck dissection, tracheostomy, and pectoralis flap reconstruction on 09/01/2019. She also underwent placement of PEG tube. Pathologic staging was pT4a, pN2b, M1. Her postoperative course was complicated by delayed healing of her pectoralis wound and by a fall at home resulting in a right femoral neck fracture. She underwent bipolar arthroplasty of the right hip on 11/15/2019. She was seen for follow-up here on 12/23/2019. Due to the lymph node involvement and the metastatic involvement in the left submandibular soft tissue, she was recommended to have postoperative adjuvant radiation. Concurrent chemotherapy was not recommended due to her multiple comorbidities and marginal performance status. She completed radiation on 03/07/2020 to a total dose of 6000 cGy administered in 30 fractions. The treatment field included the oral cavity and both sides of the neck. A restaging PET/CT on 07/01/2020 showed a region of discrete increased activity in the left cervical level IV soft tissue measuring 8 mm, SUV 5.0, was felt to be suspicious for recurrence. There were no other areas of suspicious FDG uptake. Biopsy of the left cervical lymph node on 07/27/2020 confirmed moderately differentiated squamous cell carcinoma, focally necrotic. After further discussion with Dr. Chacon, it was recommended that she return here for consideration of systemic therapy, as it was felt that she was not medically suitable for an extensive surgical resection. Restaging CT of the neck, chest abdomen pelvis was obtained on September 08, [address] of the chest abdomen pelvis was obtained on 09/11/2020. For details see above. A. Mrs. Posada will proceed with cycle 1 day 8 pembrolizumab 200 mg IV every 3 weeks. She was treated on day 1 with single agent pembrolizumab 200 mg IV. B. She may utilize Compazine and lorazepam as needed for antiemetics at home. C. Labs from September 06, 2020 were reviewed in detail and discussed with Ms. Posada and her daughter and a copy was given to her. WBC 7.1, hemoglobin 12.4, platelets 281,000, ANC is 5130. Potassium 3.8 random glucose 103 creatinine 0.4 LFTs are normal alk phos is 145 and her TSH is 5.238. Her weight is stable today at 111.4. D. We will call [facility] and ask to see if they could resume the lymph massage therapist. Mrs. Posada felt that this was significantly helping her in the past. 2. Follow-up plan A. She will return in 1 week for day follow-up with CBC CMP. B. She will have interim weekly labs. Signed By: Ravin Walker, FELICIA Coley MC <<Signature on File>>
== END 2020-09-21 05:56 | disposition home or self-care (01) ==
LOC: ONCMED 05:57
PROVIDERS: PCP Family Medicine; Visit Provider Nurse Practitioner
DX: C00.9 Malignant neoplasm of lip, unspecified (principal); C77.0 Secondary and unspecified malignant neoplasm of lymph nodes of head, face and neck; I10 Essential (primary) hypertension; E78.5 Hyperlipidemia, unspecified; I48.20 Chronic atrial fibrillation, unspecified; I65.23 Occlusion and stenosis of bilateral carotid arteries; D86.9 Sarcoidosis, unspecified; G62.9 Polyneuropathy, unspecified; K57.92 Diverticulitis of intestine, part unspecified, without perforation or abscess without bleeding; Z96.641 Presence of right artificial hip joint; F41.9 Anxiety disorder, unspecified; F32.9 Major depressive disorder, single episode, unspecified; Z79.899 Other long term (current) drug therapy; Z92.3 Personal history of irradiation; Z92.21 Personal history of antineoplastic chemotherapy
CPT/HCPCS: 36415; 80053; 85025; 99214

== ENCOUNTER 2020-09-25 10:11 | Outpatient (CLI) | payer MEDICARE, OTHER, SELFPAY | END 2020-09-25 10:12 | disposition home or self-care (01) | LOC: WOUND 10:14 | PROVIDERS: PCP Family Medicine; Visit Provider Nurse Practitioner Family | DX: T81.89XA Other complications of procedures, not elsewhere classified, initial encounter (principal); Y83.8 Other surgical procedures as the cause of abnormal reaction of the patient, or of later complication, without mention of misadventure at the time of the procedure | CPT/HCPCS: 11042 ==

== ENCOUNTER 2020-10-02 06:00 | Outpatient (RCR) | payer MEDICARE, OTHER, SELFPAY | END 2020-10-09 23:59 | disposition home or self-care (01) | LOC: SST 06:00 | PROVIDERS: PCP Family Medicine; Referring Provider Nurse Practitioner; Visit Provider Nurse Practitioner | DX: R13.10 Dysphagia, unspecified (principal); C14.0 Malignant neoplasm of pharynx, unspecified | CPT/HCPCS: 92523; 92610 ==

== ENCOUNTER 2020-10-05 05:35 | Outpatient (RCR) | payer MEDICARE, OTHER, SELFPAY ==
[2020-10-04 09:57] LABS: Basophils % 0.3 %; Eosinophils # 0.2 10^3/uL (0.0-0.8); Eosinophils % 3.4 %; Hematocrit 35.6 % (37.0-47.0); Hemoglobin 11.9 g/dL (11.5-15.3); Lymphocytes # 0.4 10^3/uL (0.8-4.8); Lymphocytes % 6.6 %; Mean Corpuscular HGB Conc 33.4 g/dL (30.0-36.0); Mean Corpuscular Hemoglobin 30.1 pg (28.0-34.0); Mean Corpuscular Volume 90.1 fL (81-99); Mean Platelet Volume 9.1 fL (7.4-10.4); Monocytes # 0.6 10^3/uL (0.2-0.9); Monocytes % 9.6 %; Neutrophils # 5.15 10^3/uL (1.8-7.7); Neutrophils % 79.6 %; Nucleated Red Blood Cells % 0 %; Platelet Count 276 10^3/cmm (130-400); Red Blood Count 3.95 10^6/uL (4.1-5.3); Red Cell Distribution Width 12.3 % (12.1-15.1); White Blood Count 6.5 10^3/uL (4.0-10.0)
[2020-10-04 10:28] LABS: Alanine Aminotransferase 14 U/L (0-33); Albumin Level 3.7 g/dL (3.5-5.2); Alkaline Phosphatase 125 IU/L (35-105); Anion Gap 11.7 (5-19); Aspartate Amino Transferase 23 U/L (0-32); Blood Urea Nitrogen 20 mg/dL (8-23); Calcium 8.9 mg/dL (8.5-10.5); Carbon Dioxide 30 mmol/L (22-29); Chloride 94 mmol/L (98-107); Globulin 3.5 g/dL (1.3-4.6); Glucose 122 mg/dL (65-115); Osmolality Calculated 278 mOsm/kg (285-295); Potassium 3.7 mmol/L (3.5-5.1); Sodium 132 mmol/L (136-145); Thyroid Stimulating Hormone 5.63 uIU/mL (0.27-4.20); Total Bilirubin 0.6 mg/dL (0.15-1.2); Total Protein 7.2 g/dL (6.6-8.7)
--- NOTE | 2020-10-05 12:31 | ONC FU_ITS ---
Dr. Coley Patient Follow-Up Note Patient: Lian Posada Unit #: [id number]: [id number] Dicatated By: Joao Coley M.D.Date of Visit:October 05, 2020 Onc Med Follow-up/Prog Note Chief Complaint: Gingival cancer. 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 She has previously been treated here for sarcoidosis. She had then presented with pain in the left mandible following a dental extraction in January 2019. It had continued to worsen despite several rounds of antibiotic therapy. By June 2019 she had developed a mass on the left side of the neck. She was seen by Dr. Tobias, and she was noted to have a lesion involving the left lower gingiva. CT of the neck showed a heterogeneously enhancing mass with central necrosis involving the left submandibular space with mass-effect in the anterior aspect of the submandibular gland. Atherosclerotic changes were noted in the carotid bulb bilaterally. FNA biopsy of the gingival lesion showed keratosis with moderate atypia and foci suspicious for well-differentiated invasive squamous cell carcinoma. FNA biopsy of the left neck mass showed necroinflammatory changes with rare cells suspicious for metastatic carcinoma. She was then seen for further management by Dr. Sherry Chacon in [place], [place], and she was recommended to undergo definitive surgery. However, her further evaluation with CT angiogram of the neck on 07/14/2019 showed severe stenosis involving the left internal carotid artery, estimated at 80%. Staging PET/CT on 07/23/2019 showed intense uptake at the left floor of the mouth with the osseous involvement of the mandible. There was left submandibular adenopathy with extracapsular extension into the submandibular gland. There was borderline upper abdominal adenopathy without F DG uptake, presumed to be reactive. There was no evidence of distant metastatic disease. She then underwent stenting of the left carotid artery, causing a delay in her definitive surgery. As such, it was opted to give her neoadjuvant chemotherapy with weekly carboplatin and paclitaxel in combination with Erbitux. She was not able to complete the Erbitux because of a hypersensitivity reaction to the test dose, but she did complete 1 cycle of treatment with carboplatin/paclitaxel on 08/12/2019. On 09/01/2019 she underwent segmental mandibulectomy, floor of mouth resection, neck dissection, tracheostomy, and pectoralis flap reconstruction. She also had a PEG tube placed. She tolerated the surgery well. Pathology showed grade 2 squamous cell carcinoma involving the left lower gingiva. The tumor measured 2.5 cm with a 3 mm depth of invasion. There was superficial direct invasion through the cortex of the mandible. There was evidence of cystic metastatic squamous cell carcinoma involving submandibular soft tissue measuring 4.5 cm, presumed to be extranodal. The closest surgical margin was 3 mm. There was involvement in 3/12 lymph nodes, the largest measuring 0.5 cm. Extranodal extension was not identified. Pathologic staging was pT4a, pN2b, M1. Her postoperative course was complicated by delayed healing of her pectoralis wound and by a fall at home resulting in a right femoral neck fracture. She underwent bipolar arthroplasty of the right hip on 11/15/2019. At discharge she initially went to [facility] for further rehabilitation, but she was then able to return to her own home. She was seen for follow-up here on 12/23/2019. Due to the lymph node involvement and the metastatic involvement in the left submandibular soft tissue, she was recommended to have postoperative adjuvant radiation. I recommended against concurrent chemotherapy due to her multiple comorbidities and marginal performance status. She completed radiation on 03/07/2020 to a total dose of 6000 cGy administered in 30 fractions. The treatment field included the oral cavity and both sides of the neck. A restaging PET/CT on 07/01/2020 showed activity in the left mandibular resection bed consistent with postsurgical inflammation. There also appeared to be inflammatory activity at the left hyoid. A region of discrete increased activity in the left cervical level IV soft tissue measuring 8 mm, SUV 5.0, was felt to be suspicious for recurrence. Also noted on that study were bilateral interstitial lung infiltrates or fibrosis. There were no other areas of significant FDG uptake. She had surgical oncology follow-up with [facility] on 07/21/2020. She underwent biopsy of the left cervical lymph node on 07/27/2020. Pathology showed moderately differentiated squamous cell carcinoma, focally necrotic. After further discussion with Dr. Chacon, it was recommended that she return here for consideration of systemic therapy, as it was felt that she was not medically suitable for an extensive surgical resection. Her other medical illnesses, in addition to the sarcoidosis, include hypertension, hyperlipidemia, atrial fibrillation and peripheral neuropathy. She has a history of diverticulitis, and she also has a history of anxiety/depression. She is a non-smoker. INTERIM HISTORY: Her restaging neck CT on 09/08/2020 showed extensive prior postoperative changes of left partial mandibulectomy/flap reconstruction/radical neck dissection. A new peripheral enhancing fluid collection consistent with abscess was noted within the superficial flap and 2 smaller peripheral enhancing low-attenuation collections were noted in the lower left neck and along the right hyoid bone. There was significant edema in the left neck soft tissues. Chest CT on 09/11/2020 showed chronic emphysema with pulmonary fibrosis and chronic interstitial lung disease. There were no metastatic lesions identified. Small nodes in the mediastinum at the celiac axis appeared stable. On 09/14/2020 she began a trial of immunotherapy with pembrolizumab. She tolerated the initial infusion without any adverse effects. Since then she has been a little more fatigued overall, but she is still able to do light work. ECOG score is 1. Her appetite is not good, as she does have difficulty with chewing and swallowing. She is undergoing evaluation by speech therapy. She is still getting most of her caloric intake through [employer]. She does tend to have cough when she first gets up in the morning. She does not complain of shortness of breath or chest pain. She has no GI or complaints. She has some arthritis pain, worse with rainy weather. She has some ongoing problems with balance/equilibrium. She does not complain of headache, and she has no focal neurologic symptoms. Medications: Benadryl Allergy 1 Tablet (of 25 mg) Oral daily, Carvedilol 1 Tablet (of 6.25 mg) Oral daily, Clopidogrel Bisulfate 1 Tablet (of 75 mg) Oral daily, Hydrochlorothiazide 1 (12.5 mg) Tablet Oral daily, Nystatin Suspension Mouth/throat PRN, Salagen (5 mg) Tablet Oral t.i.d., Zoloft 1 (100 mg) Tablet Oral daily Allergies: PCN-Anaphylaxsis and Sulfa. Vital Signs: Performed on October 05, 2020 10:29 Height - 63.00 in Weight - 107 lbs (LOW) BSA - 1.48 sq.m BMI - 18.95 Temperature - 97.5 F (LOW) Pulse - 85 /min Respiration - 18 /min BP - 105/58 mm(hg) O2 Sat - 94 % (LOW) Pain - 0 Fatigue - 7 Physical Examination: Constitutional - She appears somewhat weak generally, Eyes - Sclerae nonicteric. Conjunctivae clear, ENMT - Mouth is dry. There are no lesions noted in the oral cavity, Neck - There is swelling and induration of the left side of the neck and face, and there is some associated erythema. There is no discrete mass palpable, Hematologic/Lymphatic - No cervical, clavicular, or axillary adenopathy noted, Respiratory - Lungs are clear with good air movement bilaterally, Cardiovascular - Heart rhythm is regular. There is no murmur, gallop, or rub noted, Abdomen - Soft. Liver and spleen are not enlarged. There is no abdominal mass or ascites noted and there is no inguinal adenopathy, Extremities - No edema, Integumentary - There is a persistent, small open wound beneath the left breast, Neurologic - No focal neurologic deficits noted. Lab/Imaging: CBC shows hemoglobin 11.9 g, white blood cell count 6500, and platelet count 276,000. Comprehensive metabolic profile is unremarkable except for slightly elevated alkaline phosphatase of 125/105 IU/L. TSH is borderline high but stable at 5.63 ???IU/mL. Problem List: 1. 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 She now has biopsy proven recurrence in a left level IV cervical lymph node. 2. Hypertension. 3. Hyperlipidemia. 4. Atrial fibrillation. 5. Carotid artery stenosis requiring stenting of the left carotid artery. 6. Sarcoidosis. 7. Peripheral neuropathy. 8. History of diverticulitis. 9. History of traumatic right femoral neck fracture requiring bipolar right hip arthroplasty on 11/15/2019. 10. Anxiety/depression. Problems Addressed with this Encounter and Plan: 1. 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 Due to surgery being delayed for stenting of the left carotid artery, she began neoadjuvant chemotherapy with weekly Erbitux, carboplatin, and paclitaxel. Treatment was limited to 1 cycle of carboplatin/paclitaxel. Erbitux was not administered due to a hypersensitivity reaction to the test dose. She then underwent segmental mandibulectomy, floor of mouth resection, neck dissection, tracheostomy, and pectoralis flap reconstruction on 09/01/2019. She also underwent placement of PEG tube. Pathologic staging was pT4a, pN2b, M1. Her postoperative course was complicated by delayed healing of her pectoralis wound and by a fall at home resulting in a right femoral neck fracture. She underwent bipolar arthroplasty of the right hip on 11/15/2019. She was seen for follow-up here on 12/23/2019. Due to the lymph node involvement and the metastatic involvement in the left submandibular soft tissue, she was recommended to have postoperative adjuvant radiation. Concurrent chemotherapy was not recommended due to her multiple comorbidities and marginal performance status. She completed radiation on 03/07/2020 to a total dose of 6000 cGy administered in 30 fractions. The treatment field included the oral cavity and both sides of the neck. A restaging PET/CT on 07/01/2020 showed a region of discrete increased activity in the left cervical level IV soft tissue measuring 8 mm, SUV 5.0, was felt to be suspicious for recurrence. There were no other areas of suspicious FDG uptake. Biopsy of the left cervical lymph node on 07/27/2020 confirmed moderately differentiated squamous cell carcinoma, focally necrotic. It was the opinion of her surgeon, Dr. Chacon, that she was not medically suitable for an extensive surgical resection. As such, she was recommended to proceed with a trial of immunotherapy. She then began cycle 1 of pembrolizumab on 09/14/2020. She has had some increased fatigue following that treatment, but she has had no other apparent adverse effects. As such, she will proceed now with cycle 2 of pembrolizumab at 200 mg by IV infusion. She will return for treatment in 3 weeks and for a follow-up visit in 6 weeks. 2. 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 She will continue treatment with Salagen. She also will continue evaluation with speech therapy regarding her swallowing issues. 3. She has significant anorexia and ongoing weight loss. I will have her start a trial of therapy with dronabinol 2.5 mg twice daily, subject to verification of insurance coverage. 4. She has chronic/persistent abscess in the left neck following her surgery/radiation. She continues regular follow-up at wound care. Signed By: Joao Coley M.D. <<Signature on File>>
== END 2020-10-09 23:59 | disposition home or self-care (01) ==
LOC: ONCMED 05:35
PROVIDERS: Nurse Practitioner; PCP Family Medicine; Visit Provider Internal Medicine Medical Oncology
DX: Z51.12 Encounter for antineoplastic immunotherapy (principal); C03.1 Malignant neoplasm of lower gum; C77.0 Secondary and unspecified malignant neoplasm of lymph nodes of head, face and neck; D86.9 Sarcoidosis, unspecified; E83.52 Hypercalcemia; I10 Essential (primary) hypertension; E78.5 Hyperlipidemia, unspecified; I48.20 Chronic atrial fibrillation, unspecified; I25.10 Atherosclerotic heart disease of native coronary artery without angina pectoris; G62.9 Polyneuropathy, unspecified; K57.92 Diverticulitis of intestine, part unspecified, without perforation or abscess without bleeding; F41.9 Anxiety disorder, unspecified; F32.9 Major depressive disorder, single episode, unspecified; Z96.641 Presence of right artificial hip joint; Z79.899 Other long term (current) drug therapy
CPT/HCPCS: 80053; 84443; 85025; 96413; 99214; J7050; J9271

== ENCOUNTER 2020-10-10 06:00 | Outpatient (RCR) | payer MEDICARE, OTHER, SELFPAY | END 2020-11-08 23:59 | disposition home or self-care (01) | LOC: SST 06:00 | PROVIDERS: PCP Family Medicine; Referring Provider Nurse Practitioner; Visit Provider Nurse Practitioner | DX: C14.0 Malignant neoplasm of pharynx, unspecified (principal); R13.0 Aphagia | CPT/HCPCS: 92507; 92526 ==

== ENCOUNTER 2020-10-13 10:13 | Outpatient (CLI) | payer MEDICARE, OTHER, SELFPAY ==
--- NOTE | 2020-10-13 10:26 | FL_ITS ---
WS: [id number] Modified barium swallow, 10/13/2020 Clinical Data: Other dysphagia Comparison: None. Fluoroscopy time: 1.6 minutes. Findings: The patient swallowed the barium and showed weak oral propulsion. There was no aspiration or penetrat ion. There is also pharyngeal weakness and fatigue reduced the bolus propulsion. FL/FL barium swallow modifd [id number] Impression: 1. 1. Oral and pharyngeal weakness which became worse with time. 2. Negative for aspiration or penetration.
== END 2020-10-13 10:14 | disposition home or self-care (01) ==
PROVIDERS: PCP Family Medicine; Visit Provider Nurse Practitioner
DX: R13.19 Other dysphagia (principal)
CPT/HCPCS: 74230; 92611

== ENCOUNTER 2020-10-16 10:20 | Outpatient (CLI) | payer MEDICARE, OTHER, SELFPAY | END 2020-10-16 10:21 | disposition home or self-care (01) | LOC: WOUND 10:23 | PROVIDERS: PCP Family Medicine; Visit Provider Nurse Practitioner Family | DX: T81.89XA Other complications of procedures, not elsewhere classified, initial encounter (principal); Y83.8 Other surgical procedures as the cause of abnormal reaction of the patient, or of later complication, without mention of misadventure at the time of the procedure | CPT/HCPCS: 11042 ==

== ENCOUNTER 2020-10-26 06:25 | Outpatient (RCR) | payer MEDICARE, OTHER, SELFPAY ==
[2020-10-26] MEDS: sodium chloride 0.9% 250 ML 125 ML IV (11:15)
== END 2020-11-08 23:59 | disposition home or self-care (01) ==
LOC: ONCMED 06:25
PROVIDERS: PCP Family Medicine; Visit Provider Internal Medicine Medical Oncology
DX: Z51.12 Encounter for antineoplastic immunotherapy (principal); C03.1 Malignant neoplasm of lower gum; C77.0 Secondary and unspecified malignant neoplasm of lymph nodes of head, face and neck; Z79.899 Other long term (current) drug therapy
CPT/HCPCS: 96413; J7050; J9271

== ENCOUNTER 2020-11-06 10:28 | Outpatient (CLI) | payer MEDICARE, OTHER, SELFPAY | END 2020-11-06 10:29 | disposition home or self-care (01) | LOC: WOUND 10:29 | PROVIDERS: PCP Family Medicine; Visit Provider Nurse Practitioner Family | DX: T81.89XA Other complications of procedures, not elsewhere classified, initial encounter (principal); Y83.8 Other surgical procedures as the cause of abnormal reaction of the patient, or of later complication, without mention of misadventure at the time of the procedure | CPT/HCPCS: 11042 ==

== ENCOUNTER 2020-11-09 06:00 | Outpatient (RCR) | payer MEDICARE, OTHER, SELFPAY | END 2020-12-09 23:59 | disposition home or self-care (01) | LOC: SST 06:00 | PROVIDERS: PCP Family Medicine; Referring Provider Nurse Practitioner; Visit Provider Nurse Practitioner | DX: C14.0 Malignant neoplasm of pharynx, unspecified (principal); R13.10 Dysphagia, unspecified | CPT/HCPCS: 92507 ==

== ENCOUNTER 2020-11-27 10:23 | Outpatient (CLI) | payer MEDICARE, OTHER, SELFPAY | END 2020-11-27 10:24 | disposition home or self-care (01) | LOC: WOUND 10:25 | PROVIDERS: PCP Family Medicine; Visit Provider Nurse Practitioner Family | DX: T81.89XA Other complications of procedures, not elsewhere classified, initial encounter (principal); Y83.8 Other surgical procedures as the cause of abnormal reaction of the patient, or of later complication, without mention of misadventure at the time of the procedure | CPT/HCPCS: 11042 ==

== ENCOUNTER 2020-12-07 05:49 | Outpatient (RCR) | payer MEDICARE, OTHER, SELFPAY ==
[2020-11-16 13:37] LABS: Basophils % 0.6 %; Eosinophils # 0.3 10^3/uL (0.0-0.8); Eosinophils % 4.5 %; Hematocrit 34.3 % (37.0-47.0); Hemoglobin 11.1 g/dL (11.5-15.3); Lymphocytes # 0.7 10^3/uL (0.8-4.8); Lymphocytes % 11.8 %; Mean Corpuscular HGB Conc 32.4 g/dL (30.0-36.0); Mean Corpuscular Hemoglobin 29.4 pg (28.0-34.0); Mean Platelet Volume 9.4 fL (7.4-10.4); Monocytes # 0.9 10^3/uL (0.2-0.9); Monocytes % 13.5 %; Neutrophils # 4.36 10^3/uL (1.8-7.7); Neutrophils % 69.4 %; Nucleated Red Blood Cells % 0 %; Platelet Count 255 10^3/cmm (130-400); Red Blood Count 3.77 10^6/uL (4.1-5.3); Red Cell Distribution Width 13.8 % (12.1-15.1); White Blood Count 6.3 10^3/uL (4.0-10.0)
[2020-11-16 13:54] LABS: Alanine Aminotransferase 21 U/L (0-33); Albumin Level 3.6 g/dL (3.5-5.2); Alkaline Phosphatase 138 IU/L (35-105); Anion Gap 12.5 (5-19); Aspartate Amino Transferase 28 U/L (0-32); Blood Urea Nitrogen 17 mg/dL (8-23); Calcium 9.3 mg/dL (8.5-10.5); Carbon Dioxide 27 mmol/L (22-29); Chloride 101 mmol/L (98-107); Free T4 Free Thyroxine 0.89 ng/dL (0.82-1.77); Globulin 3.3 g/dL (1.3-4.6); Glucose 100 mg/dL (65-115); Osmolality Calculated 284 mOsm/kg (285-295); Potassium 4.5 mmol/L (3.5-5.1); Sodium 136 mmol/L (136-145); Thyroid Stimulating Hormone 6.29 uIU/mL (0.27-4.20); Total Bilirubin 0.5 mg/dL (0.15-1.2); Total Protein 6.9 g/dL (6.6-8.7)
[2020-11-16] MEDS: sodium chloride 0.9% 250 ML 125 ML IV (15:36)
--- NOTE | 2020-11-19 13:04 | ONC FU_ITS ---
Dr. Coley Patient Follow-Up Note Patient: Lian Posada Unit #: [id number]: 1940 Dicatated By: Joao Coley M.D.Date of Visit:Nov 16, 2020 Onc Med Follow-up/Prog Note Chief Complaint: Gingival cancer. 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 She has previously been treated here for sarcoidosis. She had then presented with pain in the left mandible following a dental extraction in January 2019. It had continued to worsen despite several rounds of antibiotic therapy. By June 2019 she had developed a mass on the left side of the neck. She was seen by Dr. Tobias, and she was noted to have a lesion involving the left lower gingiva. CT of the neck showed a heterogeneously enhancing mass with central necrosis involving the left submandibular space with mass-effect in the anterior aspect of the submandibular gland. Atherosclerotic changes were noted in the carotid bulb bilaterally. FNA biopsy of the gingival lesion showed keratosis with moderate atypia and foci suspicious for well-differentiated invasive squamous cell carcinoma. FNA biopsy of the left neck mass showed necroinflammatory changes with rare cells suspicious for metastatic carcinoma. She was then seen for further management by Dr. Sherry Chacon in [place], [place], and she was recommended to undergo definitive surgery. However, her further evaluation with CT angiogram of the neck on 07/14/2019 showed severe stenosis involving the left internal carotid artery, estimated at 80%. Staging PET/CT on 07/23/2019 showed intense uptake at the left floor of the mouth with the osseous involvement of the mandible. There was left submandibular adenopathy with extracapsular extension into the submandibular gland. There was borderline upper abdominal adenopathy without F DG uptake, presumed to be reactive. There was no evidence of distant metastatic disease. She then underwent stenting of the left carotid artery, causing a delay in her definitive surgery. As such, it was opted to give her neoadjuvant chemotherapy with weekly carboplatin and paclitaxel in combination with Erbitux. She was not able to complete the Erbitux because of a hypersensitivity reaction to the test dose, but she did complete 1 cycle of treatment with carboplatin/paclitaxel on 08/12/2019. On 09/01/2019 she underwent segmental mandibulectomy, floor of mouth resection, neck dissection, tracheostomy, and pectoralis flap reconstruction. She also had a PEG tube placed. She tolerated the surgery well. Pathology showed grade 2 squamous cell carcinoma involving the left lower gingiva. The tumor measured 2.5 cm with a 3 mm depth of invasion. There was superficial direct invasion through the cortex of the mandible. There was evidence of cystic metastatic squamous cell carcinoma involving submandibular soft tissue measuring 4.5 cm, presumed to be extranodal. The closest surgical margin was 3 mm. There was involvement in 3/12 lymph nodes, the largest measuring 0.5 cm. Extranodal extension was not identified. Pathologic staging was pT4a, pN2b, M1. Her postoperative course was complicated by delayed healing of her pectoralis wound and by a fall at home resulting in a right femoral neck fracture. She underwent bipolar arthroplasty of the right hip on 11/15/2019. At discharge she initially went to [facility] for further rehabilitation, but she was then able to return to her own home. She was seen for follow-up here on 12/23/2019. Due to the lymph node involvement and the metastatic involvement in the left submandibular soft tissue, she was recommended to have postoperative adjuvant radiation. I recommended against concurrent chemotherapy due to her multiple comorbidities and marginal performance status. She completed radiation on 03/07/2020 to a total dose of 6000 cGy administered in 30 fractions. The treatment field included the oral cavity and both sides of the neck. A restaging PET/CT on 07/01/2020 showed activity in the left mandibular resection bed consistent with postsurgical inflammation. There also appeared to be inflammatory activity at the left hyoid. A region of discrete increased activity in the left cervical level IV soft tissue measuring 8 mm, SUV 5.0, was felt to be suspicious for recurrence. Also noted on that study were bilateral interstitial lung infiltrates or fibrosis. There were no other areas of significant FDG uptake. She had surgical oncology follow-up with [facility] on 07/21/2020. She underwent biopsy of the left cervical lymph node on 07/27/2020. Pathology showed moderately differentiated squamous cell carcinoma, focally necrotic. After further discussion with Dr. Chacon, it was recommended that she return here for consideration of systemic therapy, as it was felt that she was not medically suitable for an extensive surgical resection. Her other medical illnesses, in addition to the sarcoidosis, include hypertension, hyperlipidemia, atrial fibrillation and peripheral neuropathy. She has a history of diverticulitis, and she also has a history of anxiety/depression. She is a non-smoker. INTERIM HISTORY: Her restaging neck CT on 09/08/2020 showed extensive prior postoperative changes of left partial mandibulectomy/flap reconstruction/radical neck dissection. A new peripheral enhancing fluid collection consistent with abscess was noted within the superficial flap and 2 smaller peripheral enhancing low-attenuation collections were noted in the lower left neck and along the right hyoid bone. There was significant edema in the left neck soft tissues. Chest CT on 09/11/2020 showed chronic emphysema with pulmonary fibrosis and chronic interstitial lung disease. There were no metastatic lesions identified. Small nodes in the mediastinum at the celiac axis appeared stable. On 09/14/2020 she began a trial of immunotherapy with pembrolizumab. She tolerated the initial infusion without any adverse effects. She then continued with cycle 2 on 10/05/2020 and with cycle 3 on 10/26/2020. She is seen for a follow-up visit. She had recently been bothered with low blood pressure, and after having a couple of falls, she had reduced her blood pressure medications. She says her energy waxes and wanes. Some days it is not very good, but other days she has bursts of energy and she is able to do light work. ECOG score is 1. Her appetite is still not good. She is mostly living on Ensure. She otherwise just nibbles. She had very poor tolerance for dronabinol. She has dry mouth, but she does not have difficulty swallowing. She has a little bit of cough in the morning to clear out phlegm. She does not complain of shortness of breath or chest pain. She has no GI or complaints. She does have some joint pain, but it is adequately managed with Tylenol. She does not complain of headache. She does have some difficulty with balance. She has no numbness/paresthesia or other focal neurologic symptoms. Medications: Benadryl Allergy 1 Tablet (of 25 mg) Oral daily, Carvedilol 1 Tablet (of 6.25 mg) Oral daily, Clopidogrel Bisulfate 1 Tablet (of 75 mg) Oral daily, Hydrochlorothiazide 1 (12.5 mg) Tablet Oral daily, Nystatin Suspension Mouth/throat PRN, Salagen (5 mg) Tablet Oral t.i.d., Zoloft 1 (100 mg) Tablet Oral daily Allergies: PCN-Anaphylaxsis and Sulfa. Vital Signs: Performed on Nov 16, 2020 16:09 Height - 63.00 in Temperature - 97.4 F (LOW) Pulse - 80 /min Respiration - 18 /min BP - 117/57 mm(hg) O2 Sat - 95 % (LOW) Performed on Nov 16, 2020 15:46 Height - 63.00 in Weight - 108.6 lbs (HIGH) BSA - 1.49 sq.m BMI - 19.24 Temperature - 98.2 F (LOW) Pulse - 80 /min Respiration - 18 /min BP - 119/65 mm(hg) O2 Sat - 96 % Pain - 0 Physical Examination: Constitutional - She appears somewhat weak generally, Eyes - Sclerae nonicteric. Conjunctivae clear, ENMT - Mouth is dry. There are no lesions noted in the oral cavity, Neck - There is soft tissue swelling and induration on both sides of the neck, more prominently on the left. There is just mild erythema. There is no mass palpable, Hematologic/Lymphatic - No cervical, clavicular, or axillary adenopathy noted, Respiratory - Lungs are clear with good air movement bilaterally, Cardiovascular - Heart rhythm is regular. There is no murmur, gallop, or rub noted, Abdomen - Soft. Liver and spleen are not enlarged. There is no abdominal mass or ascites noted and there is no inguinal adenopathy, Extremities - No edema, Integumentary - The left cheek wound is almost completely healed now. There is just slight exudate at the wound in the left breast/chest wall, Neurologic - No focal neurologic deficits noted. Lab/Imaging: Test performed on Nov 16, 2020 13:06 Sodium 136 mmol/L T4, Free 0.89 ng/dL TSH 6.29 uIU/mL Potassium 4.5 mmol/L Chloride 101 mmol/L CO2 27 mmol/L Anion Gap 12.5 BUN 17 mg/dL Creatinine 0.5 mg/dL Cr Clearance (Est) 70.95 mL/min Glucose 100 mg/dL Osmolality - Calculated 284 mOsm/kg Calcium 9.3 mg/dL Protein, Total 6.9 g/dL Albumin 3.6 g/dL Globulin 3.3 g/dL Bilirubin, Total 0.5 mg/dL ALT (SGPT) 21 U/L AST (SGOT) 28 U/L Alkaline Phosphatase 138 IU/L WBC 6.3 10 3/uL RBC 3.77 10 6/uL HGB 11.1 g/dL HCT 34.3 % MCV 91.0 fL MCH 29.4 pg MCHC 32.4 g/dL RDW 13.8 % Platelet Count 255 10 3/cmm MPV 9.4 fL Neutrophils 4.36 10 3/uL Lymphocytes 0.7 10 3/uL Monocytes 0.9 10 3/uL Eosinophils 0.3 10 3/uL Basophils 0.0 10 3/uL Neutrophil % 69.4 % Lymphocyte % 11.8 % Monocyte % 13.5 % Eosinophil % 4.5 % Basophils % 0.6 % NRBC % 0 % Problem List: 1. 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 She now has biopsy proven recurrence in a left level IV cervical lymph node. 2. Hypertension. 3. Hyperlipidemia. 4. Atrial fibrillation. 5. Carotid artery stenosis requiring stenting of the left carotid artery. 6. Sarcoidosis. 7. Peripheral neuropathy. 8. History of diverticulitis. 9. History of traumatic right femoral neck fracture requiring bipolar right hip arthroplasty on 11/15/2019. 10. Anxiety/depression. Problems Addressed with this Encounter and Plan: 1. 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 Due to surgery being delayed for stenting of the left carotid artery, she began neoadjuvant chemotherapy with weekly Erbitux, carboplatin, and paclitaxel. Treatment was limited to 1 cycle of carboplatin/paclitaxel. Erbitux was not administered due to a hypersensitivity reaction to the test dose. She then underwent segmental mandibulectomy, floor of mouth resection, neck dissection, tracheostomy, and pectoralis flap reconstruction on 09/01/2019. She also underwent placement of PEG tube. Pathologic staging was pT4a, pN2b, M1. Her postoperative course was complicated by delayed healing of her pectoralis wound and by a fall at home resulting in a right femoral neck fracture. She underwent bipolar arthroplasty of the right hip on 11/15/2019. She was seen for follow-up here on 12/23/2019. Due to the lymph node involvement and the metastatic involvement in the left submandibular soft tissue, she was recommended to have postoperative adjuvant radiation. Concurrent chemotherapy was not recommended due to her multiple comorbidities and marginal performance status. She completed radiation on 03/07/2020 to a total dose of 6000 cGy administered in 30 fractions. The treatment field included the oral cavity and both sides of the neck. A restaging PET/CT on 07/01/2020 showed a region of discrete increased activity in the left cervical level IV soft tissue measuring 8 mm, SUV 5.0, was felt to be suspicious for recurrence. There were no other areas of suspicious FDG uptake. Biopsy of the left cervical lymph node on 07/27/2020 confirmed moderately differentiated squamous cell carcinoma, focally necrotic. It was the opinion of her surgeon, Dr. Chacon, that she was not medically suitable for an extensive surgical resection. As such, she was recommended to proceed with a trial of immunotherapy. She then began cycle 1 of pembrolizumab on 09/14/2020. She reported some increased fatigue following that treatment, but she had no other apparent adverse effects, and she has been able to continue treatment at 3-week intervals. She will proceed now with cycle 4 of pembrolizumab at 200 mg by IV infusion. She will return for treatment in 3 weeks and for a follow-up visit in 6 weeks. 2. 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 She will continue treatment with Salagen, 5 mg at bedtime. 3. She has chronic/persistent abscess in the left neck following her surgery/radiation, but it has been gradually healing. She continues regular follow-up at wound care. 4. Her TSH is mildly elevated, consistent with hypothyroidism. She will now start replacement therapy with levothyroxine 50 mcg daily. Signed By: Joao Coley M.D. <<Signature on File>>
[2020-12-07] MEDS: sodium chloride 0.9% 250 ML 125 ML IV (15:18)
== END 2020-12-09 23:59 | disposition home or self-care (01) ==
LOC: ONCMED 05:49
PROVIDERS: PCP Family Medicine; Visit Provider Internal Medicine Medical Oncology
DX: Z51.12 Encounter for antineoplastic immunotherapy (principal); C03.1 Malignant neoplasm of lower gum; C77.0 Secondary and unspecified malignant neoplasm of lymph nodes of head, face and neck; I10 Essential (primary) hypertension; E78.5 Hyperlipidemia, unspecified; I48.20 Chronic atrial fibrillation, unspecified; I65.22 Occlusion and stenosis of left carotid artery; D86.9 Sarcoidosis, unspecified; G62.9 Polyneuropathy, unspecified; F41.9 Anxiety disorder, unspecified; F32.9 Major depressive disorder, single episode, unspecified; K57.92 Diverticulitis of intestine, part unspecified, without perforation or abscess without bleeding; Z96.641 Presence of right artificial hip joint; Z79.899 Other long term (current) drug therapy
CPT/HCPCS: 36415; 80053; 84439; 84443; 85025; 96413; 99214; J7050; J9271

== ENCOUNTER 2020-12-18 10:07 | Outpatient (CLI) | payer MEDICARE, OTHER, SELFPAY | END 2020-12-18 10:08 | disposition home or self-care (01) | LOC: WOUND 10:08 | PROVIDERS: PCP Family Medicine; Visit Provider Nurse Practitioner Family | DX: T81.89XA Other complications of procedures, not elsewhere classified, initial encounter (principal); Y83.8 Other surgical procedures as the cause of abnormal reaction of the patient, or of later complication, without mention of misadventure at the time of the procedure | CPT/HCPCS: 99212 ==

== ENCOUNTER 2020-12-28 05:46 | Outpatient (RCR) | payer MEDICARE, OTHER, SELFPAY ==
[2020-12-28 09:26] LABS: Basophils % 0.7 %; Eosinophils # 0.3 10^3/uL (0.0-0.8); Eosinophils % 4.7 %; Hematocrit 39.6 % (37.0-47.0); Hemoglobin 12.5 g/dL (11.5-15.3); Lymphocytes # 0.6 10^3/uL (0.8-4.8); Lymphocytes % 9.8 %; Mean Corpuscular HGB Conc 31.6 g/dL (30.0-36.0); Mean Corpuscular Hemoglobin 29.1 pg (28.0-34.0); Mean Corpuscular Volume 92.3 fl (81-99); Mean Platelet Volume 10.2 fL (7.4-10.4); Monocytes # 0.5 10^3/uL (0.2-0.9); Monocytes % 8.6 %; Neutrophils # 4.49 10^3/uL (1.8-7.7); Nucleated Red Blood Cells % 0 %; Platelet Count 259 10^3/cmm (130-400); Red Blood Count 4.29 10^6/uL (4.1-5.3); Red Cell Distribution Width 14.1 % (12.1-15.1); White Blood Count 5.9 10^3/uL (4.0-10.0)
[2020-12-28 10:52] LABS: Alanine Aminotransferase 21 U/L (0-33); Albumin Level 3.8 g/dL (3.5-5.2); Alkaline Phosphatase 144 IU/L (35-105); Anion Gap 13.1 (5-19); Aspartate Amino Transferase 28 U/L (0-32); Blood Urea Nitrogen 20 mg/dL (8-23); Calcium 9.2 mg/dL (8.5-10.5); Carbon Dioxide 27 mmol/L (22-29); Chloride 100 mmol/L (98-107); Globulin 3.6 g/dL (1.3-4.6); Glucose 124 mg/dL (65-115); Osmolality Calculated 286 mOsm/kg (285-295); Potassium 4.1 mmol/L (3.5-5.1); Sodium 136 mmol/L (136-145); Total Bilirubin 0.5 mg/dL (0.15-1.2); Total Protein 7.4 g/dL (6.6-8.7)
--- NOTE | 2020-12-28 19:41 | ONC FU_ITS ---
Dr. Coley Patient Follow-Up Note Patient: Lian Posada Unit #: [id number]: 1940 Dicatated By: Joao Coley M.D.Date of Visit:Dec 28, 2020 Onc Med Follow-up/Prog Note Chief Complaint: Gingival cancer. 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 She had previously been treated here for sarcoidosis. She had then presented with pain in the left mandible following a dental extraction in January 2019. It had continued to worsen despite several rounds of antibiotic therapy. By June 2019 she had developed a mass on the left side of the neck. She was seen by Dr. Tobias, and she was noted to have a lesion involving the left lower gingiva. CT of the neck showed a heterogeneously enhancing mass with central necrosis involving the left submandibular space with mass-effect in the anterior aspect of the submandibular gland. Atherosclerotic changes were noted in the carotid bulb bilaterally. FNA biopsy of the gingival lesion showed keratosis with moderate atypia and foci suspicious for well-differentiated invasive squamous cell carcinoma. FNA biopsy of the left neck mass showed necroinflammatory changes with rare cells suspicious for metastatic carcinoma. She was then seen for further management by Dr. Sherry Chacon in [place], [place], and she was recommended to undergo definitive surgery. However, her further evaluation with CT angiogram of the neck on 07/14/2019 showed severe stenosis involving the left internal carotid artery, estimated at 80%. Staging PET/CT on 07/23/2019 showed intense uptake at the left floor of the mouth with the osseous involvement of the mandible. There was left submandibular adenopathy with extracapsular extension into the submandibular gland. There was borderline upper abdominal adenopathy without F DG uptake, presumed to be reactive. There was no evidence of distant metastatic disease. She then underwent stenting of the left carotid artery, causing a delay in her definitive surgery. As such, it was opted to give her neoadjuvant chemotherapy with weekly carboplatin and paclitaxel in combination with Erbitux. She was not able to complete the Erbitux because of a hypersensitivity reaction to the test dose, but she did complete 1 cycle of treatment with carboplatin/paclitaxel on 08/12/2019. On 09/01/2019 she underwent segmental mandibulectomy, floor of mouth resection, neck dissection, tracheostomy, and pectoralis flap reconstruction. She also had a PEG tube placed. She tolerated the surgery well. Pathology showed grade 2 squamous cell carcinoma involving the left lower gingiva. The tumor measured 2.5 cm with a 3 mm depth of invasion. There was superficial direct invasion through the cortex of the mandible. There was evidence of cystic metastatic squamous cell carcinoma involving submandibular soft tissue measuring 4.5 cm, presumed to be extranodal. The closest surgical margin was 3 mm. There was involvement in 3/12 lymph nodes, the largest measuring 0.5 cm. Extranodal extension was not identified. Pathologic staging was pT4a, pN2b, M1. Her postoperative course was complicated by delayed healing of her pectoralis wound and by a fall at home resulting in a right femoral neck fracture. She underwent bipolar arthroplasty of the right hip on 11/15/2019. At discharge she initially went to [facility] for further rehabilitation, but she was then able to return to her own home. She was seen for follow-up here on 12/23/2019. Due to the lymph node involvement and the metastatic involvement in the left submandibular soft tissue, she was recommended to have postoperative adjuvant radiation. I recommended against concurrent chemotherapy due to her multiple comorbidities and marginal performance status. She completed radiation on 03/07/2020 to a total dose of 6000 cGy administered in 30 fractions. The treatment field included the oral cavity and both sides of the neck. A restaging PET/CT on 07/01/2020 showed activity in the left mandibular resection bed consistent with postsurgical inflammation. There also appeared to be inflammatory activity at the left hyoid. A region of discrete increased activity in the left cervical level IV soft tissue measuring 8 mm, SUV 5.0, was felt to be suspicious for recurrence. Also noted on that study were bilateral interstitial lung infiltrates or fibrosis. There were no other areas of significant FDG uptake. She had surgical oncology follow-up with [facility] on 07/21/2020. She underwent biopsy of the left cervical lymph node on 07/27/2020. Pathology showed moderately differentiated squamous cell carcinoma, focally necrotic. After further discussion with Dr. Chacon, it was recommended that she return here for consideration of systemic therapy, as it was felt that she was not medically suitable for an extensive surgical resection. Her restaging neck CT on 09/08/2020 showed extensive prior postoperative changes of left partial mandibulectomy/flap reconstruction/radical neck dissection. A new peripheral enhancing fluid collection consistent with abscess was noted within the superficial flap and 2 smaller peripheral enhancing low-attenuation collections were noted in the lower left neck and along the right hyoid bone. There was significant edema in the left neck soft tissues. Chest CT on 09/11/2020 showed chronic emphysema with pulmonary fibrosis and chronic interstitial lung disease. There were no metastatic lesions identified. Small nodes in the mediastinum at the celiac axis appeared stable. With those findings, she was recommended to begin a trial of immunotherapy with pembrolizumab. Her other medical illnesses, in addition to the sarcoidosis, include hypertension, hyperlipidemia, atrial fibrillation and peripheral neuropathy. She has a history of diverticulitis, and she also has a history of anxiety/depression. She is a non-smoker. INTERIM HISTORY: She began cycle 1 of pembrolizumab on 09/14/2020. She tolerated the initial infusion without any adverse effects. She then continued treatment at 3-week intervals. As of 12/07/2020 she completed her 5th cycle. She is seen for a follow-up visit. She has been feeling pretty good generally. Her activity is still limited, but her energy is a little better. ECOG score is 1. Her appetite also has improved. Her weight is stable. She complains that her mouth driver and it stays tender. She has difficulty chewing. She is able to swallow OK. She does not complain of cough. She has no shortness of breath or chest pain. She has no GI or complaints. She has some joint pain, adequately managed with Tylenol. She does not complain of headache. She has a tendency to stumble, but has not had anymore falls. She sometimes has numbness/tingling. Medications: Benadryl Allergy 1 Tablet (of 25 mg) Oral daily, Carvedilol 1 Tablet (of 6.25 mg) Oral daily, Clopidogrel Bisulfate 1 Tablet (of 75 mg) Oral daily, Levothyroxine Sodium 1 Tablet (of 50 mcg) Oral daily, Nystatin Suspension Mouth/throat PRN, Salagen (5 mg) Tablet Oral t.i.d., Zoloft 1 (100 mg) Tablet Oral daily Allergies: PCN-Anaphylaxsis and Sulfa. Vital Signs: Performed on Dec 28, 2020 10:34 Height - 63.00 in Weight - 108.8 lbs (HIGH) BSA - 1.49 sq.m BMI - 19.27 Temperature - 97.7 F (LOW) Pulse - 97 /min Respiration - 18 /min BP - 127/70 mm(hg) O2 Sat - 95 % (LOW) Pain - 0 Fatigue - 8 Physical Examination: Constitutional - She looks pretty good generally, Eyes - Sclerae nonicteric. Conjunctivae clear, ENMT - Mouth is dry. There are no lesions noted in the oral cavity, Neck - There is soft tissue swelling and induration on both sides of the neck, more prominently on the left. There is no mass palpable, Hematologic/Lymphatic - No cervical, clavicular, or axillary adenopathy noted, Respiratory - Lungs are clear with good air movement bilaterally, Cardiovascular - Heart rhythm is regular. There is no murmur, gallop, or rub noted, Abdomen - Soft. Liver and spleen are not enlarged. There is no abdominal mass or ascites noted and there is no inguinal adenopathy, Extremities - No edema, Integumentary - The left cheek wound has now completely healed. There is slight exudate at the wound in the left breast/chest wall, Neurologic - No focal neurologic deficits noted. Lab/Imaging: Test performed on Dec 28, 2020 10:19 Sodium 136 mmol/L Potassium 4.1 mmol/L Chloride 100 mmol/L CO2 27 mmol/L Anion Gap 13.1 BUN 20 mg/dL Creatinine 0.5 mg/dL Cr Clearance (Est) 69.9100 mL/min Glucose 124 mg/dL Osmolality - Calculated 286 mOsm/kg Calcium 9.2 mg/dL Protein, Total 7.4 g/dL Albumin 3.8 g/dL Globulin 3.6 g/dL Bilirubin, Total 0.5 mg/dL ALT (SGPT) 21 U/L AST (SGOT) 28 U/L Alkaline Phosphatase 144 IU/L Test performed on Dec 28, 2020 08:50 WBC 5.9 10 3/uL RBC 4.29 10 6/uL HGB 12.5 g/dL HCT 39.6 % MCV 92.3 fl MCH 29.1 pg MCHC 31.6 g/dL RDW 14.1 % Platelet Count 259 10 3/cmm MPV 10.2 fL Neutrophils 4.49 10 3/uL Lymphocytes 0.6 10 3/uL Monocytes 0.5 10 3/uL Eosinophils 0.3 10 3/uL Basophils 0.0 10 3/uL Neutrophil % 76.0 % Lymphocyte % 9.8 % Monocyte % 8.6 % Eosinophil % 4.7 % Basophils % 0.7 % NRBC % 0 % Problem List: 1. 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 She now has biopsy proven recurrence in a left level IV cervical lymph node. 2. Hypertension. 3. Hyperlipidemia. 4. Atrial fibrillation. 5. Carotid artery stenosis requiring stenting of the left carotid artery. 6. Sarcoidosis. 7. Peripheral neuropathy. 8. History of diverticulitis. 9. History of traumatic right femoral neck fracture requiring bipolar right hip arthroplasty on 11/15/2019. 10. Anxiety/depression. Problems Addressed with this Encounter and Plan: 1. 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 Due to surgery being delayed for stenting of the left carotid artery, she began neoadjuvant chemotherapy with weekly Erbitux, carboplatin, and paclitaxel. Treatment was limited to 1 cycle of carboplatin/paclitaxel. Erbitux was not administered due to a hypersensitivity reaction to the test dose. She then underwent segmental mandibulectomy, floor of mouth resection, neck dissection, tracheostomy, and pectoralis flap reconstruction on 09/01/2019. She also underwent placement of PEG tube. Pathologic staging was pT4a, pN2b, M1. Her postoperative course was complicated by delayed healing of her pectoralis wound and by a fall at home resulting in a right femoral neck fracture. She underwent bipolar arthroplasty of the right hip on 11/15/2019. She was seen for follow-up here on 12/23/2019. Due to the lymph node involvement and the metastatic involvement in the left submandibular soft tissue, she was recommended to have postoperative adjuvant radiation. Concurrent chemotherapy was not recommended due to her multiple comorbidities and marginal performance status. She completed radiation on 03/07/2020 to a total dose of 6000 cGy administered in 30 fractions. The treatment field included the oral cavity and both sides of the neck. A restaging PET/CT on 07/01/2020 showed a region of discrete increased activity in the left cervical level IV soft tissue measuring 8 mm, SUV 5.0, was felt to be suspicious for recurrence. There were no other areas of suspicious FDG uptake. Biopsy of the left cervical lymph node on 07/27/2020 confirmed moderately differentiated squamous cell carcinoma, focally necrotic. It was the opinion of her surgeon, Dr. Chacon, that she was not medically suitable for an extensive surgical resection. As such, she was recommended to proceed with a trial of immunotherapy. She then began cycle 1 of pembrolizumab on 09/14/2020. She reported some increased fatigue following that treatment, but she had no other apparent adverse effects. She then continued treatment at 3-week intervals. She has now completed 5 cycles of treatment. She continues to tolerate it well. She appears to be showing gradual improvement in performance status. She will proceed now with cycle 6 of pembrolizumab at 200 mg by IV infusion. She will return for treatment in 3 weeks and for a follow-up visit in 6 weeks. 2. 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 She will continue treatment with Salagen, 5 mg at bedtime. 3. She has chronic/persistent abscess in the left neck following her surgery/radiation, but it has been gradually healing. She continues regular follow-up at wound care. 4. She had mildly elevated TSH, consistent with hypothyroidism. She will is on replacement therapy with levothyroxine. Signed By: Joao Coley M.D. <<Signature on File>>
== END 2021-01-09 23:59 | disposition home or self-care (01) ==
LOC: ONCMED 05:46
PROVIDERS: PCP Family Medicine; Visit Provider Internal Medicine Medical Oncology
DX: Z51.12 Encounter for antineoplastic immunotherapy (principal); C00.1 Malignant neoplasm of external lower lip; C77.0 Secondary and unspecified malignant neoplasm of lymph nodes of head, face and neck; I10 Essential (primary) hypertension; E78.5 Hyperlipidemia, unspecified; I48.91 Unspecified atrial fibrillation; I65.22 Occlusion and stenosis of left carotid artery; D86.9 Sarcoidosis, unspecified; G62.9 Polyneuropathy, unspecified; F41.9 Anxiety disorder, unspecified; F32.9 Major depressive disorder, single episode, unspecified; Z87.19 Personal history of other diseases of the digestive system; Z79.899 Other long term (current) drug therapy
CPT/HCPCS: 80053; 85025; 96413; 99214; J7050; J9271

== ENCOUNTER 2021-01-08 10:22 | Outpatient (CLI) | payer MEDICARE, OTHER, SELFPAY | END 2021-01-08 10:23 | disposition home or self-care (01) | LOC: WOUND 10:23 | PROVIDERS: PCP Family Medicine; Visit Provider Emergency Medicine | DX: L98.492 Non-pressure chronic ulcer of skin of other sites with fat layer exposed (principal) | CPT/HCPCS: 11042 ==

== ENCOUNTER 2021-01-22 11:15 | Outpatient (CLI) | payer MEDICARE, OTHER, SELFPAY | END 2021-01-22 11:16 | disposition home or self-care (01) | LOC: WOUND 11:16 | PROVIDERS: PCP Family Medicine; Visit Provider Emergency Medicine | DX: T81.89XA Other complications of procedures, not elsewhere classified, initial encounter (principal); Y83.8 Other surgical procedures as the cause of abnormal reaction of the patient, or of later complication, without mention of misadventure at the time of the procedure | CPT/HCPCS: 11042 ==

== ENCOUNTER 2021-02-08 06:22 | Outpatient (RCR) | payer MEDICARE, OTHER, SELFPAY ==
[2021-01-18] MEDS: sodium chloride 0.9% 250 ML 125 ML IV (15:01)
[2021-02-08 09:33] LABS: Basophils % 0.7 %; Eosinophils # 0.3 10^3/uL (0.0-0.8); Eosinophils % 5.1 %; Hematocrit 38.5 % (37.0-47.0); Hemoglobin 12.6 g/dL (11.5-15.3); Lymphocytes # 0.7 10^3/uL (0.8-4.8); Lymphocytes % 11.6 %; Mean Corpuscular HGB Conc 32.7 g/dL (30.0-36.0); Mean Corpuscular Hemoglobin 30.4 pg (28.0-34.0); Mean Platelet Volume 9.6 fL (7.4-10.4); Monocytes # 0.7 10^3/uL (0.2-0.9); Monocytes % 11.3 %; Neutrophils # 4.34 10^3/uL (1.8-7.7); Neutrophils % 71.1 %; Nucleated Red Blood Cells % 0 %; Platelet Count 226 10^3/cmm (130-400); Red Blood Count 4.14 10^6/uL (4.1-5.3); Red Cell Distribution Width 13.3 % (12.1-15.1); White Blood Count 6.1 10^3/uL (4.0-10.0)
[2021-02-08 12:49] LABS: Albumin Level 3.5 g/dL (3.5-5.2); Alkaline Phosphatase 117 IU/L (35-105); Blood Urea Nitrogen 14 mg/dL (8-23); Calcium 8.6 mg/dL (8.5-10.5); Carbon Dioxide 25 mmol/L (22-29); Chloride 98 mmol/L (98-107); Globulin 3.3 g/dL (1.3-4.6); Glucose 86 mg/dL (65-115); Osmolality Calculated 274 mOsm/kg (285-295); Sodium 132 mmol/L (136-145); Total Bilirubin 0.5 mg/dL (0.15-1.2); Total Protein 6.8 g/dL (6.6-8.7)
[2021-02-08 12:50] LABS: Alanine Aminotransferase 21 U/L (0-33); Anion Gap 13.1 (5-19); Aspartate Amino Transferase 31 U/L (0-32); Potassium 4.1 mmol/L (3.5-5.1)
--- NOTE | 2021-02-08 20:01 | ONC FU_ITS ---
Dr. Coley Patient Follow-Up Note Patient: Lian Posada Unit #: [id number]: [id number] Dicatated By: Joao Coley M.D.Date of Visit:Feb 08, 2021 Onc Med Follow-up/Prog Note Chief Complaint: Gingival cancer. 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 She had previously been treated here for sarcoidosis. She had then presented with pain in the left mandible following a dental extraction in January 2019. It had continued to worsen despite several rounds of antibiotic therapy. By June 2019 she had developed a mass on the left side of the neck. She was seen by Dr. Tobias, and she was noted to have a lesion involving the left lower gingiva. CT of the neck showed a heterogeneously enhancing mass with central necrosis involving the left submandibular space with mass-effect in the anterior aspect of the submandibular gland. Atherosclerotic changes were noted in the carotid bulb bilaterally. FNA biopsy of the gingival lesion showed keratosis with moderate atypia and foci suspicious for well-differentiated invasive squamous cell carcinoma. FNA biopsy of the left neck mass showed necroinflammatory changes with rare cells suspicious for metastatic carcinoma. She was then seen for further management by Dr. Sherry Chacon in [place], [place], and she was recommended to undergo definitive surgery. However, her further evaluation with CT angiogram of the neck on 07/14/2019 showed severe stenosis involving the left internal carotid artery, estimated at 80%. Staging PET/CT on 07/23/2019 showed intense uptake at the left floor of the mouth with the osseous involvement of the mandible. There was left submandibular adenopathy with extracapsular extension into the submandibular gland. There was borderline upper abdominal adenopathy without FDG uptake, presumed to be reactive. There was no evidence of distant metastatic disease. She then underwent stenting of the left carotid artery, causing a delay in her definitive surgery. As such, it was opted to give her neoadjuvant chemotherapy with weekly carboplatin and paclitaxel in combination with Erbitux. She was not able to complete the Erbitux because of a hypersensitivity reaction to the test dose, but she did complete 1 cycle of treatment with carboplatin/paclitaxel on 08/12/2019. On 09/01/2019 she underwent segmental mandibulectomy, floor of mouth resection, neck dissection, tracheostomy, and pectoralis flap reconstruction. She also had a PEG tube placed. She tolerated the surgery well. Pathology showed grade 2 squamous cell carcinoma involving the left lower gingiva. The tumor measured 2.5 cm with a 3 mm depth of invasion. There was superficial direct invasion through the cortex of the mandible. There was evidence of cystic metastatic squamous cell carcinoma involving submandibular soft tissue measuring 4.5 cm, presumed to be extranodal. The closest surgical margin was 3 mm. There was involvement in 3/12 lymph nodes, the largest measuring 0.5 cm. Extranodal extension was not identified. Pathologic staging was pT4a, pN2b, M1. Her postoperative course was complicated by delayed healing of her pectoralis wound and by a fall at home resulting in a right femoral neck fracture. She underwent bipolar arthroplasty of the right hip on 11/15/2019. At discharge she initially went to [facility] for further rehabilitation, but she was then able to return to her own home. She was seen for follow-up here on 12/23/2019. Due to the lymph node involvement and the metastatic involvement in the left submandibular soft tissue, she was recommended to have postoperative adjuvant radiation. I recommended against concurrent chemotherapy due to her multiple comorbidities and marginal performance status. She completed radiation on 03/07/2020 to a total dose of 6000 cGy administered in 30 fractions. The treatment field included the oral cavity and both sides of the neck. A restaging PET/CT on 07/01/2020 showed activity in the left mandibular resection bed consistent with postsurgical inflammation. There also appeared to be inflammatory activity at the left hyoid. A region of discrete increased activity in the left cervical level IV soft tissue measuring 8 mm, SUV 5.0, was felt to be suspicious for recurrence. Also noted on that study were bilateral interstitial lung infiltrates or fibrosis. There were no other areas of significant FDG uptake. She had surgical oncology follow-up with [facility] on 07/21/2020. She underwent biopsy of the left cervical lymph node on 07/27/2020. Pathology showed moderately differentiated squamous cell carcinoma, focally necrotic. After further discussion with Dr. Chacon, it was recommended that she return here for consideration of systemic therapy, as it was felt that she was not medically suitable for an extensive surgical resection. Her restaging neck CT on 09/08/2020 showed extensive prior postoperative changes of left partial mandibulectomy/flap reconstruction/radical neck dissection. A new peripheral enhancing fluid collection consistent with abscess was noted within the superficial flap and 2 smaller peripheral enhancing low-attenuation collections were noted in the lower left neck and along the right hyoid bone. There was significant edema in the left neck soft tissues. Chest CT on 09/11/2020 showed chronic emphysema with pulmonary fibrosis and chronic interstitial lung disease. There were no metastatic lesions identified. Small nodes in the mediastinum at the celiac axis appeared stable. With those findings, she was recommended to begin a trial of immunotherapy with pembrolizumab. Her other medical illnesses, in addition to the sarcoidosis, include hypertension, hyperlipidemia, atrial fibrillation and peripheral neuropathy. She has a history of diverticulitis, and she also has a history of anxiety/depression. She is a non-smoker. INTERIM HISTORY: She began cycle 1 of pembrolizumab on 09/14/2020. She tolerated the initial infusion without any adverse effects. She then continued treatment at 3-week intervals. During follow-up she was found to have hypothyroidism, for which she began on thyroid replacement therapy. She otherwise tolerated the treatment very well. As of 01/18/2021 she completed her 7th cycle. She is seen for a follow-up visit. She has been feeling pretty good generally. Her energy is somewhat variable, but it has improved since she started the thyroid replacement. She is doing some light work. ECOG score is 1. Her appetite lately has been better, though she still has difficulty chewing and swallowing. She did get new upper teeth, which is helping. Her weight is up a couple of pounds. She does not have fever or night sweats. She has no shortness of breath, cough, or chest pain. She has no GI or complaints. She has no significant joint or bone pain. She does not complain of headache. She has ongoing issues with balance/equilibrium. She has no numbness/paresthesia or other focal neurologic symptoms. Medications: Benadryl Allergy 1 Tablet (of 25 mg) Oral daily, Clopidogrel Bisulfate 1 Tablet (of 75 mg) Oral daily, Levothyroxine Sodium 1 Tablet (of 50 mcg) Oral daily, Zoloft 1 (100 mg) Tablet Oral daily Allergies: PCN-Anaphylaxsis and Sulfa. Vital Signs: Performed on Feb 08, 2021 10:40 Height - 63.00 in Weight - 110.2 lbs (HIGH) BSA - 1.50 sq.m BMI - 19.52 Temperature - 98.2 F (LOW) Pulse - 89 /min Respiration - 20 /min BP - 126/72 mm(hg) O2 Sat - 96 % Pain - 0 Fatigue - 5 Physical Examination: Constitutional - She looks pretty good generally, Eyes - Sclerae nonicteric. Conjunctivae clear, ENMT - Mouth is dry. There are no lesions noted in the oral cavity, Neck - There is soft tissue swelling and induration on both sides of the neck, more prominently on the left. There is no mass palpable, Hematologic/Lymphatic - No cervical, clavicular, or axillary adenopathy noted, Respiratory - Lungs are clear with good air movement bilaterally, Cardiovascular - Heart rhythm is regular. There is no murmur, gallop, or rub noted, Abdomen - Soft. Liver and spleen are not enlarged. There is no abdominal mass or ascites noted and there is no inguinal adenopathy, Extremities - No edema, Integumentary - The left cheek wound has completely healed, Neurologic - No focal neurologic deficits noted. Lab/Imaging: Test performed on Feb 08, 2021 11:08 Sodium 132 mmol/L Potassium 4.1 mmol/L Chloride 98 mmol/L CO2 25 mmol/L Anion Gap 13.1 BUN 14 mg/dL Creatinine 0.3 mg/dL Cr Clearance (Est) 118.0200 mL/min Glucose 86 mg/dL Osmolality - Calculated 274 mOsm/kg Calcium 8.6 mg/dL Protein, Total 6.8 g/dL Albumin 3.5 g/dL Globulin 3.3 g/dL Bilirubin, Total 0.5 mg/dL ALT (SGPT) 21 U/L AST (SGOT) 31 U/L Alkaline Phosphatase 117 IU/L Test performed on Feb 08, 2021 09:26 WBC 6.1 10 3/uL RBC 4.14 10 6/uL HGB 12.6 g/dL HCT 38.5 % MCV 93.0 fl MCH 30.4 pg MCHC 32.7 g/dL RDW 13.3 % Platelet Count 226 10 3/cmm MPV 9.6 fL Neutrophils 4.34 10 3/uL Lymphocytes 0.7 10 3/uL Monocytes 0.7 10 3/uL Eosinophils 0.3 10 3/uL Basophils 0.0 10 3/uL Neutrophil % 71.1 % Lymphocyte % 11.6 % Monocyte % 11.3 % Eosinophil % 5.1 % Basophils % 0.7 % NRBC % 0 % Problem List: 1. 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 She now has biopsy proven recurrence in a left level IV cervical lymph node. 2. Hypertension. 3. Hyperlipidemia. 4. Atrial fibrillation. 5. Carotid artery stenosis requiring stenting of the left carotid artery. 6. Sarcoidosis. 7. Peripheral neuropathy. 8. History of diverticulitis. 9. History of traumatic right femoral neck fracture requiring bipolar right hip arthroplasty on 11/15/2019. 10. Anxiety/depression. Problems Addressed with this Encounter and Plan: 1. 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 Due to surgery being delayed for stenting of the left carotid artery, she began neoadjuvant chemotherapy with weekly Erbitux, carboplatin, and paclitaxel. Treatment was limited to 1 cycle of carboplatin/paclitaxel. Erbitux was not administered due to a hypersensitivity reaction to the test dose. She then underwent segmental mandibulectomy, floor of mouth resection, neck dissection, tracheostomy, and pectoralis flap reconstruction on 09/01/2019. She also underwent placement of PEG tube. Pathologic staging was pT4a, pN2b, M1. Her postoperative course was complicated by delayed healing of her pectoralis wound and by a fall at home resulting in a right femoral neck fracture. She underwent bipolar arthroplasty of the right hip on 11/15/2019. She was seen for follow-up here on 12/23/2019. Due to the lymph node involvement and the metastatic involvement in the left submandibular soft tissue, she was recommended to have postoperative adjuvant radiation. Concurrent chemotherapy was not recommended due to her multiple comorbidities and marginal performance status. She completed radiation on 03/07/2020 to a total dose of 6000 cGy administered in 30 fractions. The treatment field included the oral cavity and both sides of the neck. A restaging PET/CT on 07/01/2020 showed a region of discrete increased activity in the left cervical level IV soft tissue measuring 8 mm, SUV 5.0, was felt to be suspicious for recurrence. There were no other areas of suspicious FDG uptake. Biopsy of the left cervical lymph node on 07/27/2020 confirmed moderately differentiated squamous cell carcinoma, focally necrotic. It was the opinion of her surgeon, Dr. Chacon, that she was not medically suitable for an extensive surgical resection. As such, she was recommended to proceed with a trial of immunotherapy. She then began cycle 1 of pembrolizumab on 09/14/2020. She reported some increased fatigue following that treatment, but she had no other apparent adverse effects. She then continued treatment at 3-week intervals. She has now completed 7 cycles of treatment. She continues to tolerate it well and during treatment she has had some gradual improvement in performance status. By clinical evaluation there has been no obvious disease progression. She will proceed now with cycle 8 of pembrolizumab at 200 mg by IV infusion. She will return for treatment in 3 weeks and for a follow-up visit in 6 weeks. 2. 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 She will continue treatment with Salagen, 5 mg at bedtime. 3. She had chronic/persistent abscess in the left neck following her surgery/radiation, but it has shown gradually healing. She continues regular follow-up at wound care. 4. She had mildly elevated TSH, consistent with hypothyroidism. She is on replacement therapy with levothyroxine. Signed By: Joao Coley M.D. <<Signature on File>>
== END 2021-02-08 23:59 | disposition home or self-care (01) ==
LOC: ONCMED 06:22
PROVIDERS: PCP Family Medicine; Visit Provider Internal Medicine Medical Oncology
DX: Z51.12 Encounter for antineoplastic immunotherapy (principal); C03.1 Malignant neoplasm of lower gum; C77.0 Secondary and unspecified malignant neoplasm of lymph nodes of head, face and neck; I10 Essential (primary) hypertension; E78.5 Hyperlipidemia, unspecified; I48.20 Chronic atrial fibrillation, unspecified; I65.22 Occlusion and stenosis of left carotid artery; D86.9 Sarcoidosis, unspecified; G62.9 Polyneuropathy, unspecified; F41.9 Anxiety disorder, unspecified; F32.9 Major depressive disorder, single episode, unspecified; Z96.641 Presence of right artificial hip joint; Z87.19 Personal history of other diseases of the digestive system; Z79.899 Other long term (current) drug therapy
CPT/HCPCS: 80053; 85025; 96413; 99215; J7050; J9271

== ENCOUNTER 2021-02-12 10:33 | Outpatient (CLI) | payer MEDICARE, OTHER, SELFPAY | END 2021-02-12 10:34 | disposition home or self-care (01) | LOC: WOUND 10:34 | PROVIDERS: PCP Family Medicine; Visit Provider Emergency Medicine | DX: T81.89XA Other complications of procedures, not elsewhere classified, initial encounter (principal); Y83.8 Other surgical procedures as the cause of abnormal reaction of the patient, or of later complication, without mention of misadventure at the time of the procedure | CPT/HCPCS: 11042 ==

== ENCOUNTER 2021-02-26 10:18 | Outpatient (CLI) | payer MEDICARE, OTHER, SELFPAY | END 2021-02-26 10:19 | disposition home or self-care (01) | LOC: WOUND 10:21 | PROVIDERS: PCP Family Medicine; Visit Provider Emergency Medicine | DX: T81.89XA Other complications of procedures, not elsewhere classified, initial encounter (principal); Y83.8 Other surgical procedures as the cause of abnormal reaction of the patient, or of later complication, without mention of misadventure at the time of the procedure | CPT/HCPCS: 11042 ==

== ENCOUNTER 2021-03-01 06:38 | Outpatient (RCR) | payer MEDICARE, OTHER, SELFPAY ==
[2021-02-09 09:33] LABS: Thyroid Stimulating Hormone 3.58 uIU/mL (0.27-4.20)
== END 2021-03-11 23:59 | disposition home or self-care (01) ==
LOC: ONCMED 06:38
PROVIDERS: PCP Family Medicine; Visit Provider Internal Medicine Medical Oncology
DX: Z51.12 Encounter for antineoplastic immunotherapy (principal); C03.1 Malignant neoplasm of lower gum; C77.0 Secondary and unspecified malignant neoplasm of lymph nodes of head, face and neck; E03.9 Hypothyroidism, unspecified
CPT/HCPCS: 84443; 96413; J7050; J9271

== ENCOUNTER 2021-03-19 10:22 | Outpatient (CLI) | payer MEDICARE, OTHER, SELFPAY | END 2021-03-19 10:23 | disposition home or self-care (01) | LOC: WOUND 10:25 | PROVIDERS: PCP Family Medicine; Visit Provider Nurse Practitioner Family | DX: Z09 Encounter for follow-up examination after completed treatment for conditions other than malignant neoplasm (principal) | CPT/HCPCS: 99212 ==

== ENCOUNTER 2021-03-21 05:57 | Outpatient (RCR) | payer MEDICARE, OTHER, SELFPAY ==
[2021-03-21 10:54] LABS: Basophils % 0.8 %; Eosinophils # 0.3 10^3/uL (0.0-0.8); Eosinophils % 5.1 %; Hematocrit 36.9 % (37.0-47.0); Hemoglobin 12.4 g/dL (11.5-15.3); Lymphocytes # 0.6 10^3/uL (0.8-4.8); Lymphocytes % 11.5 %; Mean Corpuscular HGB Conc 33.6 g/dL (30.0-36.0); Mean Corpuscular Hemoglobin 30.2 pg (28.0-34.0); Mean Platelet Volume 9.7 fL (7.4-10.4); Monocytes # 0.6 10^3/uL (0.2-0.9); Monocytes % 10.6 %; Neutrophils % 71.8 %; Nucleated Red Blood Cells % 0 %; Platelet Count 230 10^3/cmm (130-400); Red Cell Distribution Width 13.3 % (12.1-15.1); White Blood Count 5.3 10^3/uL (4.0-10.0)
[2021-03-21 11:28] LABS: Alanine Aminotransferase 23 U/L (0-33); Albumin Level 3.8 g/dL (3.5-5.2); Alkaline Phosphatase 126 IU/L (35-105); Blood Urea Nitrogen 13 mg/dL (8-23); Calcium 9.3 mg/dL (8.5-10.5); Carbon Dioxide 25 mmol/L (22-29); Chloride 99 mmol/L (98-107); Free T4 Free Thyroxine 1.23 ng/dL (0.82-1.77); Globulin 3.4 g/dL (1.3-4.6); Glucose 122 mg/dL (65-115); Osmolality Calculated 279 mOsm/kg (285-295); Sodium 134 mmol/L (136-145); Total Bilirubin 0.6 mg/dL (0.15-1.2); Total Protein 7.2 g/dL (6.6-8.7)
[2021-03-21 11:32] LABS: Anion Gap 14.4 (5-19); Aspartate Amino Transferase 32 U/L (0-32); Potassium 4.4 mmol/L (3.5-5.1)
--- NOTE | 2021-04-08 12:43 | ONC FU_ITS ---
[facility] Patient Note Patient: Lian Posada Unit #: [id number]: 1940 Dictated By: Audelia WalkerDate of Visit: Mar 21, 2021 Onc MED Follow-Up/Prog Note Chief Complaint: Gingival cancer. 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 She had previously been treated here for sarcoidosis. She had then presented with pain in the left mandible following a dental extraction in January 2019. It had continued to worsen despite several rounds of antibiotic therapy. By June 2019 she had developed a mass on the left side of the neck. She was seen by Dr. Tobias, and she was noted to have a lesion involving the left lower gingiva. CT of the neck showed a heterogeneously enhancing mass with central necrosis involving the left submandibular space with mass-effect in the anterior aspect of the submandibular gland. Atherosclerotic changes were noted in the carotid bulb bilaterally. FNA biopsy of the gingival lesion showed keratosis with moderate atypia and foci suspicious for well-differentiated invasive squamous cell carcinoma. FNA biopsy of the left neck mass showed necroinflammatory changes with rare cells suspicious for metastatic carcinoma. She was then seen for further management by Dr. Sherry Chacon in [place], [place], and she was recommended to undergo definitive surgery. However, her further evaluation with CT angiogram of the neck on 07/14/2019 showed severe stenosis involving the left internal carotid artery, estimated at 80%. Staging PET/CT on 07/23/2019 showed intense uptake at the left floor of the mouth with the osseous involvement of the mandible. There was left submandibular adenopathy with extracapsular extension into the submandibular gland. There was borderline upper abdominal adenopathy without F DG uptake, presumed to be reactive. There was no evidence of distant metastatic disease. She then underwent stenting of the left carotid artery, causing a delay in her definitive surgery. As such, it was opted to give her neoadjuvant chemotherapy with weekly carboplatin and paclitaxel in combination with Erbitux. She was not able to complete the Erbitux because of a hypersensitivity reaction to the test dose, but she did complete 1 cycle of treatment with carboplatin/paclitaxel on 08/12/2019. On 09/01/2019 she underwent segmental mandibulectomy, floor of mouth resection, neck dissection, tracheostomy, and pectoralis flap reconstruction. She also had a PEG tube placed. She tolerated the surgery well. Pathology showed grade 2 squamous cell carcinoma involving the left lower gingiva. The tumor measured 2.5 cm with a 3 mm depth of invasion. There was superficial direct invasion through the cortex of the mandible. There was evidence of cystic metastatic squamous cell carcinoma involving submandibular soft tissue measuring 4.5 cm, presumed to be extranodal. The closest surgical margin was 3 mm. There was involvement in 3/12 lymph nodes, the largest measuring 0.5 cm. Extranodal extension was not identified. Pathologic staging was pT4a, pN2b, M1. Her postoperative course was complicated by delayed healing of her pectoralis wound and by a fall at home resulting in a right femoral neck fracture. She underwent bipolar arthroplasty of the right hip on 11/15/2019. At discharge she initially went to [facility] for further rehabilitation, but she was then able to return to her own home. She was seen for follow-up here on 12/23/2019. Due to the lymph node involvement and the metastatic involvement in the left submandibular soft tissue, she was recommended to have postoperative adjuvant radiation. Dr Coley recommended against concurrent chemotherapy due to her multiple comorbidities and marginal performance status. She completed radiation on 03/07/2020 to a total dose of 6000 cGy administered in 30 fractions. The treatment field included the oral cavity and both sides of the neck. A restaging PET/CT on 07/01/2020 showed activity in the left mandibular resection bed consistent with postsurgical inflammation. There also appeared to be inflammatory activity at the left hyoid. A region of discrete increased activity in the left cervical level IV soft tissue measuring 8 mm, SUV 5.0, was felt to be suspicious for recurrence. Also noted on that study were bilateral interstitial lung infiltrates or fibrosis. There were no other areas of significant FDG uptake. She had surgical oncology follow-up with [facility] on 07/21/2020. She underwent biopsy of the left cervical lymph node on 07/27/2020. Pathology showed moderately differentiated squamous cell carcinoma, focally necrotic. After further discussion with Dr. Chacon, it was recommended that she return here for consideration of systemic therapy, as it was felt that she was not medically suitable for an extensive surgical resection. Her restaging neck CT on 09/08/2020 showed extensive prior postoperative changes of left partial mandibulectomy/flap reconstruction/radical neck dissection. A new peripheral enhancing fluid collection consistent with abscess was noted within the superficial flap and 2 smaller peripheral enhancing low-attenuation collections were noted in the lower left neck and along the right hyoid bone. There was significant edema in the left neck soft tissues. Chest CT on 09/11/2020 showed chronic emphysema with pulmonary fibrosis and chronic interstitial lung disease. There were no metastatic lesions identified. Small nodes in the mediastinum at the celiac axis appeared stable. With those findings, she was recommended to begin a trial of immunotherapy with pembrolizumab. Her other medical illnesses, in addition to the sarcoidosis, include hypertension, hyperlipidemia, atrial fibrillation and peripheral neuropathy. She has a history of diverticulitis, and she also has a history of anxiety/depression. She is a non-smoker. INTERIM HISTORY: She began cycle 1 of pembrolizumab on 09/14/2020. She tolerated the initial infusion without any adverse effects. She then continued treatment at 3-week intervals. During follow-up she was found to have hypothyroidism, for which she began on thyroid replacement therapy. She otherwise tolerated the treatment very well. As of 03/01/2021 she completed her 9th cycle. Ms. Posada is here today for follow-up. She states overall she is doing well. She states she has been discharged from wound care as her wound has healed. She states that it has just taken over 18 months but she is ecstatic. She is in very good spirits today. She is very jovial. She is accompanied by her daughter. She denies any new concerns today. She denies any fever or chills. She denies any new shortness of breath or cough. She denies any hemoptysis. She states that she is eating good. Her energy is good. She denies chest pain or palpitations. She denies nausea vomiting diarrhea or constipation. She denies any lower extremity edema. Her daughter states that she has not seen any signs of confusion, headaches, vision changes or any neurological changes. Overall they both state that she is doing great. Her ECOG is 0. Past Medical History: Anxiety/depression Atrial fibrillation Carotid stenosis History of diverticulitis Hyperlipidemia Hypertension Peripheral neuropathy Sarcoidosis Past Surgical History: Bladder tuck Hysterectomy/bilateral salpingectomy-oophorectomy Left breast biopsy for benign disease Peg tube placement Tonsillectomy Covid vaccine #3 in 2020 Covid vaccine #2 in 2020 Covid vaccine #1 in 2019 Bipolar right hip arthroplasty in 2019 Left hemimandibulectomy, floor of mouth resection, neck dissection, and reconstruction in 2019 Tracheostomy in 2019 Left carotid stent in 2019 Allergies: PCN-Anaphylaxsis and Sulfa. Medications: Benadryl Allergy 1 Tablet (of 25 mg) Oral daily Clopidogrel Bisulfate 1 Tablet (of 75 mg) Oral daily Levothyroxine Sodium 1 Tablet (of 50 mcg) Oral daily Zoloft 1 (100 mg) Tablet Oral daily Family History: Ms. Posada's mother at age 75: cancer history consists of cancer. Ms. Posada's father at age 75: coronary artery disease. Father with heart disease at age 75. Mother of colon cancer at age 75. A brother had Parkinson's disease. Social History: Ms. Posada is and she is retired. Ms. Posada has never smoked. She is a non-smoker. She has just occasional alcohol use. Review Of Symptoms: <See Above> Vital Signs: Performed on Mar 21, 2021 13:47 Height - 63.00 in Temperature - 97.8 F (LOW) Pulse - 77 /min Respiration - 18 /min BP - 144/64 mm(hg) (HIGH) O2 Sat - 96 % Performed on Mar 21, 2021 12:22 Height - 63.00 in Weight - 105.8 lbs (LOW) BSA - 1.48 sq.m BMI - 18.74 Temperature - 98.1 F (LOW) Pulse - 80 /min Respiration - 18 /min BP - 127/75 mm(hg) O2 Sat - 95 % (LOW) Pain - 0 Fatigue - 3,0 - Fully active, able to carry on all predisease activities without restrictions. (ECOG) Physical Examination: Constitutional Alert, oriented, no acute distress. Skin pink, warm and dry. Head Normocephalic; atraumatic. Eyes Conjunctivae and sclerae are clear and without icterus. Pupils are reactive and equal. ENMT NO oral exudates but moderate redness noted in oral cavity-no lesions at present. Neck Left neck/jaw line noted to have mild Erythema. There are no lesions or wounds-previous wound has healed. Hematologic/Lymphatic No petechiae or purpura. No tender or palpable lymph nodes in the cervical or supraclavicular areas. Respiratory Lungs are clear to auscultation without rhonchi or wheezing. Cardiovascular Regular rate and rhythm of heart without murmurs,clicks, gallops or rubs. Abdomen Non-tender, non-distended, no masses or ascites. Good bowel sounds noted in all quads. No guarding or rebound tenderness. No pulsatile masses. Back/Spine Non-tender to palpation. Extremities No visible deformities, no cyanosis, clubbing or edema. Musculoskeletal No tenderness or swelling, normal range of motion without obvious weakness. Integumentary No rashes or lesions. Neurologic No sensory or motor deficits, normal cerebellar function, normal gait. Psychiatric Alert and oriented times three. Coherent speech. Verbalizes understanding of our discussions today. Laboratory:Test performed on Mar 21, 2021 10:40 Sodium 134 mmol/L T4, Free 1.23 ng/dL TSH 4.80 uIU/mL Potassium 4.4 mmol/L Chloride 99 mmol/L CO2 25 mmol/L Anion Gap 14.4 BUN 13 mg/dL Creatinine 0.3 mg/dL Cr Clearance (Est) 113.3100 mL/min Glucose 122 mg/dL Osmolality - Calculated 279 mOsm/kg Calcium 9.3 mg/dL Protein, Total 7.2 g/dL Albumin 3.8 g/dL Globulin 3.4 g/dL Bilirubin, Total 0.6 mg/dL ALT (SGPT) 23 U/L AST (SGOT) 32 U/L Alkaline Phosphatase 126 IU/L WBC 5.3 10 3/uL RBC 4.10 10 6/uL HGB 12.4 g/dL HCT 36.9 % MCV 90.0 fl MCH 30.2 pg MCHC 33.6 g/dL RDW 13.3 % Platelet Count 230 10 3/cmm MPV 9.7 fL Neutrophils 3.80 10 3/uL Lymphocytes 0.6 10 3/uL Monocytes 0.6 10 3/uL Eosinophils 0.3 10 3/uL Basophils 0.0 10 3/uL Neutrophil % 71.8 % Lymphocyte % 11.5 % Monocyte % 10.6 % Eosinophil % 5.1 % Basophils % 0.8 % NRBC % 0 % Impression: 1. 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 She now has biopsy proven recurrence in a left level IV cervical lymph node. 2. Hypertension. 3. Hyperlipidemia. 4. Atrial fibrillation. 5. Carotid artery stenosis requiring stenting of the left carotid artery. 6. Sarcoidosis. 7. Peripheral neuropathy. 8. History of diverticulitis. 9. History of traumatic right femoral neck fracture requiring bipolar right hip arthroplasty on 11/15/2019. 10. Anxiety/depression. Plan/Problems Addressed at this Visit: 1. 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 Due to surgery being delayed for stenting of the left carotid artery, she began neoadjuvant chemotherapy with weekly Erbitux, carboplatin, and paclitaxel. Treatment was limited to 1 cycle of carboplatin/paclitaxel. Erbitux was not administered due to a hypersensitivity reaction to the test dose. She then underwent segmental mandibulectomy, floor of mouth resection, neck dissection, tracheostomy, and pectoralis flap reconstruction on 09/01/2019. She also underwent placement of PEG tube. Pathologic staging was pT4a, pN2b, M1. Her postoperative course was complicated by delayed healing of her pectoralis wound and by a fall at home resulting in a right femoral neck fracture. She underwent bipolar arthroplasty of the right hip on 11/15/2019. She was seen for follow-up here on 12/23/2019. Due to the lymph node involvement and the metastatic involvement in the left submandibular soft tissue, she was recommended to have postoperative adjuvant radiation. Concurrent chemotherapy was not recommended due to her multiple comorbidities and marginal performance status. She completed radiation on 03/07/2020 to a total dose of 6000 cGy administered in 30 fractions. The treatment field included the oral cavity and both sides of the neck. A restaging PET/CT on 07/01/2020 showed a region of discrete increased activity in the left cervical level IV soft tissue measuring 8 mm, SUV 5.0, was felt to be suspicious for recurrence. There were no other areas of suspicious FDG uptake. Biopsy of the left cervical lymph node on 07/27/2020 confirmed moderately differentiated squamous cell carcinoma, focally necrotic. It was the opinion of her surgeon, Dr. Chacon, that she was not medically suitable for an extensive surgical resection. As such, she was recommended to proceed with a trial of immunotherapy. She then began cycle 1 of pembrolizumab on 09/14/2020. She reported some increased fatigue following that treatment, but she had no other apparent adverse effects. She then continued treatment at 3-week intervals. She has now completed 7 cycles of treatment. She continues to tolerate it well and during treatment she has had some gradual improvement in performance status. By clinical evaluation there has been no obvious disease progression. A. Proceed with cycle 10 pembrolizumab 200 mg every 3 weeks. B. Labs from today were reviewed in detail discussed with Ms. Posada and her daughter and a copy was given to them. WBC 5.3, hemoglobin 12.4, platelets 230,000, ANC is 3800. Potassium 4.4 creatinine 0.3 random glucose 122 LFTs are normal and TSH is 4.8 with a free T4 of 1.23. C. We will plan for her to return in 3 weeks for treatment with pembrolizumab only. D. She will return for follow-up in 6 weeks which time we have asked for CBC CMP TSH and free T4 for monitoring of the immunotherapy. E. Mrs. Posada was encouraged to contact us in interim should questions or problems arise. 2. 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 She will continue treatment with Salagen, 5 mg at bedtime. 3. She had chronic/persistent abscess in the left neck following her surgery/radiation, but it has now healed and she has been discharged from wound care. 4. She had mildly elevated TSH, consistent with hypothyroidism. She is on replacement therapy with levothyroxine. Her Free T4 is normal today, so I did not adjust her thyroid replacement. We will continue to monitor at her follow-up in 6 weeks. Signed By: Audelia Walker-BRENDA, AOGERALD Coley MD <<Signature on File>>
== END 2021-04-10 23:59 | disposition home or self-care (01) ==
LOC: ONCMED 05:57
PROVIDERS: PCP Family Medicine; Visit Provider Nurse Practitioner
DX: Z51.12 Encounter for antineoplastic immunotherapy (principal); C00.1 Malignant neoplasm of external lower lip; C77.0 Secondary and unspecified malignant neoplasm of lymph nodes of head, face and neck; I10 Essential (primary) hypertension; E78.5 Hyperlipidemia, unspecified; I48.20 Chronic atrial fibrillation, unspecified; I65.22 Occlusion and stenosis of left carotid artery; D86.9 Sarcoidosis, unspecified; G62.9 Polyneuropathy, unspecified; F41.9 Anxiety disorder, unspecified; F32.9 Major depressive disorder, single episode, unspecified; Z87.19 Personal history of other diseases of the digestive system; Z96.641 Presence of right artificial hip joint; Z79.899 Other long term (current) drug therapy
CPT/HCPCS: 80053; 84439; 84443; 85025; 96413; 99215; J7050; J9271

== ENCOUNTER 2021-04-11 06:35 | Outpatient (RCR) | payer MEDICARE, OTHER, SELFPAY | END 2021-04-18 11:00 | disposition home or self-care (01) | LOC: ONCMED 06:35 | PROVIDERS: PCP Family Medicine; Visit Provider Internal Medicine Medical Oncology | DX: Z51.12 Encounter for antineoplastic immunotherapy (principal); C03.1 Malignant neoplasm of lower gum; C77.0 Secondary and unspecified malignant neoplasm of lymph nodes of head, face and neck | CPT/HCPCS: 96413; J7050; J9271 ==

== ENCOUNTER 2021-04-18 11:08 | Outpatient (CLI) | payer MEDICARE, OTHER, SELFPAY ==
--- NOTE | 2021-04-18 | CT_ITS ---
WS: [id number] Exam: CT neck w con* [id number] Date/Time of Exam: 04/18/2021 11:26 AM Reason For Exam: ORAL CA DLP: All CT scans at [facility] use at least one of these dose optimization techniques: automated e xposure control; mA and/or kV adjustment per patient size (includes targeted exams where dose is matc hed to clinical indication); or iterative reconstruction. Comparison made with the most recent exam 09/08/2020. The neck is evaluated in the axial plane with sa gittal and coronal reformatted images. Intravenous contrast was administered. Again noted are extensive postoperative changes in the left neck to include the radical neck dissecti on with flap reconstruction. A prominent fluid collection is noted in this region measuring approxima tely 4 x 4 by 1.8 cm. This collection extends medially and inferiorly along the left carotid sheath. The collection extends laterally to just under the skin surface. This may be an abscess, hematoma or seroma. It shows only minimal rim enhancement. This collection abuts the anterior margin of the left sternocleidomastoid muscle. The airway is patent. 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 Partia l left mandibulectomy the parotid glands and right submandibular gland appear normal. The left subman dibular gland is not seen and likely surgically absent. 8 mm low-attenuation nodule in the right thyr oid lobe unchanged in appearance. Unremarkable left thyroid lobe. There is residual edema in the left neck with mild airway shift to the right. This is unchanged. The bilateral common carotid arteries a re patent. There is significant plaquing at the bilateral carotid bifurcations. The extracranial inte rnal carotid arteries are patent. No obvious new lymphadenopathy in the neck. Moderately advanced deg enerative changes of the cervical spine from C3 to C7. Advanced emphysematous changes noted in the vi sualized upper lung zones. Images of the skull base were unremarkable. CT/CT neck w con* [id number] IMPRESSION: 1. Status post radical left neck dissection with the flap reconstruction. 2. Prominent fluid collection noted in the region of the reconstruction that me asures 4 x 4 x 1.8 cm. This collection extends medial and inferior along the le ft carotid sheath. This may represent abscess, seroma or hematoma. This collect ion appears to extend laterally to just under the skin surface and may be drain able. 3. 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 4. No obvious new lymphadenopathy in the neck. Stable right thyroid nodule. 5. Continued mild to moderate edema in the left neck with some airway shift to the right. No airway compromise. Additional nonacute findings.
[2021-04-18] MEDS: iohexol 300 mg/mL 100 mL Btl IV (12:40)
== END 2021-04-18 11:09 | disposition home or self-care (01) ==
PROVIDERS: PCP Family Medicine; Visit Provider Internal Medicine Medical Oncology
DX: C77.0 Secondary and unspecified malignant neoplasm of lymph nodes of head, face and neck (principal); R60.0 Localized edema; I82.C12 Acute embolism and thrombosis of left internal jugular vein
CPT/HCPCS: 70491; Q9967

== ENCOUNTER 2021-04-30 12:54 | Outpatient (CLI) | payer MEDICARE, OTHER, SELFPAY ==
--- NOTE | 2021-04-30 | CT_ITS ---
WS: [email or web address] Exam: CT chest w con* [id number] Date/Time of Exam: 04/30/2021 1:03 PM Reason For Exam: MALIGNANT NEOPLASM HEAD/NECK DLP: 485.[address] scans at [facility] use at least one of these dose optimization techniques: automated e xposure control; mA and/or kV adjustment per patient size (includes targeted exams where dose is matc hed to clinical indication); or iterative reconstruction. Comparison 09/11/2020. A 2.4 x 2.9 cm mass is noted in the left neck just deep to the left sternocleidomastoid muscle. The m ass abuts the left common carotid artery and is unchanged in appearance. No suspicious pulmonary mass or nodule is noted. There are emphysematous changes and chronic interstitial changes in both lungs. No significant mediastinal or hilar lymphadenopathy. The airway is patent. The thoracic aorta is norm al in caliber. The central pulmonary arteries are clear. Coronary artery calcifications. No pleural o r pericardial effusion is seen. Stable 9 mm low-attenuation nodule in the right thyroid lobe may be a colloid cyst. Unremarkable left thyroid lobe. No destructive bone lesions or chest wall defects. Pro bable stones and/or sludge in the gallbladder. CT/CT chest w con* [id number] IMPRESSION: 1. 2.4 x 2.9 cm mass in the left neck just deep to the left sternocleidomastoid muscle. This is unchanged in appearance and has been noted on several prior im aging studies. 2. No significant lymphadenopathy in the chest. No new pulmonary mass or nodule . 3. Other nonemergent chronic findings which are stable
[2021-04-30] MEDS: iohexol 300 mg/mL 100 mL Btl IV (16:31)
== END 2021-04-30 12:55 | disposition home or self-care (01) ==
PROVIDERS: PCP Family Medicine; Visit Provider Internal Medicine Medical Oncology
DX: C03.1 Malignant neoplasm of lower gum (principal); C77.0 Secondary and unspecified malignant neoplasm of lymph nodes of head, face and neck
CPT/HCPCS: 71260; Q9967

== ENCOUNTER 2021-05-02 06:42 | Outpatient (RCR) | payer MEDICARE, OTHER, SELFPAY ==
[2021-05-02 09:46] LABS: Basophils % 0.6 %; Eosinophils # 0.3 10^3/uL (0.0-0.8); Eosinophils % 4.7 %; Hematocrit 37.2 % (37.0-47.0); Hemoglobin 12.1 g/dL (11.5-15.3); Lymphocytes # 0.5 10^3/uL (0.8-4.8); Lymphocytes % 8.5 %; Mean Corpuscular HGB Conc 32.5 g/dL (30.0-36.0); Mean Corpuscular Hemoglobin 29.2 pg (28.0-34.0); Mean Corpuscular Volume 89.9 fl (81-99); Mean Platelet Volume 9.7 fL (7.4-10.4); Monocytes # 0.5 10^3/uL (0.2-0.9); Monocytes % 7.4 %; Neutrophils # 5.01 10^3/uL (1.8-7.7); Neutrophils % 78.6 %; Nucleated Red Blood Cells % 0 %; Platelet Count 248 10^3/cmm (130-400); Red Blood Count 4.14 10^6/uL (4.1-5.3); Red Cell Distribution Width 13.3 % (12.1-15.1); White Blood Count 6.4 10^3/uL (4.0-10.0)
[2021-05-02 10:19] LABS: Alanine Aminotransferase 18 U/L (0-33); Alkaline Phosphatase 148 IU/L (35-105); Anion Gap 18.9 (5-19); Aspartate Amino Transferase 24 U/L (0-32); Blood Urea Nitrogen 12 mg/dL (8-23); Calcium 9.1 mg/dL (8.5-10.5); Carbon Dioxide 23 mmol/L (22-29); Chloride 100 mmol/L (98-107); Free T4 Free Thyroxine 1.22 ng/dL (0.82-1.77); Globulin 3.6 g/dL (1.3-4.6); Glucose 136 mg/dL (65-115); Osmolality Calculated 288 mOsm/kg (285-295); Potassium 3.9 mmol/L (3.5-5.1); Sodium 138 mmol/L (136-145); Thyroid Stimulating Hormone 6.17 uIU/mL (0.27-4.20); Total Bilirubin 0.6 mg/dL (0.15-1.2); Total Protein 7.6 g/dL (6.6-8.7)
--- NOTE | 2021-05-02 18:57 | ONC FU_ITS ---
Dr. Coley Patient Follow-Up Note Patient: Lian Posada Unit #: [id number]: 1940 Dicatated By: Joao Coley M.D.Date of Visit:May 02, 2021 Onc Med Follow-up/Prog Note Chief Complaint: Gingival cancer. 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 She had previously been treated here for sarcoidosis. She had then presented with pain in the left mandible following a dental extraction in January 2019. It had continued to worsen despite several rounds of antibiotic therapy. By June 2019 she had developed a mass on the left side of the neck. She was seen by Dr. Tobias, and she was noted to have a lesion involving the left lower gingiva. CT of the neck showed a heterogeneously enhancing mass with central necrosis involving the left submandibular space with mass-effect in the anterior aspect of the submandibular gland. Atherosclerotic changes were noted in the carotid bulb bilaterally. FNA biopsy of the gingival lesion showed keratosis with moderate atypia and foci suspicious for well-differentiated invasive squamous cell carcinoma. FNA biopsy of the left neck mass showed necroinflammatory changes with rare cells suspicious for metastatic carcinoma. She was then seen for further management by Dr. Sherry Chacon in [place], [place], and she was recommended to undergo definitive surgery. However, her further evaluation with CT angiogram of the neck on 07/14/2019 showed severe stenosis involving the left internal carotid artery, estimated at 80%. Staging PET/CT on 07/23/2019 showed intense uptake at the left floor of the mouth with the osseous involvement of the mandible. There was left submandibular adenopathy with extracapsular extension into the submandibular gland. There was borderline upper abdominal adenopathy without FDG uptake, presumed to be reactive. There was no evidence of distant metastatic disease. She then underwent stenting of the left carotid artery, causing a delay in her definitive surgery. As such, it was opted to give her neoadjuvant chemotherapy with weekly carboplatin and paclitaxel in combination with Erbitux. She was not able to complete the Erbitux because of a hypersensitivity reaction to the test dose, but she did complete 1 cycle of treatment with carboplatin/paclitaxel on 08/12/2019. On 09/01/2019 she underwent segmental mandibulectomy, floor of mouth resection, neck dissection, tracheostomy, and pectoralis flap reconstruction. She also had a PEG tube placed. She tolerated the surgery well. Pathology showed grade 2 squamous cell carcinoma involving the left lower gingiva. The tumor measured 2.5 cm with a 3 mm depth of invasion. There was superficial direct invasion through the cortex of the mandible. There was evidence of cystic metastatic squamous cell carcinoma involving submandibular soft tissue measuring 4.5 cm, presumed to be extranodal. The closest surgical margin was 3 mm. There was involvement in 3/12 lymph nodes, the largest measuring 0.5 cm. Extranodal extension was not identified. Pathologic staging was pT4a, pN2b, M1. Her postoperative course was complicated by delayed healing of her pectoralis wound and by a fall at home resulting in a right femoral neck fracture. She underwent bipolar arthroplasty of the right hip on 11/15/2019. At discharge she initially went to [facility] for further rehabilitation, but she was then able to return to her own home. She was seen for follow-up here on 12/23/2019. Due to the lymph node involvement and the metastatic involvement in the left submandibular soft tissue, she was recommended to have postoperative adjuvant radiation. I recommended against concurrent chemotherapy due to her multiple comorbidities and marginal performance status. She completed radiation on 03/07/2020 to a total dose of 6000 cGy administered in 30 fractions. The treatment field included the oral cavity and both sides of the neck. A restaging PET/CT on 07/01/2020 showed activity in the left mandibular resection bed consistent with postsurgical inflammation. There also appeared to be inflammatory activity at the left hyoid. A region of discrete increased activity in the left cervical level IV soft tissue measuring 8 mm, SUV 5.0, was felt to be suspicious for recurrence. Also noted on that study were bilateral interstitial lung infiltrates or fibrosis. There were no other areas of significant FDG uptake. She had surgical oncology follow-up with [facility] on 07/21/2020. She underwent biopsy of the left cervical lymph node on 07/27/2020. Pathology showed moderately differentiated squamous cell carcinoma, focally necrotic. After further discussion with Dr. Chacon, it was recommended that she return here for consideration of systemic therapy, as it was felt that she was not medically suitable for an extensive surgical resection. Her restaging neck CT on 09/08/2020 showed extensive prior postoperative changes of left partial mandibulectomy/flap reconstruction/radical neck dissection. A new peripheral enhancing fluid collection consistent with abscess was noted within the superficial flap and 2 smaller peripheral enhancing low-attenuation collections were noted in the lower left neck and along the right hyoid bone. There was significant edema in the left neck soft tissues. Chest CT on 09/11/2020 showed chronic emphysema with pulmonary fibrosis and chronic interstitial lung disease. There were no metastatic lesions identified. Small nodes in the mediastinum at the celiac axis appeared stable. With those findings, she was recommended to begin a trial of immunotherapy with pembrolizumab. Her other medical illnesses, in addition to the sarcoidosis, include hypertension, hyperlipidemia, atrial fibrillation and peripheral neuropathy. She has a history of diverticulitis, and she also has a history of anxiety/depression. She is a non-smoker. INTERIM HISTORY: She began cycle 1 of pembrolizumab on 09/14/2020. She tolerated the initial infusion without any adverse effects. She then continued treatment at 3-week intervals. During follow-up she was found to have hypothyroidism, for which she began on thyroid replacement therapy. She otherwise tolerated the treatment with no adverse effects. As of 04/11/2021 she received her 11th cycle of treatment with pembrolizumab. Following that treatment, she had developed some increased swelling on the left side of her neck. A repeat neck CT on 04/18/2021 showed a prominent fluid collection in the left neck measuring 4 x 4 x 1.8 cm. The collection was noted to extend medially and inferiorly along the left carotid sheath and it was noted to extend laterally to just under the skin surface. There was no obvious new lymphadenopathy or other evidence of disease progression. She subsequently had spontaneous drainage of a least a couple or more of fluid. A scheduled restaging chest CT on 04/30/2021 reported a 2.4 x 2.9 cm mass in the left neck just deep to the left sternocleidomastoid muscle, unchanged in appearance from previous studies. There was no significant lymphadenopathy in the chest and there was no suspicious pulmonary mass or nodule identified. She is seen for a follow-up visit. She has been feeling pretty good generally. She does have some fatigue, but she is able to do light work. ECOG score is 1. She continues to have limited oral intake due to her difficulties with chewing and swallowing. She is supplementing with Ensure, and her weight is stable. She does not have fever or night sweats. She tends to get a little bit of phlegm buildup in her throat. She does not complain of cough, and she has not been having shortness of breath or chest pain. She has no GI or complaints. She has no significant joint or bone pain. She does not complain of headache. She sometimes has dizziness. She has some residual neuropathy from the sarcoidosis, mainly in her left foot. Medications: Benadryl Allergy 1 Tablet (of 25 mg) Oral daily, Clopidogrel Bisulfate 1 Tablet (of 75 mg) Oral daily, Levothyroxine Sodium 1 Tablet (of 50 mcg) Oral daily, Tylenol Extra Strength Tablet Oral PRN, Zoloft 1 (100 mg) Tablet Oral daily Allergies: PCN-Anaphylaxsis and Sulfa. Vital Signs: Performed on May 02, 2021 10:43 Height - 63.00 in Weight - 107.4 lbs (HIGH) BSA - 1.48 sq.m BMI - 19.03 Temperature - 97.1 F (LOW) Pulse - 92 /min Respiration - 18 /min BP - 128/76 mm(hg) O2 Sat - 96 % Pain - 0 Fatigue - 2 Physical Examination: Constitutional - She looks pretty good generally, Eyes - Sclerae nonicteric. Conjunctivae clear, ENMT - Mouth is dry. There are no lesions noted in the oral cavity, Neck - There is induration on both sides of the neck, more prominently on the left. The soft tissue also is more prominent on the left side, though I am not able to palpate a discrete mass, Hematologic/Lymphatic - No cervical, clavicular, or axillary adenopathy noted, Respiratory - Lungs are clear with good air movement bilaterally, Cardiovascular - Heart rhythm is regular. There is no murmur, gallop, or rub noted, Chest - The wound at the donor site in the medial left chest appears completely healed. There is some residual scarring at that site, Abdomen - Soft. Liver and spleen are not enlarged. There is no abdominal mass or ascites noted and there is no inguinal adenopathy, Extremities - No edema, Integumentary - The left cheek wound has completely healed, Neurologic - No focal neurologic deficits noted. Lab/Imaging: Test performed on May 02, 2021 09:33 Sodium 138 mmol/L T4, Free 1.22 ng/dL TSH 6.17 uIU/mL Potassium 3.9 mmol/L Chloride 100 mmol/L CO2 23 mmol/L Anion Gap 18.9 BUN 12 mg/dL Creatinine 0.5 mg/dL Cr Clearance (Est) 69.02 mL/min Glucose 136 mg/dL Osmolality - Calculated 288 mOsm/kg Calcium 9.1 mg/dL Protein, Total 7.6 g/dL Albumin 4.0 g/dL Globulin 3.6 g/dL Bilirubin, Total 0.6 mg/dL ALT (SGPT) 18 U/L AST (SGOT) 24 U/L Alkaline Phosphatase 148 IU/L WBC 6.4 10 3/uL RBC 4.14 10 6/uL HGB 12.1 g/dL HCT 37.2 % MCV 89.9 fl MCH 29.2 pg MCHC 32.5 g/dL RDW 13.3 % Platelet Count 248 10 3/cmm MPV 9.7 fL Neutrophils 5.01 10 3/uL Lymphocytes 0.5 10 3/uL Monocytes 0.5 10 3/uL Eosinophils 0.3 10 3/uL Basophils 0.0 10 3/uL Neutrophil % 78.6 % Lymphocyte % 8.5 % Monocyte % 7.4 % Eosinophil % 4.7 % Basophils % 0.6 % NRBC % 0 % Problem List: 1. 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 She now has biopsy proven recurrence in a left level IV cervical lymph node. 2. Hypertension. 3. Hyperlipidemia. 4. Atrial fibrillation. 5. Carotid artery stenosis requiring stenting of the left carotid artery. 6. Sarcoidosis. 7. Peripheral neuropathy. 8. History of diverticulitis. 9. History of traumatic right femoral neck fracture requiring bipolar right hip arthroplasty on 11/15/2019. 10. Anxiety/depression. Problems Addressed with this Encounter and Plan: 1. 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 Due to surgery being delayed for stenting of the left carotid artery, she began neoadjuvant chemotherapy with weekly Erbitux, carboplatin, and paclitaxel. Treatment was limited to 1 cycle of carboplatin/paclitaxel. Erbitux was not administered due to a hypersensitivity reaction to the test dose. She then underwent segmental mandibulectomy, floor of mouth resection, neck dissection, tracheostomy, and pectoralis flap reconstruction on 09/01/2019. She also underwent placement of PEG tube. Pathologic staging was pT4a, pN2b, M1. Her postoperative course was complicated by delayed healing of her pectoralis wound and by a fall at home resulting in a right femoral neck fracture. She underwent bipolar arthroplasty of the right hip on 11/15/2019. She was seen for follow-up here on 12/23/2019. Due to the lymph node involvement and the metastatic involvement in the left submandibular soft tissue, she was recommended to have postoperative adjuvant radiation. Concurrent chemotherapy was not recommended due to her multiple comorbidities and marginal performance status. She completed radiation on 03/07/2020 to a total dose of 6000 cGy administered in 30 fractions. The treatment field included the oral cavity and both sides of the neck. A restaging PET/CT on 07/01/2020 showed a region of discrete increased activity in the left cervical level IV soft tissue measuring 8 mm, SUV 5.0, was felt to be suspicious for recurrence. There were no other areas of suspicious FDG uptake. Biopsy of the left cervical lymph node on 07/27/2020 confirmed moderately differentiated squamous cell carcinoma, focally necrotic. It was the opinion of her surgeon, Dr. Chacon, that she was not medically suitable for an extensive surgical resection. As such, she was recommended to proceed with a trial of immunotherapy. She then began cycle 1 of pembrolizumab on 09/14/2020. She reported some increased fatigue following that treatment, but she had no other apparent adverse effects. She then continued treatment at 3-week intervals. She has now completed 11 cycles. Overall, she has tolerated it well. During follow-up she has had issues with recurrent fluid collection in the left side of the neck, and she recently had another spontaneous drainage of fluid. However, thus far there has been no evidence of progression of the underlying malignancy. She will proceed now with cycle 12 of pembrolizumab at 200 mg by IV infusion. She returns for treatment in 3 weeks and for a follow-up visit in 6 weeks. 2. She was found to have a mildly elevated TSH, consistent with hypothyroidism. She begam on replacement therapy with levothyroxine. Her TSH is now mildly elevated again. Her levothyroxine dosage will be increased to 75 mcg daily. Signed By: Joao Coley M.D. <<Signature on File>>
== END 2021-05-11 23:59 | disposition home or self-care (01) ==
LOC: ONCMED 06:42
PROVIDERS: PCP Family Medicine; Visit Provider Internal Medicine Medical Oncology
DX: Z51.12 Encounter for antineoplastic immunotherapy (principal); C03.1 Malignant neoplasm of lower gum; C77.0 Secondary and unspecified malignant neoplasm of lymph nodes of head, face and neck; I10 Essential (primary) hypertension; E78.5 Hyperlipidemia, unspecified; I48.91 Unspecified atrial fibrillation; I65.22 Occlusion and stenosis of left carotid artery; D86.9 Sarcoidosis, unspecified; G62.9 Polyneuropathy, unspecified; F41.9 Anxiety disorder, unspecified; F32.9 Major depressive disorder, single episode, unspecified; E03.9 Hypothyroidism, unspecified; Z87.19 Personal history of other diseases of the digestive system; Z96.641 Presence of right artificial hip joint; Z79.899 Other long term (current) drug therapy; Z92.3 Personal history of irradiation
CPT/HCPCS: 80053; 84439; 84443; 85025; 96413; 99215; J7050; J9271

== ENCOUNTER → 2021-06-06 00:01 | Outpatient (BNVA) | payer MEDICARE, OTHER, SELFPAY | PROVIDERS: PCP Family Medicine; Visit Provider Dermatology | DX: R21 Rash and other nonspecific skin eruption (principal) | CPT/HCPCS: 87070 ==

== ENCOUNTER 2021-07-11 09:29 | Outpatient (CLI) | payer MEDICARE, OTHER, SELFPAY ==
[2021-07-11 10:14] LABS: Basophils # 0.1 10^3/uL (0.0-0.1); Basophils % 0.3 %; Eosinophils # 0.1 10^3/uL (0.0-0.8); Eosinophils % 0.7 %; Hematocrit 39.1 % (37.0-47.0); Hemoglobin 12.7 g/dL (11.5-15.3); Lymphocytes # 1.4 10^3/uL (0.8-4.8); Mean Corpuscular HGB Conc 32.5 g/dL (30.0-36.0); Mean Corpuscular Hemoglobin 29.7 pg (28.0-34.0); Mean Corpuscular Volume 91.6 fl (81-99); Mean Platelet Volume 8.7 fL (7.4-10.4); Neutrophils # 17.19 10^3/uL (1.8-7.7); Neutrophils % 86.5 %; Nucleated Red Blood Cells % 0 %; Platelet Count 346 10^3/cmm (130-400); Red Blood Count 4.27 10^6/uL (4.1-5.3); Red Cell Distribution Width 14.3 % (12.1-15.1); White Blood Count 19.9 10^3/uL (4.0-10.0)
[2021-07-11 10:48] LABS: Alanine Aminotransferase 14 U/L (0-33); Alkaline Phosphatase 120 IU/L (35-105); Anion Gap 16.4 (5-19); Aspartate Amino Transferase 18 U/L (0-32); Blood Urea Nitrogen 14 mg/dL (8-23); Calcium 9.4 mg/dL (8.5-10.5); Carbon Dioxide 24 mmol/L (22-29); Chloride 97 mmol/L (98-107); Glucose 134 mg/dL (65-115); Osmolality Calculated 280 mOsm/kg (285-295); Potassium 3.4 mmol/L (3.5-5.1); Sodium 134 mmol/L (136-145); Thyroid Stimulating Hormone 2.81 uIU/mL (0.27-4.20); Total Bilirubin 0.4 mg/dL (0.15-1.2)
--- NOTE | 2021-07-13 19:33 | ONC FU_ITS ---
Dr. Coley Patient Follow-Up Note Patient: Lian Posada Unit #: [id number]: 1940 Dicatated By: Joao Coley M.D.Date of Visit:Jul 11, 2021 Onc Med Follow-up/Prog Note Chief Complaint: Gingival cancer. 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 She had previously been treated here for sarcoidosis. She had then presented with pain in the left mandible following a dental extraction in January 2019. It had continued to worsen despite several rounds of antibiotic therapy. By June 2019 she had developed a mass on the left side of the neck. She was seen by Dr. Tobias, and she was noted to have a lesion involving the left lower gingiva. CT of the neck showed a heterogeneously enhancing mass with central necrosis involving the left submandibular space with mass-effect in the anterior aspect of the submandibular gland. Atherosclerotic changes were noted in the carotid bulb bilaterally. FNA biopsy of the gingival lesion showed keratosis with moderate atypia and foci suspicious for well-differentiated invasive squamous cell carcinoma. FNA biopsy of the left neck mass showed necroinflammatory changes with rare cells suspicious for metastatic carcinoma. She was then seen for further management by Dr. Sherry Chacon in [place], [place], and she was recommended to undergo definitive surgery. However, her further evaluation with CT angiogram of the neck on 07/14/2019 showed severe stenosis involving the left internal carotid artery, estimated at 80%. Staging PET/CT on 07/23/2019 showed intense uptake at the left floor of the mouth with the osseous involvement of the mandible. There was left submandibular adenopathy with extracapsular extension into the submandibular gland. There was borderline upper abdominal adenopathy without FDG uptake, presumed to be reactive. There was no evidence of distant metastatic disease. She then underwent stenting of the left carotid artery, causing a delay in her definitive surgery. As such, it was opted to give her neoadjuvant chemotherapy with weekly carboplatin and paclitaxel in combination with Erbitux. She was not able to complete the Erbitux because of a hypersensitivity reaction to the test dose, but she did complete 1 cycle of treatment with carboplatin/paclitaxel on 08/12/2019. On 09/01/2019 she underwent segmental mandibulectomy, floor of mouth resection, neck dissection, tracheostomy, and pectoralis flap reconstruction. She also had a PEG tube placed. She tolerated the surgery well. Pathology showed grade 2 squamous cell carcinoma involving the left lower gingiva. The tumor measured 2.5 cm with a 3 mm depth of invasion. There was superficial direct invasion through the cortex of the mandible. There was evidence of cystic metastatic squamous cell carcinoma involving submandibular soft tissue measuring 4.5 cm, presumed to be extranodal. The closest surgical margin was 3 mm. There was involvement in 3/12 lymph nodes, the largest measuring 0.5 cm. Extranodal extension was not identified. Pathologic staging was pT4a, pN2b, M1. Her postoperative course was complicated by delayed healing of her pectoralis wound and by a fall at home resulting in a right femoral neck fracture. She underwent bipolar arthroplasty of the right hip on 11/15/2019. At discharge she initially went to [facility] for further rehabilitation, but she was then able to return to her own home. She was seen for follow-up here on 12/23/2019. Due to the lymph node involvement and the metastatic involvement in the left submandibular soft tissue, she was recommended to have postoperative adjuvant radiation. I recommended against concurrent chemotherapy due to her multiple comorbidities and marginal performance status. She completed radiation on 03/07/2020 to a total dose of 6000 cGy administered in 30 fractions. The treatment field included the oral cavity and both sides of the neck. A restaging PET/CT on 07/01/2020 showed activity in the left mandibular resection bed consistent with postsurgical inflammation. There also appeared to be inflammatory activity at the left hyoid. A region of discrete increased activity in the left cervical level IV soft tissue measuring 8 mm, SUV 5.0, was felt to be suspicious for recurrence. Also noted on that study were bilateral interstitial lung infiltrates or fibrosis. There were no other areas of significant FDG uptake. She had surgical oncology follow-up with [facility] on 07/21/2020. She underwent biopsy of the left cervical lymph node on 07/27/2020. Pathology showed moderately differentiated squamous cell carcinoma, focally necrotic. After further discussion with Dr. Chacon, it was recommended that she return here for consideration of systemic therapy, as it was felt that she was not medically suitable for an extensive surgical resection. Her restaging neck CT on 09/08/2020 showed extensive prior postoperative changes of left partial mandibulectomy/flap reconstruction/radical neck dissection. A new peripheral enhancing fluid collection consistent with abscess was noted within the superficial flap and 2 smaller peripheral enhancing low-attenuation collections were noted in the lower left neck and along the right hyoid bone. There was significant edema in the left neck soft tissues. Chest CT on 09/11/2020 showed chronic emphysema with pulmonary fibrosis and chronic interstitial lung disease. There were no metastatic lesions identified. Small nodes in the mediastinum at the celiac axis appeared stable. With those findings, she was recommended to begin a trial of immunotherapy with pembrolizumab. Her other medical illnesses, in addition to the sarcoidosis, include hypertension, hyperlipidemia, atrial fibrillation and peripheral neuropathy. She has a history of diverticulitis, and she also has a history of anxiety/depression. She is a non-smoker. INTERIM HISTORY: She began cycle 1 of pembrolizumab on 09/14/2020. She tolerated the initial infusion without any adverse effects. She then continued treatment at 3-week intervals. During follow-up she was found to have hypothyroidism, for which she began on thyroid replacement therapy. She otherwise tolerated the treatment with no adverse effects. As of 04/11/2021 she received her 11th cycle of treatment with pembrolizumab. Following that treatment, she had developed some increased swelling on the left side of her neck. A repeat neck CT on 04/18/2021 showed a prominent fluid collection in the left neck measuring 4 x 4 x 1.8 cm. The collection was noted to extend medially and inferiorly along the left carotid sheath and it was noted to extend laterally to just under the skin surface. There was no obvious new lymphadenopathy or other evidence of disease progression. She subsequently had spontaneous drainage of a least a couple or more of fluid. A scheduled restaging chest CT on 04/30/2021 reported a 2.4 x 2.9 cm mass in the left neck just deep to the left sternocleidomastoid muscle, unchanged in appearance from previous studies. There was no significant lymphadenopathy in the chest and there was no suspicious pulmonary mass or nodule identified. As of her follow-up visit on 07/03/2020 she appeared stable clinically, and she continued treatment with pembrolizumab. She returned in May for a scheduled treatment, and at that point the pembrolizumab was put on hold, as she had developed a new skin eruption which was suspicious for bullous pemphigoid. She did begin on steroid therapy with prednisone, and she was referred to Dr. Willard for further management. She is seen for a follow-up visit. Management of her bullous pemphigoid has been somewhat problematic, as she has had a very poor tolerance for steroid therapy. She had seen Dr. Willard earlier this week, and the pemphigoid eruption had worsened significantly with tapering of her prednisone. She has now restarted another steroid taper. She unfortunately has experienced significant cognitive dysfunction and she has been prone to falling. Her activity is limited, she is requiring more assistance. Her ECOG score is 2. She has not been eating well. She has had a little sweating at times, but no fever. She does complain that she is itching a lot. She has soreness in her mouth and throat, and she is also having dental issues now. She does not complain of cough, and she has not been having shortness of breath or chest pain. She has no GI or complaints. She recently developed pretty significant pain in her neck. She is not having headache, and she has no focal neurologic symptoms. Medications: Benadryl Allergy 1 Tablet (of 25 mg) Oral at bedtime, Clopidogrel Bisulfate 1 Tablet (of 75 mg) Oral daily, Doxycycline Hyclate 1 Capsule (of 100 mg) Oral b.i.d., Keytruda Intravenous, Levothyroxine Sodium 1 Tablet (of 75 mcg) Oral daily, Mupirocin (2 %) Ointment Topical Take as Directed, PredniSONE 1 (10 mg) Tablet Oral t.i.d., traZODone HCl 1 Tablet (of 50 mg) Oral daily, Triamcinolone Acetonide (0.1 %) Ointment Topical Take as Directed, Tylenol Extra Strength Tablet Oral PRN, Zoloft 1 (100 mg) Tablet Oral daily Allergies: PCN-Anaphylaxsis and Sulfa. Vital Signs: Performed on Jul 11, 2021 12:08 Height - 63.00 in Weight - 100.8 lbs (LOW) BSA - 1.45 sq.m BMI - 17.86 (LOW) Temperature - 98.5 F Pulse - 97 /min Respiration - 18 /min BP - 147/70 mm(hg) (HIGH) O2 Sat - 96 % Pain - 8 Fatigue - 9 Physical Examination: Constitutional - She appears generally weak, Eyes - Sclerae nonicteric. Conjunctivae clear, ENMT - Mouth is very dry. Her lower teeth are in poor repair. There are no mucosal lesions noted, Neck - There is induration on both sides of the neck, more prominently on the left. The soft tissue also is more prominent on the left side. There is no discrete mass palpable. At this point there is no open wound visible, Hematologic/Lymphatic - No cervical, clavicular, or axillary adenopathy noted, Respiratory - Lungs are clear with good air movement bilaterally, Cardiovascular - Heart rhythm is regular. There is no murmur, gallop, or rub noted, Abdomen - Soft. Liver and spleen are not enlarged. There is no abdominal mass or ascites noted and there is no inguinal adenopathy, Extremities - No edema. There is a large area of ecchymosis involving virtually the entire left leg below the knee, Integumentary - There are widespread skin lesions which appear consistent with bullous pemphigoid, Neurologic - No focal neurologic deficits noted. Lab/Imaging: Test performed on Jul 11, 2021 09:50 Sodium 134 mmol/L TSH 2.81 uIU/mL Potassium 3.4 mmol/L Chloride 97 mmol/L CO2 24 mmol/L Anion Gap 16.4 BUN 14 mg/dL Creatinine 0.5 mg/dL Cr Clearance (Est) 64.77 mL/min Glucose 134 mg/dL Osmolality - Calculated 280 mOsm/kg Calcium 9.4 mg/dL Protein, Total 7.0 g/dL Albumin 4.0 g/dL Globulin 3.0 g/dL Bilirubin, Total 0.4 mg/dL ALT (SGPT) 14 U/L AST (SGOT) 18 U/L Alkaline Phosphatase 120 IU/L WBC 19.9 10 3/uL RBC 4.27 10 6/uL HGB 12.7 g/dL HCT 39.1 % MCV 91.6 fl MCH 29.7 pg MCHC 32.5 g/dL RDW 14.3 % Platelet Count 346 10 3/cmm MPV 8.7 fL Neutrophils 17.19 10 3/uL Lymphocytes 1.4 10 3/uL Monocytes 1.0 10 3/uL Eosinophils 0.1 10 3/uL Basophils 0.1 10 3/uL Neutrophil % 86.5 % Lymphocyte % 7.0 % Monocyte % 5.0 % Eosinophil % 0.7 % Basophils % 0.3 % NRBC % 0 % Problem List: 1. 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 She now has biopsy proven recurrence in a left level IV cervical lymph node. 2. Hypertension. 3. Hyperlipidemia. 4. Atrial fibrillation. 5. Carotid artery stenosis requiring stenting of the left carotid artery. 6. Sarcoidosis. 7. Peripheral neuropathy. 8. History of diverticulitis. 9. History of traumatic right femoral neck fracture requiring bipolar right hip arthroplasty on 11/15/2019. 10. Anxiety/depression. Problems Addressed with this Encounter and Plan: 1. 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 Due to surgery being delayed for stenting of the left carotid artery, she began neoadjuvant chemotherapy with weekly Erbitux, carboplatin, and paclitaxel. Treatment was limited to 1 cycle of carboplatin/paclitaxel. Erbitux was not administered due to a hypersensitivity reaction to the test dose. She then underwent segmental mandibulectomy, floor of mouth resection, neck dissection, tracheostomy, and pectoralis flap reconstruction on 09/01/2019. She also underwent placement of PEG tube. Pathologic staging was pT4a, pN2b, M1. Her postoperative course was complicated by delayed healing of her pectoralis wound and by a fall at home resulting in a right femoral neck fracture. She underwent bipolar arthroplasty of the right hip on 11/15/2019. She was seen for follow-up here on 12/23/2019. Due to the lymph node involvement and the metastatic involvement in the left submandibular soft tissue, she was recommended to have postoperative adjuvant radiation. Concurrent chemotherapy was not recommended due to her multiple comorbidities and marginal performance status. She completed radiation on 03/07/2020 to a total dose of 6000 cGy administered in 30 fractions. The treatment field included the oral cavity and both sides of the neck. A restaging PET/CT on 07/01/2020 showed a region of discrete increased activity in the left cervical level IV soft tissue measuring 8 mm, SUV 5.0, was felt to be suspicious for recurrence. There were no other areas of suspicious FDG uptake. Biopsy of the left cervical lymph node on 07/27/2020 confirmed moderately differentiated squamous cell carcinoma, focally necrotic. It was the opinion of her surgeon, Dr. Chacon, that she was not medically suitable for an extensive surgical resection. As such, she was recommended to proceed with a trial of immunotherapy. She then began cycle 1 of pembrolizumab on 09/14/2020. She reported some increased fatigue following that treatment, but she had no other apparent adverse effects. She then continued treatment at 3-week intervals. She has now completed 11 cycles. Overall, she has tolerated it well. During follow-up she has had issues with recurrent fluid collection in the left side of the neck, and she recently has had episodes of spontaneous fluid drainage. As of her follow-up visit on 05/02/2021 there has been no documented recurrence/progression of the malignancy, and she continued treatment with pembrolizumab. In May 2021 she presented with new onset of a skin eruption, appearance of which was consistent with bullous pemphigoid. Her treatment was put on hold, and she began on steroid therapy. She initially did show some improvement on the prednisone, but her further management has been problematic due to very poor tolerance for the steroid. She has recently restarted the prednisone at 30 mg daily, but on a tapering schedule. The pembrolizumab will remain on hold, as I strongly suspect that it is the underlying cause. I will have her start trazodone 50 mg at bedtime. I will tentatively plan a follow-up visit in 1 month. 2. She has recent onset of new pain in the neck area. She will be scheduled for CT scans of the cervical spine and of the neck soft tissue. She will have further evaluation as indicated. Signed By: Joao Coley M.D. <<Signature on File>>
== END 2021-07-11 09:30 | disposition home or self-care (01) ==
PROVIDERS: PCP Family Medicine; Visit Provider Internal Medicine Medical Oncology
DX: C03.1 Malignant neoplasm of lower gum (principal); I10 Essential (primary) hypertension; E78.5 Hyperlipidemia, unspecified; I48.91 Unspecified atrial fibrillation; I65.22 Occlusion and stenosis of left carotid artery; G62.9 Polyneuropathy, unspecified; F41.9 Anxiety disorder, unspecified; F32.A Depression, unspecified; Z79.899 Other long term (current) drug therapy
CPT/HCPCS: 36415; 80053; 84443; 85025; 99214

== ENCOUNTER 2021-07-26 11:28 | Outpatient (CLI) | payer MEDICARE, OTHER, SELFPAY ==
--- NOTE | 2021-07-26 12:50 | CT_ITS ---
WS: [id number] CT neck w con* [id number] REASON FOR EXAM: HEAD , NECK CANCER RESTAGING IV CONTRAST ADMINISTERED: 95 mL of Omnipaque 300. TOTAL EXAM DLP: 169.[address] scans at [facility] use at least one of these dose optimization techniques: automat ed exposure control; mA and/or kV adjustment per patient size (includes targeted exams where dose is matched to clinical indication); or iterative reconstruction. FINDINGS: In comparison to the previous examination there has been significant increase in the volume of enhanc ing viable tumor which still shows significant central necrosis. The lesion has extended medially (ex tending to the left lobe of the thyroid and encasing the left internal carotid artery) and anteriorly and laterally (into the subcutaneous fat) as well as inferiorly (left retroclavicular space) and sup eriorly (mid C4 level). Posteriorly is near the anterior margin of the left first rib. On the coronal reconstructions the maximum diameters of the mass are 5.36 x 3.91 cm. On the sagittal reconstructions a maximum diameter dimensions of the lesion are 4.97 x 4.22 cm. Maximum dimensions on the axial images are 5.[address]/CT neck w con* [id number] IMPRESSION: Progression of malignant mass in the left neck as above.
[2021-07-26] MEDS: iohexol 300 mg/mL 100 mL Btl IV (13:04)
== END 2021-07-26 11:29 | disposition home or self-care (01) ==
PROVIDERS: PCP Family Medicine; Visit Provider Internal Medicine Medical Oncology
DX: C03.1 Malignant neoplasm of lower gum (principal); C77.0 Secondary and unspecified malignant neoplasm of lymph nodes of head, face and neck
CPT/HCPCS: 70491

== ENCOUNTER 2021-07-31 11:21 | Outpatient (CLI) | payer MEDICARE, OTHER, SELFPAY ==
--- NOTE | 2021-07-31 11:29 | CT_ITS ---
WS: [id number] CT CERVICAL spine without contrast. HISTORY: RESTAGING EVALUATION HEAD/NECK CANCER Technique: Axial imaging through the cervical spine with sagittal and coronal reformats. All CT scans at [facility] use at least one of these dose optimization techniques: automated exposure cont rol; mA and/or kV adjustment per patient size (includes targeted exams where dose is matched to clini dee dee indication); or iterative reconstruction. DLP: 204.77 mGy.cm COMPARISON: No similar examination. Soft tissue neck CT was also performed on 07/26/2021. Contrast: Omnipaque 300, 95 mL IV. This examination was ordered as a cervical spine CT to evaluate the osseous structures. A soft tissue neck CT was performed on 07/26/2021. Patient has a known large LEFT neck mass that was described in d etail on 07/26/2021. Straightening and reversal of the normal cervical lordosis. C3, C4 and C7 anterolisthesis. Very minim al anterolisthesis of C5. Severe degenerative disc space narrowing and facet joint arthritis. No acut e fracture. There is slight anterior wedging of T1. Craniocervical junction is normal. Lateral masses are aligned odontoid is intact. C1-C2: Normal. C2-C3: Very shallow LEFT paracentral disc protrusion. Bilateral facet joint arthritis. C3-C4: Osteophytic ridging with mild bilateral foraminal narrowing. C4-C5: Anterolisthesis, osteophytic ridging and facet joint arthritis contributing to moderate to sev ere bilateral foraminal stenosis. C5-C6: Diffuse osteophytic ridging around the vertebral bodies. Severe LEFT and mild RIGHT foraminal stenosis. C6-C7: Diffuse osteophytic ridging with moderate bilateral foraminal stenosis. C7-T1: Mild LEFT foraminal stenosis. Small caliber RIGHT vertebral artery is absent distally. RIGHT vertebral artery is small caliber thro ughout its course and intermittently visualized due to breathing motion artifact. LEFT vertebral vesna ry is intact. Patient has a LEFT cervical carotid artery stent which is patent but being displaced by the large mass in the LEFT neck. This mass was recently described. There is partial encasement of th e LEFT common carotid artery by this mass. Lung apices are clear. 8 mm nodule in the inferior RIGHT t hyroid. CT/CT cervical spine w con [id number] IMPRESSION: 1. Multilevel areas of stenosis and disc space narrowing and anterolisthesis o f the vertebral bodies throughout the cervical spine. 2. Moderate to severe bilateral foraminal stenosis at C4-5. 3. Severe LEFT and mild RIGHT foraminal stenosis at C5-6. 4. C6-7 moderate foraminal stenosis. 5. Patient has a known large necrotic soft tissue mass in the LEFT neck which was recently described on a neck CT in detail. Today's examination was ordered as a cervical spine CT. 6. LEFT cervical carotid artery stent is patent.
== END 2021-07-31 11:22 | disposition home or self-care (01) ==
LOC: RAD 11:24
PROVIDERS: PCP Family Medicine; Visit Provider Internal Medicine Medical Oncology
DX: M54.2 Cervicalgia (principal); C03.1 Malignant neoplasm of lower gum; C77.0 Secondary and unspecified malignant neoplasm of lymph nodes of head, face and neck; M48.02 Spinal stenosis, cervical region
CPT/HCPCS: 72126

== ENCOUNTER 2021-08-13 08:59 | Outpatient (CLI) | payer MEDICARE, OTHER, SELFPAY ==
--- NOTE | 2021-08-16 10:24 | ONC FU_ITS ---
Dr. Coley Patient Follow-Up Note Patient: Lian Posada Unit #: [id number]: 1940 Dicatated By: Joao Coley M.D.Date of Visit:Aug 13, 2021 Onc Med Follow-up/Prog Note Chief Complaint: Gingival cancer. 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 She had previously been treated here for sarcoidosis. She had then presented with pain in the left mandible following a dental extraction in January 2019. It had continued to worsen despite several rounds of antibiotic therapy. By June 2019 she had developed a mass on the left side of the neck. She was seen by Dr. Tobias, and she was noted to have a lesion involving the left lower gingiva. CT of the neck showed a heterogeneously enhancing mass with central necrosis involving the left submandibular space with mass-effect in the anterior aspect of the submandibular gland. Atherosclerotic changes were noted in the carotid bulb bilaterally. FNA biopsy of the gingival lesion showed keratosis with moderate atypia and foci suspicious for well-differentiated invasive squamous cell carcinoma. FNA biopsy of the left neck mass showed necroinflammatory changes with rare cells suspicious for metastatic carcinoma. She was then seen for further management by Dr. Sherry Chacon in [place], [place], and she was recommended to undergo definitive surgery. However, her further evaluation with CT angiogram of the neck on 07/14/2019 showed severe stenosis involving the left internal carotid artery, estimated at 80%. Staging PET/CT on 07/23/2019 showed intense uptake at the left floor of the mouth with the osseous involvement of the mandible. There was left submandibular adenopathy with extracapsular extension into the submandibular gland. There was borderline upper abdominal adenopathy without FDG uptake, presumed to be reactive. There was no evidence of distant metastatic disease. She then underwent stenting of the left carotid artery, causing a delay in her definitive surgery. As such, it was opted to give her neoadjuvant chemotherapy with weekly carboplatin and paclitaxel in combination with Erbitux. She was not able to complete the Erbitux because of a hypersensitivity reaction to the test dose, but she did complete 1 cycle of treatment with carboplatin/paclitaxel on 08/12/2019. On 09/01/2019 she underwent segmental mandibulectomy, floor of mouth resection, neck dissection, tracheostomy, and pectoralis flap reconstruction. She also had a PEG tube placed. She tolerated the surgery well. Pathology showed grade 2 squamous cell carcinoma involving the left lower gingiva. The tumor measured 2.5 cm with a 3 mm depth of invasion. There was superficial direct invasion through the cortex of the mandible. There was evidence of cystic metastatic squamous cell carcinoma involving submandibular soft tissue measuring 4.5 cm, presumed to be extranodal. The closest surgical margin was 3 mm. There was involvement in 3/12 lymph nodes, the largest measuring 0.5 cm. Extranodal extension was not identified. Pathologic staging was pT4a, pN2b, M1. Her postoperative course was complicated by delayed healing of her pectoralis wound and by a fall at home resulting in a right femoral neck fracture. She underwent bipolar arthroplasty of the right hip on 11/15/2019. At discharge she initially went to [facility] for further rehabilitation, but she was then able to return to her own home. She was seen for follow-up here on 12/23/2019. Due to the lymph node involvement and the metastatic involvement in the left submandibular soft tissue, she was recommended to have postoperative adjuvant radiation. I recommended against concurrent chemotherapy due to her multiple comorbidities and marginal performance status. She completed radiation on 03/07/2020 to a total dose of 6000 cGy administered in 30 fractions. The treatment field included the oral cavity and both sides of the neck. A restaging PET/CT on 07/01/2020 showed activity in the left mandibular resection bed consistent with postsurgical inflammation. There also appeared to be inflammatory activity at the left hyoid. A region of discrete increased activity in the left cervical level IV soft tissue measuring 8 mm, SUV 5.0, was felt to be suspicious for recurrence. Also noted on that study were bilateral interstitial lung infiltrates or fibrosis. There were no other areas of significant FDG uptake. She had surgical oncology follow-up with [facility] on 07/21/2020. She underwent biopsy of the left cervical lymph node on 07/27/2020. Pathology showed moderately differentiated squamous cell carcinoma, focally necrotic. After further discussion with Dr. Chacon, it was recommended that she return here for consideration of systemic therapy, as it was felt that she was not medically suitable for an extensive surgical resection. Her restaging neck CT on 09/08/2020 showed extensive prior postoperative changes of left partial mandibulectomy/flap reconstruction/radical neck dissection. A new peripheral enhancing fluid collection consistent with abscess was noted within the superficial flap and 2 smaller peripheral enhancing low-attenuation collections were noted in the lower left neck and along the right hyoid bone. There was significant edema in the left neck soft tissues. Chest CT on 09/11/2020 showed chronic emphysema with pulmonary fibrosis and chronic interstitial lung disease. There were no metastatic lesions identified. Small nodes in the mediastinum at the celiac axis appeared stable. With those findings, she was recommended to begin a trial of immunotherapy with pembrolizumab. Her other medical illnesses, in addition to the sarcoidosis, include hypertension, hyperlipidemia, atrial fibrillation and peripheral neuropathy. She has a history of diverticulitis, and she also has a history of anxiety/depression. She is a non-smoker. INTERIM HISTORY: She began cycle 1 of pembrolizumab on 09/14/2020. She tolerated the initial infusion without any adverse effects. She then continued treatment at 3-week intervals. During follow-up she was found to have hypothyroidism, for which she began on thyroid replacement therapy. She otherwise tolerated the treatment with no adverse effects. As of 04/11/2021 she received her 11th cycle of treatment with pembrolizumab. Following that treatment, she had developed some increased swelling on the left side of her neck. A repeat neck CT on 04/18/2021 showed a prominent fluid collection in the left neck measuring 4 x 4 x 1.8 cm. The collection was noted to extend medially and inferiorly along the left carotid sheath and it was noted to extend laterally to just under the skin surface. There was no obvious new lymphadenopathy or other evidence of disease progression. She subsequently had spontaneous drainage of a least a couple or more of fluid. A scheduled restaging chest CT on 04/30/2021 reported a 2.4 x 2.9 cm mass in the left neck just deep to the left sternocleidomastoid muscle, unchanged in appearance from previous studies. There was no significant lymphadenopathy in the chest and there was no suspicious pulmonary mass or nodule identified. As of her follow-up visit on 07/03/2020 she appeared stable clinically, and she continued treatment with pembrolizumab. She returned in May for a scheduled treatment, and at that point the pembrolizumab was put on hold, as she had developed a new skin eruption which was suspicious for bullous pemphigoid. She began on steroid therapy with prednisone, and she was referred to Dr. Willard. Her further management was complicated by very poor tolerance for steroid therapy. In the meantime, her repeat neck CT on 07/26/2021 showed a significant increase in the volume of enhancing viable tumor on the left side of the neck, with the lesion extending medially to the left lobe of the thyroid and encasing the left internal carotid artery. There was also extension anteriorly and laterally and there was extension inferiorly to the left retroclavicular space and superiorly to the mid C4 level. The lesion measured in the range of 5 x 4 x [address] Her cervical spine [address] on 07/31/2021 showed significant degenerative changes with multiple areas of disc space narrowing and foraminal stenosis. There is no metastatic disease noted in the spine. She is seen for a follow-up visit. She has been feeling a little better generally, as her steroid doses has been tapered down, now to 5 mg every other day. She continues to have have widespread skin lesions associated with the pemphigus, but at this point they are not particularly itchy or painful. She says her energy is okay, but she does have limited activity, and she does have to rest a lot. Her ECOG score is 2. Her appetite lately has not been good. She is having more difficulty swallowing. She has not had fever or night sweats. She does not complain of cough, and she is not having shortness of breath or chest pain. She has no GI or complaints. She has having neck pain, though not as severe as it had been previously. She does not complain of headache. She is somewhat unsteady, but that also has improved. She has mild neuropathy in her feet. Medications: Benadryl Allergy 1 Tablet (of 25 mg) Oral at bedtime, Clobetasol Propionate 1 Applicator (of 0.05 %) Cream Topical b.i.d., Clopidogrel Bisulfate 1 Tablet (of 75 mg) Oral daily, Keytruda Intravenous, Levothyroxine Sodium 1 Tablet (of 75 mcg) Oral daily, Mupirocin (2 %) Ointment Topical Take as Directed, PredniSONE 1 (10 mg) Tablet Oral t.i.d., traZODone HCl 1 Tablet (of 50 mg) Oral daily, Tylenol Extra Strength Tablet Oral PRN, Zoloft 1 (100 mg) Tablet Oral daily Allergies: PCN-Anaphylaxsis and Sulfa. Vital Signs: Performed on Aug 13, 2021 09:34 Height - 63.00 in Weight - 100.8 lbs BSA - 1.45 sq.m BMI - 17.86 (LOW) Temperature - 97.8 F (LOW) Pulse - 101 /min (HIGH) Respiration - 17 /min BP - 151/72 mm(hg) (HIGH) O2 Sat - 97 % Pain - 2 Fatigue - 5 Physical Examination: Constitutional - She appears somewhat frail generally, Eyes - Sclerae nonicteric. Conjunctivae clear, ENMT - Mouth is dry. There are no mucosal lesions noted, Neck - There is induration on both sides of the neck. There is a mass palpable in the lower left neck. There is an associated open wound, Hematologic/Lymphatic - There is no other adenopathy noted, Respiratory - Lungs are clear with good air movement bilaterally, Cardiovascular - Heart rhythm is regular. There is a mild tachycardia. There is no murmur, gallop, or rub noted, Abdomen - Soft. Liver and spleen are not enlarged. There is no abdominal mass or ascites noted and there is no inguinal adenopathy, Extremities - No edema, Integumentary - There are widespread skin lesions which appear consistent with bullous pemphigoid, mostly in healing phase, Neurologic - No focal neurologic deficits noted. Problem List: 1. 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 She now has biopsy proven recurrence in a left level IV cervical lymph node. 2. Hypertension. 3. Hyperlipidemia. 4. Atrial fibrillation. 5. Carotid artery stenosis requiring stenting of the left carotid artery. 6. Sarcoidosis. 7. Peripheral neuropathy. 8. History of diverticulitis. 9. History of traumatic right femoral neck fracture requiring bipolar right hip arthroplasty on 11/15/2019. 10. Anxiety/depression. Problems Addressed with this Encounter and Plan: 1. 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 Due to surgery being delayed for stenting of the left carotid artery, she began neoadjuvant chemotherapy with weekly Erbitux, carboplatin, and paclitaxel. Treatment was limited to 1 cycle of carboplatin/paclitaxel. Erbitux was not administered due to a hypersensitivity reaction to the test dose. She then underwent segmental mandibulectomy, floor of mouth resection, neck dissection, tracheostomy, and pectoralis flap reconstruction on 09/01/2019. She also underwent placement of PEG tube. Pathologic staging was pT4a, pN2b, M1. Her postoperative course was complicated by delayed healing of her pectoralis wound and by a fall at home resulting in a right femoral neck fracture. She underwent bipolar arthroplasty of the right hip on 11/15/2019. She was seen for follow-up here on 12/23/2019. Due to the lymph node involvement and the metastatic involvement in the left submandibular soft tissue, she was recommended to have postoperative adjuvant radiation. Concurrent chemotherapy was not recommended due to her multiple comorbidities and marginal performance status. She completed radiation on 03/07/2020 to a total dose of 6000 cGy administered in 30 fractions. The treatment field included the oral cavity and both sides of the neck. A restaging PET/CT on 07/01/2020 showed a region of discrete increased activity in the left cervical level IV soft tissue measuring 8 mm, SUV 5.0, was felt to be suspicious for recurrence. There were no other areas of suspicious FDG uptake. Biopsy of the left cervical lymph node on 07/27/2020 confirmed moderately differentiated squamous cell carcinoma, focally necrotic. It was the opinion of her surgeon, Dr. Chacon, that she was not medically suitable for an extensive surgical resection. As such, she was recommended to proceed with a trial of immunotherapy. She then began cycle 1 of pembrolizumab on 09/14/2020. She reported some increased fatigue following that treatment, but she had no other apparent adverse effects. She then continued treatment at 3-week intervals. She has now completed 11 cycles. Overall, she has tolerated it well. During follow-up she has had issues with recurrent fluid collection in the left side of the neck, and she recently has had episodes of spontaneous fluid drainage. As of her follow-up visit on 05/02/2021 there has been no documented recurrence/progression of the malignancy, and she continued treatment with pembrolizumab. In May 2021 she presented with new onset of a skin eruption, appearance of which was consistent with bullous pemphigoid. Her treatment was put on hold, and she began on prednisone. Her further management has been complicated by very poor tolerance for steroid therapy. 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 Her steroid side effects have improved significantly with the prednisone dosage tapered to 5 mg every other day. She continues to have widespread skin lesions, but they are not particularly itchy or painful. Her recent neck CT, unfortunately, did show evidence of progression of the metastatic adenopathy on the left side of the neck. Her further treatment options are very limited. She certainly would not be eligible for any additional radiation. She is not interested in attempting any further surgery. There would be the potential for systemic therapy, which would most likely be an infusional 5-FU chemotherapy regimen. It also could potentially combined with cetuximab, though it would have the expected side effect of a skin eruption. The likelihood of benefit would be relatively low. I also discussed the possibility of referral to [facility]. At least for now she prefers to just continue with symptomatic management. I will see her for a follow-up visit in 1 month, or sooner as needed. 2. She recently developed new pain in the neck area. Her cervical spine CT showed significant degenerative changes, but there was no evidence of metastatic involvement in the spine. It has been managed symptomatically, and at this point the pain does appear to be improving. Signed By: Joao Coley M.D. <<Signature on File>>
== END 2021-08-13 09:00 | disposition home or self-care (01) ==
PROVIDERS: PCP Family Medicine; Visit Provider Internal Medicine Medical Oncology
DX: C03.1 Malignant neoplasm of lower gum (principal); C77.0 Secondary and unspecified malignant neoplasm of lymph nodes of head, face and neck; I10 Essential (primary) hypertension; E78.5 Hyperlipidemia, unspecified; I48.91 Unspecified atrial fibrillation; I65.22 Occlusion and stenosis of left carotid artery; D86.9 Sarcoidosis, unspecified; G62.9 Polyneuropathy, unspecified; F41.9 Anxiety disorder, unspecified; F32.A Depression, unspecified; Z87.19 Personal history of other diseases of the digestive system; Z96.641 Presence of right artificial hip joint; Z79.899 Other long term (current) drug therapy; Z92.21 Personal history of antineoplastic chemotherapy; Z92.3 Personal history of irradiation
CPT/HCPCS: 99214

== ENCOUNTER 2021-09-14 10:52 | Oncology outpatient (recurring) (ONCR) | payer MEDICARE, OTHER, SELFPAY | END 2021-10-09 23:59 | disposition home or self-care (01) | LOC: ONCMED 10:56 | PROVIDERS: PCP Family Medicine; Visit Provider Internal Medicine Medical Oncology | DX: C03.1 Malignant neoplasm of lower gum (principal); C77.0 Secondary and unspecified malignant neoplasm of lymph nodes of head, face and neck; L12.0 Bullous pemphigoid; Z79.52 Long term (current) use of systemic steroids; Z79.899 Other long term (current) drug therapy; Z92.21 Personal history of antineoplastic chemotherapy; Z92.3 Personal history of irradiation | CPT/HCPCS: 99214; 99999 ==

== ENCOUNTER 2021-11-06 09:29 | Oncology outpatient (recurring) (ONCR) | payer MEDICARE, OTHER, SELFPAY ==
[2021-11-06 10:06] LABS: Basophils # 0.1 10^3/uL (0.0-0.1); Basophils % 0.4 %; Eosinophils # 0.4 10^3/uL (0.0-0.8); Eosinophils % 1.8 %; Hematocrit 34.6 % (37.0-47.0); Hemoglobin 11.1 g/dL (11.5-15.3); Lymphocytes # 0.8 10^3/uL (0.8-4.8); Lymphocytes % 3.7 %; Mean Corpuscular HGB Conc 32.1 g/dL (30.0-36.0); Mean Corpuscular Hemoglobin 27.3 pg (28.0-34.0); Mean Platelet Volume 8.9 fL (7.4-10.4); Monocytes # 1.3 10^3/uL (0.2-0.9); Monocytes % 6.2 %; Neutrophils # 18.31 10^3/uL (1.8-7.7); Neutrophils % 87.2 %; Nucleated Red Blood Cells % 0 %; Platelet Count 447 10^3/cmm (130-400); Red Blood Count 4.07 10^6/uL (4.1-5.3); Red Cell Distribution Width 13.2 % (12.1-15.1)
[2021-11-06 10:34] LABS: Alanine Aminotransferase 13 U/L (0-33); Albumin Level 3.6 g/dL (3.5-5.2); Alkaline Phosphatase 123 IU/L (35-105); Anion Gap 16.6 (5-19); Aspartate Amino Transferase 18 U/L (0-32); Blood Urea Nitrogen 14 mg/dL (8-23); Calcium 9.7 mg/dL (8.5-10.5); Carbon Dioxide 24 mmol/L (22-29); Chloride 97 mmol/L (98-107); Glucose 122 mg/dL (65-115); Osmolality Calculated 280 mOsm/kg (285-295); Potassium 3.6 mmol/L (3.5-5.1); Sodium 134 mmol/L (136-145); Thyroid Stimulating Hormone 6.21 uIU/mL (0.27-4.20); Total Bilirubin 0.4 mg/dL (0.15-1.2); Total Protein 6.6 g/dL (6.6-8.7)
== END 2021-11-08 23:59 | disposition home or self-care (01) ==
PROVIDERS: PCP Family Medicine; Visit Provider Internal Medicine Medical Oncology
DX: C03.1 Malignant neoplasm of lower gum (principal); C77.0 Secondary and unspecified malignant neoplasm of lymph nodes of head, face and neck; R94.6 Abnormal results of thyroid function studies
CPT/HCPCS: 36415; 80053; 84443; 85025; 99215